=== PATIENT | male | born 1940 | race Caucasian/White ===

== ENCOUNTER → 2018-01-02 09:33 | Outpatient (CLI) | payer MEDICARE, SELFPAY ==
--- NOTE | 2018-01-02 09:55 | RAD_ITS ---
PROCEDURE: FLUOROSCOPIC GUIDED RIGHT SHOULDER ARTHROGRAM for pain management. DATE: 01/02/2018 CLINICAL INDICATION: Male, 77 years old. Right shoulder pain for years. Right shoulder osseous or arthritis. FLUOROSCOPY TIME: 0:36 min/sec. Total images: 4 CONSENT: Informed written and witnessed consent was obtained from the patient. The risks (including bleeding, infection, nerve damage, allergic reaction and capsular rupture), benefits, and alternatives to the examination were detailed and acknowledged by the patient. FINDINGS: The patient was draped and prepared in a sterile fashion. The entrance site was localized using fluoroscopic guidance. Local anesthesia was achieved with 1% lidocaine solution. A 22-gauge spinal needle and stylet were introduced with fluoroscopic guidance into the right shoulder joint capsule and approximately 3 cc 1% lidocaine and 3 cc of iodinated contrast (Omnipaque 300) was instilled into the joint space with extension to the vein under direct fluoroscopic observance. Subsequently, 4 cc 1% lidocaine and 2 cc betamethasone was injected into the joint space with the same 22-gauge spinal needle and tubing exchanging syringes. The needle was then removed after replacing the stylet. The entrance site was dressed with a Band-Aid. There were no immediate postprocedural complications identified. Appropriate imaging was obtained. Incidentally observed was a single rotator cuff anchor screw projecting over the superior-lateral humeral head. IMPRESSION: Normal right shoulder arthrogram and lidocaine/and betamethasone injection for pain management without immediate complication identified. Prior right rotator cuff surgical repair. Electronically Signed: Paulo Farias, at 12:59 EDT Tel , Service support , RAD/Inj/Asp [place] Jt Should/Hip/Knee
== END ==
PROVIDERS: Family Provider Nurse Practitioner Primary Care; PCP Nurse Practitioner Primary Care; Visit Provider Specialist
DX: M19.011 Primary osteoarthritis, right shoulder (principal)
CPT/HCPCS: 20610; 77002; Q9967; J0702

== ENCOUNTER 2019-04-18 11:21 | Outpatient (RCR) | payer MEDICARE, SELFPAY ==
--- NOTE | 2019-04-18 12:46 | HP.PTEVAL ---
Patient's Visit Information DEAN NOBLES is a 79 year old M referred to Physical Therapy by Alcides Grant MD with a diagnosis of NEUROPATHY. Date of Evaluation: 04/18/19 Physical Therapist: Alcides Cr PT, Cert MDT, OCS - Visit Plan Frequency: 1 VISIT Plan: RECOMMENDED PMD TO MAXIMIZE PATIENT LEVEL OF FUNCTION DUE TO POOR ENDURANCE,WEAKNESS LE ,POOR SENSATION LEGS ALONG WITH COMORBITIES . - Subjective Findings: This 79 y/o male presents to physical therapy with neuropathy. 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 Patient has limiations with walking about 20 feet ,but patient uses manual w/c mainly in home . Patient able to dress self,patient has walk in shower with chair and seat,grab rails. Patient does cooking.HOME SITUATION : 2story home with patient stays 1st floor walk out. Patient has parathesia/tingling lower legs unable feel light touch.Patient co ndition affects QOL and function. Patient has difficulty with ADLS' and housework tasks.Patient uses sleep apnea with sleeping.. Patient has 02 as needed. SOCIAL: . VOCATION: retired - Pain Right Shoulder Pain Intensity (Out of 10): 5 Pain Intensity Range: 10 - Objective POSTURE: posterior pelvic tilt ,stands with hips/knees flexed calcaneal valgus bilateral ankles. PALPATION : unremarkable. NEURO: parathesia below knees ,light touch absent below lower legs,reflexes L3-4,L4-5,L5-S1 1/2. TRANSFERS: sit stand mod Independant. BED MOBLITY: mod I with supin-sit. GAIT: Ambulates with fww foward posture calcaneal valgus bilateral ankle ,hip knees flexion slow 20 ft with SBA. BALANCE: fair- with fww. AROM: knee flexion 10-110 supine knee flexion,hip flexion 90 right left 95 degree,BUE ROM WFL shoulder flexion 130 degrees. MMT: quads/hams 4-/5,hip flexion 3+/5,ankle DF 3/4,PF 2/3,hip abd 2/5,BUE 4-/5 except shoulder 3+/ - Goals Goal 1:: Recommend PMD to maximize patient moblity . Goal Time Frame: 1 visit - Rehabilitation Potential Physical Therapy Diagnosis: This patient has multiple comorbities along with poor endurance ,decrease strength ,poor senstation lowe legs,decrease gait thus benifit from PMD for in home and community mobility to maximize patients level of function. Rehabilitation Potential: Fair - Anticipated Interventions Patient/Client Instruction: Educate patient on: Condition, Plan of Care For the Purpose of:: Other Other: PMD-POWER MOTOR DEVICE Thank you for the opportunity to evaluate your patient. For Medicare and Medicare HMO plans, please review the plan of care and approve it. It will need to be FAXED BACK to us at [phone] for Medicare purposes. For Medicare only, by signing this I certify the plan of care. Please let me know if there are questions or concerns regarding this plan of care. Physician Signature: Date:
== END 2019-04-18 19:00 | disposition home or self-care (01) ==
LOC: PT 11:21
PROVIDERS: Family Provider Nurse Practitioner Primary Care; PCP Nurse Practitioner Primary Care; Visit Provider Psychiatry & Neurology Neurology
DX: G62.9 Polyneuropathy, unspecified (principal)
CPT/HCPCS: 97163

== ENCOUNTER 2019-08-21 08:41 | Inpatient (IN) | payer MEDICARE, SELFPAY ==
--- NOTE | 2019-08-05 12:44 | HP.PCM_ITS ---
History and Physical History and Physical Patient Name: Maninder Camp : 1940 From: NINFA MARCIAL PA-C DATE OF SURGERY: 08/21/2019 SCHEDULED PROCEDURE: right reverse total shoulder arthroplasty HISTORY OF PRESENT ILLNESS: Preoperative history and physical exam was performed on August 05, 2019. This is a 79-year-old male who has been having ongoing pain in his right dominant shoulder for the past 1-2 years. His pain as being constant. Patient does have a history of a previous rotator cuff repair approximately [address] Singh. Patient denied any postoperative complications. Pain can reach a size a 10/10 with activities. He has difficulty with overhead activity and reaching out. Patient is wheelchair bound and is dependent upon his upper extremities for transfers. The shoulder pain has significantly affected his ability throughout the day as well as his independence. X-rays have shown severe glenohumeral osteoarthritis. Patient has attempted intra-articular corticosteroid injection with no relief in symptoms. He has been through formal physical therapy without relief. After failing conservative measures and discussing treatment options with Dr. Yifan Gottlieb, the patient does wish to proceed with a right reverse total shoulder arthroplasty. We are obtaining surgical clearance from patient's primary care physician Niecy Moe, nurse practitioner. Patient denies chest pain, short of breath, fevers chills, recent infections. Patient does have medical history pertinent for significant neuropa thy in which she has required use wheelchair and has limited mobility. He also has history of sleep apnea, and probable benign prostatic hyperplasia in which he uses Flomax. Patient states he sees a urologist but does not know his definitive diagnosis. She does have history of thyroid disease and hypertension. REVIEW OF SYSTEMS: ROS: Const: Denies change in appetite, fever,or weight change. CV: Denies chest pain, heart murmur and irregular heartbeat. Resp: Reports pneumonia, but denies cough, SOB, tuberculosis and wheezing. GI: Denies constipation, diarrhea, difficulty swallowing, heartburn, nausea, bloody stools and vomiting. : Urinary: denies incontinence. Musculo: Reports trouble walking and weakness, but denies leg swelling and limp. Skin: Denies Raynaud's, history of shingles and tattoo. Neuro: Reports numbness/tingling but denies ambulatory dysfunction, dizziness and tremor. Psych: Reports anxiety and stress, but denies insomnia. Eduard/Lymph: Denies anemia, bleeding/bruising tendency and past transfusion. Reviewed, no changes. PAST MEDICAL HISTORY: Advance Care Plan: Other Directive, POA Effective Date: 07/25/2019 PMH: Medical Problems: Arthritis, High Blood Pressure, Sleep Apnea, Thyroid Disease Accidents: None Surgical Hx: Hernia Repair, Tonsillectomy RT Shoulder - (02/2018) Hip Replacement LT - (2013) Hip Replacement RT - (2013) LT Foot Anesthesia Complications: None Assistive Devices: Glasses, Dentures, Walker, Electric Wheelchair Reviewed, no changes. SOCIAL HISTORY: SH: Marital: .Occupation: Retired.Work Status: Retired.Hand Dominance: Right-handed. Personal Habits: Cigarette Use: Never Smoked Cigarettes.Alcohol: Denies use.Drug Use: Denies Use.Enjoy Exercising: Exercises 1-3 X/Week. Reviewed, no changes. VITALS: Ht: 68 Wt: 247lb Wt k.039 BMI: 37.6 BP: 130/84 Pulse: 68 Resp: 16 T: 97.3 T: 36.3C ALLERGIES: Ahist Antihistamine MEDICATIONS: Meloxicam 7.5 mg 1 by mouth twice a day, Tamsulosin HCL 0.4 mg 1 by mouth every day, Duloxetine HCL 60 mg 1 by mouth every day, Olanzapine 10 mg 1po qday, Diltiazem CD 240 mg 1po qday, Furosemide 20 mg 1 by mouth every day, Simvastatin 20 mg 1 by mouth every day, Losartan Potassium 50 mg 1 by mouth every day, Xanax 1 mg 1 tab by mouth 3 times daily, Levothyroxine Sodium 125 mcg 1 tab by mouth daily, Ferrous Sulfate 325 mg 2 by mouth every day, Tolterodine Tartrate 2 mg 1 by mouth every day PRE-OP EXAM: General appearance:NORMAL Other: Eyes: Conjunctivae and lids: NORMAL Pupils: ERR Ears, Nose, Mouth, and Throat: NORMAL Other: Inspection of lips, teeth and gums: NORMAL Other: Neck: Examination of neck: no masses noted. Respiratory: Assessment of respiratory effort: NORMAL Other: Auscultation of lungs: clear to auscultation no wheezes, rhonchi or rales. Cardiovascular: Auscultation of heart: regular rate and rhythm, no murmurs, gallops or rubs. Gastrointestinal: Exam of abdomen: soft, nontender, nondistended bowel sounds present. PHYSICAL EXAMINATION: Right shoulder scope to touch without erythema or signs of infection. Previous incisions/scars are well-healed without erythema. There is no significant atrophy. Range of motion: Forward flexion 110 actively on the right and 130 on the left, external rotation 25 bilaterally, internal rotation L5 on the right and L3 on the left. Supraspinatus strength is 4+/5 bilaterally. Sensation intact to light touch. IMAGING STUDIES: Previous x-rays of the right shoulder reveal severe humeral osteoarthritis with joint space narrowing, posterior erosions of the glenoid and osteophyte forma tion. There is previous anchor in the humeral head consistent with rotator cuff repair. There is sclerosis on the undersurface of the acromion and lateral greater tuberosity consistent with chronic rotator cuff dysfunction. IMPRESSION: 1. 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 Hypertension 3. Sleep apnea 4. Thyroid disease 5. Probable benign prostatic hyperplasia: Currently sees urologist but patient unable to give diagnosis, currently uses Flomax PLAN: Dr. Yifan Gottlieb did discuss and review with the patient all treatment options including surgical versus nonsurgical options. Patient does wish to proceed with the above-stated procedure. Potential risks, benefits, and complications of the procedure were discussed in detail including but not limited to , infection, nerve and blood vessel damage, persistent pain, numbness, tingling, paresthesias, blood clot, pulmonary embolism, and requirement for possible further surgery. The patient expressed full understanding and has no further questions for the doctor. Patient does agree to proceed with the above-stated procedure and has signed the surgery consent form. This dictation was created using voice recognition software. Phonetic and/or grammatical errors may exist. ___ I have re-examined the patient. There are no clinical changes since date of exam. ___ See progress notes for changes. ___ Dictated on admission Date: Time: Signature:
--- NOTE | 2019-08-05 13:05 | EKG12_ITS ---
Test Reason : Blood Pressure : / mmHG Vent. Rate : 073 BPM Atrial Rate : 073 BPM P-R Int : 226 ms QRS Dur : 110 ms QT Int : 414 ms P-R-T Axes : 043 -22 -12 degrees QTc Int : 456 ms Somatic/Motion Artifact Sinus rhythm with 1st degree A-V block with Fusion complexes Low voltage QRS Incomplete right bundle branch block Abnormal ECG Confirmed by KAITLIN CRUZ, LORENA ([id number]), photograph editor BASIL MG ([id number]) on 08/12/2019 1:38:19 PM Referred By: REGINA Moe Confirmed By:LORENA MADRIGAL MD
[2019-08-05 13:49] VITALS: BP 159/76; PULSE 74; RESP 18; TEMP 36.5; O2SAT 96; BMI 34.7
--- NOTE | 2019-08-05 14:15 | SDCEKG_ITS ---
Test Reason : Blood Pressure : / mmHG Vent. Rate : 071 BPM Atrial Rate : 071 BPM P-R Int : 240 ms QRS Dur : 118 ms QT Int : 376 ms P-R-T Axes : 034 -19 -12 degrees QTc Int : 408 ms Somatic/Motion Artifact Sinus rhythm with 1st degree A-V block with Fusion complexes Incomplete right bundle branch block Abnormal ECG Confirmed by KAITLIN CRUZ, LORENA ([id number]), makeup editor KAMI CAMPOS ([id number]) on 08/12/2019 9:38:09 AM Referred By: Niecy Moe Confirmed By:LORENA MADRIGAL MD
[2019-08-08 09:13] VITALS: BMI 34.7
[2019-08-21] VITALS (11 sets, daily range): BP systolic 123–160; BP diastolic 56–71; PULSE 52–105; RESP 16–20; TEMP 36.5–37.2; O2SAT 92–100; BMI 34.7
[2019-08-21] MEDS: Lactated Ringers 1,000 ML 100 ML IV (09:33)
[2019-08-21] MEDS: Gabapentin 600 MG Tablet PO (09:34)
[2019-08-21] MEDS: Acetaminophen 500 MG Tablet 1000 MG PO ×2 (09:34→19:39)
[2019-08-21] MEDS: Celecoxib 200 MG Capsule 400 MG PO (09:34)
[2019-08-21] MEDS: Magnesium Sulfate 4gm/100mL 4 GM/100 ML IV.SOLN. IV (09:35)
[2019-08-21 10:11] LABS: Bedside Glucose 74 mg/dL (70-110)
[2019-08-21] MEDS: Cefazolin 2 GM in 0.9% Normal Saline 100 ML IV (11:12)
[2019-08-21] MEDS: dexAMETHasone 10 MG/ML Vial IV (11:30)
[2019-08-21] MEDS: Ketorolac 30 MG/ML Syringe (12:45)
[2019-08-21] MEDS: Epinephrine (1 mg/ml) 1 MG/ML VIAL (12:45)
--- NOTE | 2019-08-21 12:45 | OP.PCM_ITS ---
Report of Operation Date of Procedure: 08/21/19 Pre-Operative Diagnosis: Right shoulder cuff tear arthropathy Post-Operative Diagnosis: Right shoulder cuff tear arthropathy Surgery/Procedure Performed:: Right reverse total shoulder replacement Description of Surgical Findings:: Stable shoulder, repaired subscapularis air conditioning engineer: Daniel Peraza Type of Anesthesia:: General Anesthesiologist: Derrell Arriaga Special Medications: 2 g Ancef, 1 g TXA at incision, 1 g TXA closure, 10 mg Decadron, joint cocktail (5 mg Duramorph, 30 mL of 0.5% Ropivicaine, 1000 units of epinephrine, 30 mg of Toradol), IV vancomycin Specimen's removed: Bony cuts Estimated Blood Loss (mL): 200 mL Fluids Replaced: 1500 mL crystalloid Description of Procedure: Components used, [place] reunion reverse total shoulder system 1. Standard glenoid baseplate 2. 36 mm +6 mm Glenosphere 3. 36 mm, 4mm humeral liner 4. reverse TSA humeral adapter tray 4mm 5. Short humeral stem primary press-fit 17 mm size Brief history/Operative indications: 79 yo m with history of R shoulder pain and cuff tear arthropathy. Patient failed conservative measures as mentioned in the H&P. After discussion of risk and benefits of reverse total shoulder replacement including but not limited to blood loss, DVTs, PEs, nerve vessel damage, infection, general risk of anesthesia including loss of life, instability and stiffness patient demonstrating understanding wish to proceed was able to sign informed consent. Medical clearance was obtained. Patient is walker dependent due to other disabilities. Due to this we discussed the risk of early failure and protected weightbearing for the first 3 months after surgery. This will also likely require additional care and potential group home postoperatively. Procedure: On the date of the procedure, patient's r upper extremity was marked in the preoperative area. Patient was taken back to the operating room where they were placed on the table in the supine position. Anesthesia assumed control of the C-spine and airway, then administered anesthetic. All bony prominences were identified well-padded, the head was secured and the patient was placed in the beachchair position at about 35? inclination. Anesthesia remained in control of the C-spine airway throughout the remainder of the procedure. Patient was then appropriately fastened to the table and the r upper extremity was prepped in a sterile fashion. The surgeons then scrubbed. Upon reentering the room, the r upper extremity was draped in a sterile fashion and the incision was marked out. Timeout was called, everyone agreed upon the side, the site, the procedure to be performed, patient identity and antibiotics given. Incision was taken down through skin and subcutaneous tissue, fat down to fascia. The stripe of the deltopectoral interval and cephalic vein were identified and blunt dissection was used to retract the deltoid. The cephalic vein was retracted laterally. Clavipectoral fascia was then incised and a cobra retractor was placed in the wound. The proximal one third of the pectoralis major insertion was released. Pectoralis tendon insertion was used to tenodesed the biceps tendon which was identified in the bicipital groove. Tenodesis was done with #1 Vicryl. Proximally we followed the biceps tendon after transecting it into the rotator interval. The rotator interval was split and the arm was externally rotated. The split was 1 cm medial to the bicipital groove. Subscapularis tendon was released. We released down the anterior portion of the humeral head and a alexandra elevator was used to release the inferior portion of the humeral head. The arm was externally rotated and the shoulder was dislocated. Anatomic version was used to make humeral cut. Once his humeral head cut was made humerus was retracted out of the way and the glenoid was exposed. After exposing the glenoid, the labrum and the remaining proximal biceps were debrided. At this time we are able to view the entire outer edge of the glenoi d. A central pin was placed we sequentially reamed over this central pin to 36mm. Once this was completed the central pedicle was drilled. The glenoid baseplate was impacted into place. Wound was closely irrigated out with normal saline we then drilled sequentially for 3 screws. Screws were placed superiorly and inferiorly and tightened down the screws. Then anteriorly. Once the screws were appropriately tightened into place the glenoid baseplate was compressed against the exposed subchondral bone. 36 mm glenosphere was impacted into place engaging the Jimenez taper. The central screw was then tightened into place. Attention was then turned towards the humerus. The humerus was again externally rotated exposing the proximal portion of the humerus. Central canal finder was then used to open up the canal. We reamed to a 17mm reamer. We then broached to a 17mm stem. We trialed the 4mm liner, with the 4mm humeral baseplate. We obtained an adequate reduction at this time with a nice stable shoulder. Good internal rotation to the gluteus, forward elevation to 140?, external rotation to 20?. Final components were then assembled on the back table, trials were removed and the wound was copiously irrigated with normal saline after dislocating the shoulder. Once the final components were assembled they were impacted into place. Shoulder was then reduced and found to be stable with good range of motion. Subscapularis tendon was repaired using #2 FiberWire. The wound was then copiously irrigated out with a 1 L normal saline lavage. The deltopectoral fascia was then closed using #1 Vicryl skin was closed using 2-0 Vicryl interrupted sutures and final skin closure was done with 3-0 Monocryl. Steri-Strips are placed for final skin closure. Sterile dressing was placed patient was then placed in a sling and awakened by anesthesia. Patient was then transferred to the PACU for recovery. Postoperative plan: Patient will be admitted to the hospital overnight. They will get physical therapy starting in 2 weeks with normal postoperative regimen. Patient will be placed on aspirin daily for DVT prophylaxis. The first postoperative appointment will be in 2 weeks for wound check and initiation of phase 1 physical therapy. Grafts/Implants Used: Kylie reunion - Complications No intraoperative complications - Admit VTE Documentation VTE Present on Admission: No VTE Mechan Device Prophylaxis: SCD's, Knee High MONE Hose VTE Pharm Prophylaxis ordered?: Yes
--- NOTE | 2019-08-21 12:51 | RAD_ITS ---
STUDY: X-RAY - RIGHT SHOULDER REASON FOR EXAM: Postop right shoulder arthroplasty. TECHNIQUE: 2 view(s) of the shoulder. COMPARISON: Shoulder radiograph obtained earlier today. FINDINGS: There is a reverse shoulder arthroplasty without evidence of complication. Status post subacromial decompression/excision of the distal clavicle. There is postoperative gas in the soft tissues. There are overlying leads. Normal visualized pulmonary apex. RAD/Shoulder min 2 Views IMPRESSION: Uncomplicated reverse shoulder arthroplasty. Electronically Signed: Bryce Zapien MD at 14:28 EST Tel , Service support ,
--- NOTE | 2019-08-21 12:54 | RAD_ITS ---
STUDY: X-RAY - RIGHT SHOULDER REASON FOR EXAM: Male, 79 years old. Possible foreign body during surgery. TECHNIQUE: Single frontal view(s) of the shoulder. COMPARISON: None. FINDINGS: The patient is status post right shoulder replacement. No radiopaque foreign body seen. RAD/Shoulder One View IMPRESSION: No radiopaque foreign body is seen. Electronically Signed: Baldemar Tracy, at 13:23 EST , Service support ,
--- NOTE | 2019-08-21 16:27 | PCM.PROGNOTE ---
Subjective: Patient seen and examined. Underwent right reverse total shoulder replacement today with Dr. Gottlieb. Currently resting comfortably in bed. Hospitalist services consulted for medical management. He has a past medical history of hypertension, hyperlipidemia, obstructive sleep apnea, hypothyroidism, BPH, depression, iron deficiency anemia. - Physical Exam Vitals/I&O's: Vital Signs Temp Pulse Resp BP Pulse Ox 98.2 F 84 16 157/63 H 96 08/21/19 14:59 08/21/19 14:59 08/21/19 15:00 08/21/19 14:59 08/21/19 15:00 Oxygen Flow Rate (L/min) 6 Oxygen Delivery Method Simple Mask Weight: 249 lb 1.957 oz Body Mass Index (BMI) 34.7 Intake and Output for Last 24 Hours 08/19/19 08/20/19 08/21/19 23:59 23:59 23:59 Intake Total 965 / 965 Balance 965 / 965 General: Alert, Oriented x3, Cooperative HEENT: Atraumatic, PERRLA, EOMI, Normocephalic Neck: Supple, No JVD, Negative Carotid Bruits Lungs: Clear to auscultation, Normal air movement Cardiovascular: Regular rate, Regular Rhythm, Normal S1, Normal S2, No murmurs Abdomen: Bowel Sounds Present, Soft, Non Tender, Non-Distended Extremities: No clubbing, No cyanosis, No edema, Capillary Refill Less than 3 Seconds Skin: No rashes, No breakdown Musculoskeletal: Tenderness - Right shoulder Neurological: Cranial nerves II-XII grossly intact, Neuro grossly intact Psych/Mental Status: Normal Affect, Appropriate Laboratory Results 08/21/19 09:39: POC Glucose 74 Current Medications Acetaminophen (Tylenol) 1,000 mg PO Q8 [facility] Alprazolam (Xanax) 1 mg PO TID [facility] Aspirin (Ecotrin) 81 mg PO DAILY@0800 [facility] Atorvastatin Calcium (Lipitor) 10 mg PO QHS [facility] Diltiazem HCl (Cardizem Cd) 240 mg PO QHS [facility] Duloxetine HCl (Cymbalta) 60 mg PO DAILY [facility] Enteral Nutritional Formula (Ensure Surgery) 237 ml PO TIDCM [facility] Famotidine (Pepcid) 20 mg PO DAILY [facility] Ferrous Sulfate (Ferrous Sulfate) 325 mg PO QHS [facility] Furosemide (Lasix) 10 mg PO DAILY [facility] Lactated Ringer's () 1,000 mls @ 100 mls/hr IV .Q10H [facility] Last Admin: 08/21/19 09:33 Dose: 100 mls/hr Documented by: Lactated Ringer's () 1,000 mls @ 125 mls/hr IV .Q8H [facility] Cefazolin Sodium () 1 gm in 50 mls @ 150 mls/hr IV Q8H [facility] Stop: 08/22/19 03:19 Sodium Chloride () 250 mls @ 15 mls/hr IV .[id number] PRN PRN Reason: Saline Flush Insulin Human Lispro (Humalog Kwikpen (Bkc)) 1 - 6 unit SC Q4H PRN PRN; Protocol PRN Reason: BG>/= 180, SEE PROTOCOL Stop: 08/21/19 17:30 Ketorolac Tromethamine (Toradol) 15 mg IV Q6H PRN PRN PRN Reason: Pain Score 1-5/10 Levothyroxine Sodium (Synthroid) 125 mcg PO DAILY@0600 [facility] Losartan Potassium (Cozaar) 50 mg PO DAILY [facility] Meloxicam (Mobic) 7.5 mg PO BID [facility] Morphine Sulfate () 2 - 4 mg IV Q2H PRN PRN PRN Reason: Pain Score 6-10/10 Morphine Sulfate () 2 - 4 mg IV Q2H PRN PRN PRN Reason: Pain Score 6-10/10 Olanzapine (Zyprexa) 10 mg PO DAILY [facility] Ondansetron HCl (Zofran) 4 mg IV Q8H PRN PRN PRN Reason: NAUSEA Oxycodone HCl (Oxyir) 2.5 mg PO Q4H PRN PRN PRN Reason: Pain Score 4-10/10 Promethazine HCl (Phenergan) 12.5 mg IM Q6H PRN PRN; Protocol PRN Reason: NAUSEA/VOMITING Senna/Docusate Sodium (Senokot-S, Loretta-Colace) 2 tablet PO BID [facility] Sodium Chloride () 10 - 40 ml IV UD PRN PRN Reason: SALINE FLUSH Tamsulosin HCl (Flomax) 0.4 mg PO QHS [facility] Tolterodine Tartrate (Detrol La) 2 mg PO DAILY [facility] Medical Necessity - Tobacco Use Smoking Status: Never smoker Tobacco Use: Non-smoker Assessment/Plan All Active Problems (This Medical Record has been edited. Action required.) Preop cardiovascular exam (Acute) Abnormal EKG (Acute) 1. Postop day 1 reverse right total shoulder replacement by Dr. Gottlieb- PT/PT/ PRN pain regimen. Management per Ortho. 2. Hypertension-stable, continue Cardizem, Lasix, losartan regimen. 3. Hyperlipidemia-continue statin. 4. Obstructive sleep apnea-continue home CPAP regimen. 5. Hypothyroidism-continue Synthroid. 6. BPH-continue Flomax, Detrol LA regimen. 7. Depression-continue duloxetine regimen. 8. Iron deficiency anemia-continue iron supplementation. Trend CBC. DVT prophylaxis-SCDs This patient was seen by REGINA Garcia under the supervision of Dr. Saleh.
[2019-08-21] MEDS: Ensure Surgery 237 ML LIQUID PO (17:33)
[2019-08-21] MEDS: Lactated Ringers 1,000 ML 125 ML IV (17:34)
[2019-08-21] MEDS: Cefazolin 1 GM/50 ML BAG IV (19:00)
[2019-08-21] MEDS: ALPRAZolam 0.5 MG Tablet 1 MG PO (21:30)
[2019-08-21] MEDS: Senna/Docusate Sodium 1 Tablet 2 TABLET PO (21:31)
[2019-08-21] MEDS: Atorvastatin Calcium 10 MG Tablet PO (21:31)
[2019-08-21] MEDS: Tamsulosin HCl 0.4 MG Capsule PO (21:31)
[2019-08-21] MEDS: dilTIAZem CD 240 MG Capsule PO (21:31)
[2019-08-21] MEDS: Ferrous Sulfate 325 MG Tablet PO (21:32)
[2019-08-22] MEDS: Cefazolin 1 GM/50 ML BAG IV (02:05)
[2019-08-22] MEDS: Lactated Ringers 1,000 ML 125 ML IV (02:05)
[2019-08-22] MEDS: Acetaminophen 500 MG Tablet 1000 MG PO ×3 (05:36→21:12)
[2019-08-22] MEDS: Levothyroxine 125 MCG Tablet PO (05:37)
[2019-08-22] MEDS: ALPRAZolam 0.5 MG Tablet 1 MG PO ×3 (05:37→21:11)
[2019-08-22 05:39] VITALS: BP 140/68; PULSE 86; RESP 18; TEMP 36.9; O2SAT 96
[2019-08-22 05:44] LABS: Hematocrit 34.1 % (40-54); Hemoglobin 11.2 g/dL (13.0-16.5); Mean Corp Hgb Conc 32.8 g/dL (32-36); Mean Corpuscular Hgb 30.1 pg (27.0-32.0); Mean Corpuscular Volume 91.7 fL (80-94); Mean Platelet Vol. 9.3 fl (6.2-12.0); Platelet Count 223 K/mm3 (150-450); RBC Distribution Width CV 13.8 % (11.6-14.6); RBC Distribution Width SD 47.1 fl (35.1-43.9); Red Blood Count 3.72 M/mm3 (4.6-6.2); White Blood Count 18.9 K/mm3 (4.4-11.0)
[2019-08-22 05:57] LABS: Anion Gap 4 (5-15); BUN 28 mg/dL (7-18); BUN/Creat Ratio 18.7 RATIO (10-20); Calcium,Total 8.4 mg/dL (8.5-10.1); Chloride 103 mmol/L (98-107); EST Glomerular Filtration Rate 48 mL/min (>60); Est Glom Filt Rate - Afr Amer 58 mL/min (>60); Estimated Creatinine Clearance 42.53 ml/min; Glucose 149 mg/dL (74-106); Potassium 5.1 mmol/L (3.5-5.1); Sodium Level 134 mmol/L (136-145)
[2019-08-22 07:48] VITALS: O2SAT 91
--- NOTE | 2019-08-22 08:06 | PN.ORTHO_ITS ---
Subjective: The patient was sitting in bed upon examination. Patient denies any chest pain, shortness of breath, dizziness, lightheadedness, nausea or vomiting, or calf pain. Pain is controlled on medications. No adverse overnight events. Patient presents in no acute distress and states he has very little right shoulder pain. Patient does have significant medical history with neuropathy and he does require his upper extremities for transfer as well as wheelchair use. He has limited mobility. Patient currently requires 2-3 nurse assist. Due to pat kathie's limitations he will most likely need [facility] facility postoperatively. Objective: Vital signs stable, afebrile Dressing is clean, dry, intact Ultra-sling fitting appropriately Sensation intact to axillary, radial, median, and ulnar distribution Motor intact to AIN, PIN, and ulnar nerve - Physical Exam Vitals/I&O's: Vital Signs Temp Pulse Resp BP Pulse Ox 98.5 F 86 18 140/68 H 91 08/22/19 05:39 08/22/19 05:39 08/22/19 05:39 08/22/19 05:39 08/22/19 07:48 Oxygen Flow Rate (L/min) 2 Oxygen Delivery Method Nasal Cannula Weight: 113 kg Body Mass Index (BMI) 34.7 Intake and Output for Last 24 Hours 08/20/19 08/21/19 08/22/19 23:59 23:59 23:59 Intake Total 2143.33 / 2143.33 866.67 / 866.67 Output Total 1200 / 1200 Balance 2143.33 / 2143.33 -333.33 / -333.33 General: Alert, Oriented x3, Cooperative, No apparent distress Laboratory Results 08/21/19 09:39: POC Glucose 74 08/22/19 05:10: WBC 18.9 H, RBC 3.72 L, Hgb 11.2 L, Hct 34.1 L, MCV 91.7, MCH 30.1, MCHC 32.8, RDW Std Deviation 47.1 H, RDW Coeff of Cherry 13.8, Plt Count 223, MPV 9.3 08/22/19 05:10: Sodium 134 L, Potassium 5.1, Chloride 103, Carbon Dioxide 27.0, Anion Gap 4 L, BUN 28 H, Creatinine 1.50 H, Estim Creat Clear Calc 42.53, Est GFR (MDRD) Af Amer 58 L, Est GFR (MDRD) Non-Af 48 L, BUN/Creatinine Ratio 18.7, Glucose 149 H, Calcium 8.4 L Current Medications Acetaminophen (Tylenol) 1,000 mg PO Q8 [facility] Last Admin: 08/22/19 05:36 Dose: 1,000 mg Documented by: Alprazolam (Xanax) 1 mg PO TID [facility] Last Admin: 08/22/19 05:37 Dose: 1 mg Documented by: Aspirin (Ecotrin) 81 mg PO DAILY@0800 [facility] Atorvastatin Calcium (Lipitor) 10 mg PO QHS [facility] Last Admin: 08/21/19 21:31 Dose: 10 mg Documented by: Diltiazem HCl (Cardizem Cd) 240 mg PO QHS [facility] Last Admin: 08/21/19 21:31 Dose: 240 mg Documented by: Duloxetine HCl (Cymbalta) 60 mg PO DAILY [facility] Enteral Nutritional Formula (Ensure Surgery) 237 ml PO TIDCM [facility] Last Admin: 08/21/19 17:33 Dose: 237 ml Documented by: Famotidine (Pepcid) 20 mg PO DAILY [facility] Ferrous Sulfate (Ferrous Sulfate) 325 mg PO QHS [facility] Last Admin: 08/21/19 21:32 Dose: 325 mg Documented by: Furosemide (Lasix) 10 mg PO DAILY [facility] Lactated Ringer's () 1,000 mls @ 125 mls/hr IV .Q8H [facility] Last Infusion: 08/22/19 02:25 Dose: 125 mls/hr Documented by: Sodium Chloride () 250 mls @ 15 mls/hr IV .[id number] PRN PRN Reason: Saline Flush Ketorolac Tromethamine (Toradol) 15 mg IV Q6H PRN PRN PRN Reason: Pain Score 1-5/10 Levothyroxine Sodium (Synthroid) 125 mcg PO DAILY@0600 [facility] Last Admin: 08/22/19 05:37 Dose: 125 mcg Documented by: Losartan Potassium (Cozaar) 50 mg PO DAILY [facility] Morphine Sulfate () 2 - 4 mg IV Q2H PRN PRN PRN Reason: Pain Score 6-10/10 Morphine Sulfate () 2 - 4 mg IV Q2H PRN PRN PRN Reason: Pain Score 6-10/10 Olanzapine (Zyprexa) 5 mg PO DAILY [facility] Ondansetron HCl (Zofran) 4 mg IV Q8H PRN PRN PRN Reason: NAUSEA Oxycodone HCl (Oxyir) 2.5 mg PO Q4H PRN PRN PRN Reason: Pain Score 4-10/10 Promethazine HCl (Phenergan) 12.5 mg IM Q6H PRN PRN; Protocol PRN Reason: NAUSEA/VOMITING Senna/Docusate Sodium (Senokot-S, Loretta-Colace) 2 tablet PO BID [facility] Last Admin: 08/21/19 21:31 Dose: 2 tablet Documented by: Sodium Chloride () 10 - 40 ml IV UD PRN PRN Reason: SALINE FLUSH Tamsulosin HCl (Flomax) 0.4 mg PO QHS [facility] Last Admin: 08/21/19 21:31 Dose: 0.4 mg Documented by: Tolterodine Tartrate (Detrol La) 2 mg PO DAILY [facility] Medical Necessity - Tobacco Use Smoking Status: Never smoker Tobacco Use: Non-smoker Assessment/Plan All Active Problems (This Medical Record has been edited. Action required.) Preop cardiovascular exam (Acute) Abnormal EKG (Acute) 1. S/P right reverse total shoulder arthroplasty POD #1 2. Continue Pain Medications: Tylenol primarily for pain control with oxycodone for severe breakthrough pain 3. DVT Prophylaxis: Aspirin 4. PT/OT: Nonweightbearing right upper extremity and no range of motion of right shoulder at this time. Continue with UltraSling at all times except 3-4 times daily working on range of motion of the elbow, wrist, hand only. He can use pendulum exercises as well. He will begin outpatient formal physical therapy 2 weeks postoperatively 5. H & H: 11.2/34.1, asymptomatic 6. Reactive leukocytosis: Currently 18.9, afebrile. Patient did receive Decadron intraoperatively 7. Continue postoperative medical management per medicine: Patient did have elevated creatinine level today at 1.5 but on preop lab work on August 13, 2019 creatinine was 1.17. Appreciate medical input for management of comorbidities. 8. Encouraged Incentive Spirometry 9. Disposition: Due to patient's comorbidities and significant neuropathy patient will most likely require additional care upon discharge. Patient currently requires significant use of his upper extremities for transfers and mobility. However since he has had the reverse total shoulder arthroplasty we do not want him putting any weight on the right upper extremity with transfers. Case management is involved and I would like physical therapy/Occupational Therapy to evaluate patient. Patient will most likely need additional care.
[2019-08-22 09:22] VITALS: BP 129/64; PULSE 93; RESP 18; TEMP 36.9; O2SAT 97
[2019-08-22] MEDS: Famotidine 20 MG Tablet PO (09:31)
[2019-08-22] MEDS: Senna/Docusate Sodium 1 Tablet 2 TABLET PO ×2 (09:33→21:13)
[2019-08-22] MEDS: DULoxetine Hcl 60 MG Capsule PO (09:33)
[2019-08-22] MEDS: Tolterodine Tartrate 2 MG CAP.SA PO (09:33)
[2019-08-22] MEDS: Furosemide 20 MG Tablet 10 MG PO (09:34)
[2019-08-22] MEDS: Losartan Potassium 50 MG Tablet PO (09:35)
[2019-08-22] MEDS: Aspirin E.C. 81 MG Tablet PO (09:35)
[2019-08-22] MEDS: 0.9% Saline Lock 10 ML Syringe IV (09:37)
[2019-08-22] MEDS: Ensure Surgery 237 ML LIQUID PO ×2 (09:37→15:42)
[2019-08-22] MEDS: OLANZapine 2.5 MG Tablet 5 MG PO (09:43)
--- NOTE | 2019-08-22 10:27 | PN_ITS ---
Subjective: Chief complaint: Follow-up after consultation for postoperative medical management. Patient seen and examined. No acute events overnight. This morning, he denied any right shoulder pain. He took only 2 Tylenol last night. No chest pain or shortness of breath. He mentioned that he does have some degree of chronic kidney disease but is not sure what his baseline kidney function. His vital signs are stable. - Physical Exam Vitals/I&O's: Vital Signs Temp Pulse Resp BP Pulse Ox 98.5 F 93 18 129/64 H 97 08/22/19 09:22 08/22/19 09:22 08/22/19 09:22 08/22/19 09:22 08/22/19 09:22 Oxygen Flow Rate (L/min) 2 Oxygen Delivery Method Nasal Cannula Weight: 249 lb 1.957 oz Body Mass Index (BMI) 34.7 Intake and Output for Last 24 Hours 08/20/19 08/21/19 08/22/19 23:59 23:59 23:59 Intake Total 2143.33 / 2143.33 1766.67 / 1766.67 Output Total 1200 / 1200 Balance 2143.33 / 2143.33 566.67 / 566.67 General: Alert, Oriented x3, Cooperative, No apparent distress HEENT: Atraumatic, PERRLA, EOMI, Normocephalic Oral: Moist Mucosa, No Gingival or Mucosal Lesions/ Ulcerations Neck: Supple, No JVD, Negative Carotid Bruits, Trachea Midline, Thyroid Normal Size and Texture Lungs: Clear to auscultation, Normal air movement, No rhonchi, No wheeze, No rales, Diminished Cardiovascular: Regular rate, Regular Rhythm, Normal S1, Normal S2, PMI Normal Abdomen: Bowel Sounds Present, Soft, Non Tender, Non-Distended, No Hepato- splenomegaly, Obese Extremities: No clubbing, No cyanosis, No edema Skin: No rashes, No breakdown Lymphatic: No Cervical, Supraclavicular, or Inguinal Adenopathy Neurological: Cranial nerves II-XII grossly intact, Motor Exam 5/5 strength throughout Psych/Mental Status: Normal Affect, Appropriate, Alert and oriented to time, place, person, mood and affect Laboratory Results 08/22/19 05:10: WBC 18.9 H, RBC 3.72 L, Hgb 11.2 L, Hct 34.1 L, MCV 91.7, MCH 30.1, MCHC 32.8, RDW Std Deviation 47.1 H, RDW Coeff of Cherry 13.8, Plt Count 223, MPV 9.3 08/22/19 05:10: Sodium 134 L, Potassium 5.1, Chloride 103, Carbon Dioxide 27.0, Anion Gap 4 L, BUN 28 H, Creatinine 1.50 H, Estim Creat Clear Calc 42.53, Est GFR (MDRD) Af Amer 58 L, Est GFR (MDRD) Non-Af 48 L, BUN/Creatinine Ratio 18.7, Glucose 149 H, Calcium 8.4 L Current Medications Acetaminophen (Tylenol) 1,000 mg PO Q8 [facility] Last Admin: 08/22/19 05:36 Dose: 1,000 mg Documented by: Alprazolam (Xanax) 1 mg PO TID [facility] Last Admin: 08/22/19 05:37 Dose: 1 mg Documented by: Aspirin (Ecotrin) 81 mg PO DAILY@0800 [facility] Last Admin: 08/22/19 09:35 Dose: 81 mg Documented by: Atorvastatin Calcium (Lipitor) 10 mg PO QHS [facility] Last Admin: 08/21/19 21:31 Dose: 10 mg Documented by: Diltiazem HCl (Cardizem Cd) 240 mg PO QHS [facility] Last Admin: 08/21/19 21:31 Dose: 240 mg Documented by: Duloxetine HCl (Cymbalta) 60 mg PO DAILY [facility] Last Admin: 08/22/19 09:33 Dose: 60 mg Documented by: Enteral Nutritional Formula (Ensure Surgery) 237 ml PO TIDCM [facility] Last Admin: 08/22/19 09:37 Dose: 237 ml Documented by: Famotidine (Pepcid) 20 mg PO DAILY [facility] Last Admin: 08/22/19 09:31 Dose: 20 mg Documented by: Ferrous Sulfate (Ferrous Sulfate) 325 mg PO QHS [facility] Last Admin: 08/21/19 21:32 Dose: 325 mg Documented by: Furosemide (Lasix) 10 mg PO DAILY [facility] Last Admin: 08/22/19 09:34 Dose: 10 mg Documented by: Lactated Ringer's () 1,000 mls @ 75 mls/hr IV .[id number] [facility] Stop: 08/22/19 02:14 Last Admin: 08/22/19 09:43 Dose: Not Given Documented by: Sodium Chloride () 250 mls @ 15 mls/hr IV .[id number] PRN PRN Reason: Saline Flush Ketorolac Tromethamine (Toradol) 15 mg IV Q6H PRN PRN PRN Reason: Pain Score 1-5/10 Levothyroxine Sodium (Synthroid) 125 mcg PO DAILY@0600 [facility] Last Admin: 08/22/19 05:37 Dose: 125 mcg Documented by: Losartan Potassium (Cozaar) 50 mg PO DAILY [facility] Last Admin: 08/22/19 09:35 Dose: 50 mg Documented by: Morphine Sulfate () 2 - 4 mg IV Q2H PRN PRN PRN Reason: Pain Score 6-10/10 Morphine Sulfate () 2 - 4 mg IV Q2H PRN PRN PRN Reason: Pain Score 6-10/10 Olanzapine (Zyprexa) 5 mg PO DAILY [facility] Last Admin: 08/22/19 09:43 Dose: 5 mg Documented by: Ondansetron HCl (Zofran) 4 mg IV Q8H PRN PRN PRN Reason: NAUSEA Oxycodone HCl (Oxyir) 2.5 mg PO Q4H PRN PRN PRN Reason: Pain Score 4-10/10 Promethazine HCl (Phenergan) 12.5 mg IM Q6H PRN PRN; Protocol PRN Reason: NAUSEA/VOMITING Senna/Docusate Sodium (Senokot-S, Loretta-Colace) 2 tablet PO BID [facility] Last Admin: 08/22/19 09:33 Dose: 2 tablet Documented by: Sodium Chloride () 10 - 40 ml IV UD PRN PRN Reason: SALINE FLUSH Last Admin: 08/22/19 09:37 Dose: 10 ml Documented by: Tamsulosin HCl (Flomax) 0.4 mg PO QHS [facility] Last Admin: 08/21/19 21:31 Dose: 0.4 mg Documented by: Tolterodine Tartrate (Detrol La) 2 mg PO DAILY [facility] Last Admin: 08/22/19 09:33 Dose: 2 mg Documented by: Medical Necessity - Tobacco Use Smoking Status: Never smoker Tobacco Use: Non-smoker Assessment/Plan This is a 79 years old male patient admitted for elective right reverse total shoulder replacement for right shoulder cuff tear/arthropathy and I am seeing this patient for follow-up after consultation for postoperative medical management. #1 status post reverse right total shoulder replacement: Postoperative day 1. This was done for right shoulder cuff tear/arthropathy. Pain is well controlled. He is on Tylenol PRN, IV morphine PRN as well as OxyIR PRN for pain. His vital signs are stable. Routine blood work from today revealed leukocytosis which is probably reactive, chronic anemia, creatinine of 1.50, BUN of 28 and patient does have a history of stage III chronic kidney disease. Orthopedic surgery on the case. Plan to continue same treatment, repeat CBC and BMP tomorrow morning. #2 stage III chronic kidney disease: Unknown baseline creatinine. Patient is aware that he has chronic kidney disease. Today's BUN is 28, creatinine 1.50. Plan to continue IV fluids, repeat BMP tomorrow morning. #3 hypertension: Blood pressure stable, continue Cardizem, losartan. #4 benign prostatic hypertrophy: Stable, continue Flomax. #5 hypothyroidism: Continue levothyroxine. #6 obstructive sleep apnea: Continue CPAP at night with the same home settings. #7 anxiety/depression: Stable, continue Xanax, Cymbalta and Zyprexa. #8 hyperlipidemia: Continue statins. #9 chronic anemia: Stable hemoglobin and hematocrit, continue iron supplement. #10 DVT prophylaxis: SCDs. This note was generated with [employer] dictation software. It may contain incorrect words, spelling, and punctuation that were not noted in checking the note before signing. Code Visit Inpatient E&M: 25061 Subs Hosp L2
--- NOTE | 2019-08-22 12:05 | CASEMGMT ---
EUGENE BATRES Face to Face with patient for initial transition planning/care coordination assessment. EUGENE BATRES introduced self and role at [facility]. Patient sitting in chair, alert and oriented, at bedside. Patient willing to participate in assessment and is able to answer all questions appropriately. Care providers, pharmacy, and demographics verified. Patient wishes to discharge to TCU if bed available, if not would like [facility]. Patient states he has no further needs or concerns at this time. SW updated regarding request for TCU. CM to follow for discharge planning needs that may arise. PCP: RADHA Moe Specialists: amber Gottlieb; Michael, nephrology; Rudy Preferred Pharmacy: [facility] Insurance: [employer] Prescription Benefit: yes Living Will/HPOA: yes, [place] LNOK: Living Arrangements: Patient lives with in lower level of home, which is handicap accessible. Patient independent for self care Transportation: DME/HHC: Patient has shower chair, raised toilet, grab bars, walker, wheelchair, oxygen 3lpm through [facility], cpap. Patient requesting to go to TCU at discharge. LIZZ checking on bed availability. EUGENE BATRES provided list of C in-network with insurance incase no beds available on TCU. Disposition Plan: TCU vs Home with HHC. Olga CORDERO, RN, CM
[2019-08-22 15:15] VITALS: BP 124/52; PULSE 79; RESP 16; TEMP 36.6; O2SAT 98
--- NOTE | 2019-08-22 15:29 | CASEMGMT ---
Social Work Note EUGENE Shelby updated this worker that pt is requesting TCU at discharge. LIZZ placed a call to referral line and provided referral. LIZZ spoke with Francie in TCU stating she will have a bed for pt on Monday. EUGENE Shelby placed a call to PA and updated PA on bed for pt on Monday and pt is able to stay at [facility] until Monday. LIZZ updated Francie in TCU of this. Plan: TCU Monday pending pre-cert Olga Adair FOOD TECHNICIAN, ROOF [employer]USS MACHINE TENDER
[2019-08-22 21:01] VITALS: BP 149/82; PULSE 75; RESP 16; TEMP 36.8; O2SAT 97
[2019-08-22] MEDS: dilTIAZem CD 240 MG Capsule PO (21:11)
[2019-08-22] MEDS: Ferrous Sulfate 325 MG Tablet PO (21:11)
[2019-08-22] MEDS: Tamsulosin HCl 0.4 MG Capsule PO (21:13)
[2019-08-22] MEDS: Atorvastatin Calcium 10 MG Tablet PO (21:14)
[2019-08-23 02:55] VITALS: BP 126/52; PULSE 67; RESP 16; TEMP 37; O2SAT 96
[2019-08-23] MEDS: Levothyroxine 125 MCG Tablet PO (05:32)
[2019-08-23] MEDS: ALPRAZolam 0.5 MG Tablet 1 MG PO ×3 (05:33→21:35)
[2019-08-23] MEDS: Acetaminophen 500 MG Tablet 1000 MG PO ×3 (05:33→21:33)
[2019-08-23 06:04] LABS: Absolute Lymphocyte Count 1.81 X10^3/uL (0.83-4.51); Absolute Neutrophil Count 9.8 X10^3/uL (2.0-7.7); Basophil# 0.02 X10^3/uL; Basophil% 0.2 % (0-1); Eosinophil# 0.14 X10^3/uL; Eosinophils% 1.1 % (0-5); Hematocrit 30.6 % (40-54); Hemoglobin 10.1 g/dL (13.0-16.5); Lymphocyte # 1.81 X10^3/ul (4.0); Lymphocyte % 13.7 % (19-41); Mean Corpuscular Hgb 30.3 pg (27.0-32.0); Mean Corpuscular Volume 91.9 fL (80-94); Mean Platelet Vol. 9.7 fl (6.2-12.0); Monocyte# 1.32 X10^3/uL; NRBC Flagged by Analyzer 0 % (0-5); Neutrophil # 9.83 X10^3/uL (2.7-7.7); Neutrophil % 74.6 % (47-70); Platelet Count 181 K/mm3 (150-450); RBC Distribution Width CV 14.2 % (11.6-14.6); Red Blood Count 3.33 M/mm3 (4.6-6.2); White Blood Count 13.2 K/mm3 (4.4-11.0)
[2019-08-23 06:24] LABS: Anion Gap 6 (5-15); BUN 35 mg/dL (7-18); BUN/Creat Ratio 25.7 RATIO (10-20); Calcium,Total 7.8 mg/dL (8.5-10.1); Chloride 102 mmol/L (98-107); Creatinine, Serum 1.36 mg/dL (0.70-1.30); EST Glomerular Filtration Rate 54 mL/min (>60); Est Glom Filt Rate - Afr Amer 65 mL/min (>60); Estimated Creatinine Clearance 46.91 ml/min; Glucose 99 mg/dL (74-106); Potassium 4.6 mmol/L (3.5-5.1); Sodium Level 135 mmol/L (136-145)
[2019-08-23 06:45] VITALS: O2SAT 94
--- NOTE | 2019-08-23 06:59 | PCM.PN.ORT ---
Subjective: The patient was sitting in bed upon examination. Patient denies any chest pain, shortness of breath, dizziness, lightheadedness, nausea or vomiting, or calf pain. Pain is controlled on medications. No adverse overnight events. Overall patient is doing well. He states he is only having Tylenol for pain control. Denies numbness and tingling. Patient will be discharged tomorrow to the transitional care unit at [facility]. Objective: Vital signs stable, afebrile Dressing is clean, dry, intact Ultra-sling fitting appropriately Sensation intact to axillary, radial, median, and ulnar distribution Motor intact to AIN, PIN, and ulnar nerve - Physical Exam Vitals/I&O's: Vital Signs Temp Pulse Resp BP Pulse Ox 98.6 F 67 16 126/52 H 96 08/23/19 02:55 08/23/19 02:55 08/23/19 02:55 08/23/19 02:55 08/23/19 02:55 Oxygen Flow Rate (L/min) 2 Oxygen Delivery Method CPAP Weight: 113 kg Body Mass Index (BMI) 34.7 Intake and Output for Last 24 Hours 08/21/19 08/22/19 08/23/19 23:59 23:59 23:59 Intake Total 2143.33 / 2143.33 2576.67 / 2576.67 200 / 200 Output Total 1750 / 1750 1400 / 1400 Balance 2143.33 / 2143.33 826.67 / 826.67 -1200 / -1200 General: Alert, Oriented x3, Cooperative, No apparent distress Laboratory Results 08/23/19 05:25: WBC 13.2 H, RBC 3.33 L, Hgb 10.1 L, Hct 30.6 L, MCV 91.9, MCH 30.3, MCHC 33.0, RDW Std Deviation 48.0 H, RDW Coeff of Cherry 14.2, Plt Count 181, MPV 9.7, Immature Gran % (Auto) 0.400, Neut % (Auto) 74.6 H, Lymph % (Auto) 13.7 L, [place] % (Auto) 10.0, Eos % (Auto) 1.1, Baso % (Auto) 0.2, Absolute Neuts (auto) 9.8 H, Absolute Lymphs (auto) 1.81, Nucleated RBC % 0 08/23/19 05:25: Sodium 135 L, Potassium 4.6, Chloride 102, Carbon Dioxide 27.0, Anion Gap 6, BUN 35 H, Creatinine 1.36 H, Estim Creat Clear Calc 46.91, Est GFR (MDRD) Af Amer 65, Est GFR (MDRD) Non-Af 54 L, BUN/Creatinine Ratio 25.7 H, Glucose 99, Calcium 7.8 L Current Medications Acetaminophen (Tylenol) 1,000 mg PO Q8 [facility] Last Admin: 08/23/19 05:33 Dose: 1,000 mg Documented by: Alprazolam (Xanax) 1 mg PO TID [facility] Last Admin: 08/23/19 05:33 Dose: 1 mg Documented by: Aspirin (Ecotrin) 81 mg PO DAILY@0800 [facility] Last Admin: 08/22/19 09:35 Dose: 81 mg Documented by: Atorvastatin Calcium (Lipitor) 10 mg PO QHS [facility] Last Admin: 08/22/19 21:14 Dose: 10 mg Documented by: Diltiazem HCl (Cardizem Cd) 240 mg PO QHS [facility] Last Admin: 08/22/19 21:11 Dose: 240 mg Documented by: Duloxetine HCl (Cymbalta) 60 mg PO DAILY [facility] Last Admin: 08/22/19 09:33 Dose: 60 mg Documented by: Enteral Nutritional Formula (Ensure Surgery) 237 ml PO TIDCM [facility] Last Admin: 08/22/19 15:42 Dose: 237 ml Documented by: Famotidine (Pepcid) 20 mg PO DAILY [facility] Last Admin: 08/22/19 09:31 Dose: 20 mg Documented by: Ferrous Sulfate (Ferrous Sulfate) 325 mg PO QHS [facility] Last Admin: 08/22/19 21:11 Dose: 325 mg Documented by: Furosemide (Lasix) 10 mg PO DAILY [facility] Last Admin: 08/22/19 09:34 Dose: 10 mg Documented by: Sodium Chloride () 250 mls @ 15 mls/hr IV .[id number] PRN PRN Reason: Saline Flush Ketorolac Tromethamine (Toradol) 15 mg IV Q6H PRN PRN PRN Reason: Pain Score 1-5/10 Levothyroxine Sodium (Synthroid) 125 mcg PO DAILY@0600 [facility] Last Admin: 08/23/19 05:32 Dose: 125 mcg Documented by: Losartan Potassium (Cozaar) 50 mg PO DAILY [facility] Last Admin: 08/22/19 09:35 Dose: 50 mg Documented by: Morphine Sulfate () 2 - 4 mg IV Q2H PRN PRN PRN Reason: Pain Score 6-10/10 Morphine Sulfate () 2 - 4 mg IV Q2H PRN PRN PRN Reason: Pain Score 6-10/10 Olanzapine (Zyprexa) 5 mg PO DAILY [facility] Last Admin: 08/22/19 09:43 Dose: 5 mg Documented by: Ondansetron HCl (Zofran) 4 mg IV Q8H PRN PRN PRN Reason: NAUSEA Oxycodone HCl (Oxyir) 2.5 mg PO Q4H PRN PRN PRN Reason: Pain Score 4-10/10 Promethazine HCl (Phenergan) 12.5 mg IM Q6H PRN PRN; Protocol PRN Reason: NAUSEA/VOMITING Senna/Docusate Sodium (Senokot-S, Loretta-Colace) 2 tablet PO BID [facility] Last Admin: 08/22/19 21:13 Dose: 2 tablet Documented by: Sodium Chloride () 10 - 40 ml IV UD PRN PRN Reason: SALINE FLUSH Last Admin: 08/22/19 09:37 Dose: 10 ml Documented by: Tamsulosin HCl (Flomax) 0.4 mg PO QHS [facility] Last Admin: 08/22/19 21:13 Dose: 0.4 mg Documented by: Tolterodine Tartrate (Detrol La) 2 mg PO DAILY [facility] Last Admin: 08/22/19 09:33 Dose: 2 mg Documented by: Medical Necessity - Tobacco Use Smoking Status: Never smoker Tobacco Use: Non-smoker Assessment/Plan 1. S/P right reverse total shoulder arthroplasty POD #2 2. Continue Pain Medications: Tylenol primarily for pain control with oxycodone for severe breakthrough pain. Patient is only required Tylenol for pain control at this time. 3. DVT Prophylaxis: Aspirin 4. PT/OT: Nonweightbearing right upper extremity and no range of motion of right shoulder at this time. Continue with UltraSling at all times except 3-4 times daily working on range of motion of the elbow, wrist, hand only. He can use pendulum exercises as well. He will begin outpatient formal physical therapy 2 weeks postoperatively 5. H & H: 10.1/30.6, asymptomatic 6. Reactive leukocytosis: Trending down currently 13.2, afebrile. Patient did receive Decadron intraoperatively. 7. Continue postoperative medical management per medicine: Patient does have underlying chronic kidney disease. Patient's creatinine has trended down and currently is 1.36 today. 8. Encouraged Incentive Spirometry 9. Disposition: Due to patient's comorbidities and significant neuropathy patient will most likely require additional care upon discharge. Patient currently requires significant use of his upper extremities for transfers and mobility. However since he has had the reverse total shoulder arthroplasty we do not want him putting any weight on the right upper extremity with transfers. Case management is involved and I would like physical therapy/Occupational Therapy to evaluate patient. Plan will be for discharge tomorrow to the transitional care unit at [facility].
[2019-08-23 07:45] VITALS: O2SAT 92
[2019-08-23 08:09] VITALS: BP 138/68; PULSE 72; RESP 22; TEMP 36.2; O2SAT 96
--- NOTE | 2019-08-23 08:39 | PCM.PROGNOTE ---
Subjective: Chief complaint: Follow-up after consultation for postoperative medical management. Patient seen and examined. No acute events overnight. Today, he denied any right shoulder pain. He denied any chest pain or shortness of breath. He denies fever or chills. Denied cough or sputum production. He denies any urinary symptoms. His vital signs are stable. - Physical Exam Vitals/I&O's: Vital Signs Temp Pulse Resp BP Pulse Ox 97.1 F L 72 22 H 138/68 H 96 08/23/19 08:09 08/23/19 08:09 08/23/19 08:09 08/23/19 08:09 08/23/19 08:09 Oxygen Flow Rate (L/min) 2 Oxygen Delivery Method Nasal Cannula Weight: 249 lb 1.957 oz Body Mass Index (BMI) 34.7 Intake and Output for Last 24 Hours 08/21/19 08/22/19 08/23/19 23:59 23:59 23:59 Intake Total 2143.33 / 2143.33 2576.67 / 2576.67 200 / 200 Output Total 1750 / 1750 1400 / 1400 Balance 2143.33 / 2143.33 826.67 / 826.67 -1200 / -1200 General: Alert, Oriented x3, Cooperative, No apparent distress HEENT: Atraumatic, PERRLA, EOMI, Normocephalic Oral: Moist Mucosa, No Gingival or Mucosal Lesions/ Ulcerations Neck: Supple, No JVD, Negative Carotid Bruits, Trachea Midline, Thyroid Normal Size and Texture Lungs: Clear to auscultation, No rhonchi, No wheeze, No rales, Diminished Cardiovascular: Regular rate, Regular Rhythm, Normal S1, Normal S2, PMI Normal Abdomen: Bowel Sounds Present, Soft, Non Tender, Non-Distended, No Hepato-splenomegaly, Obese Extremities: No clubbing, No cyanosis, No edema Skin: No rashes, No breakdown Lymphatic: No Cervical, Supraclavicular, or Inguinal Adenopathy Neurological: Cranial nerves II-XII grossly intact, Neuro grossly intact Psych/Mental Status: Normal Affect, Appropriate, Alert and oriented to time, place, person, mood and affect Laboratory Results 08/23/19 05:25: WBC 13.2 H, RBC 3.33 L, Hgb 10.1 L, Hct 30.6 L, MCV 91.9, MCH 30.3, MCHC 33.0, RDW Std Deviation 48.0 H, RDW Coeff of Cherry 14.2, Plt Count 181, MPV 9.7, Immature Gran % (Auto) 0.400, Neut % (Auto) 74.6 H, Lymph % (Auto) 13.7 L, [place] % (Auto) 10.0, Eos % (Auto) 1.1, Baso % (Auto) 0.2, Absolute Neuts (auto) 9.8 H, Absolute Lymphs (auto) 1.81, Nucleated RBC % 0 08/23/19 05:25: Sodium 135 L, Potassium 4.6, Chloride 102, Carbon Dioxide 27.0, Anion Gap 6, BUN 35 H, Creatinine 1.36 H, Estim Creat Clear Calc 46.91, Est GFR (MDRD) Af Amer 65, Est GFR (MDRD) Non-Af 54 L, BUN/Creatinine Ratio 25.7 H, Glucose 99, Calcium 7.8 L Current Medications Acetaminophen (Tylenol) 1,000 mg PO Q8 [facility] Last Admin: 08/23/19 05:33 Dose: 1,000 mg Documented by: Alprazolam (Xanax) 1 mg PO TID [facility] Last Admin: 08/23/19 05:33 Dose: 1 mg Documented by: Aspirin (Ecotrin) 81 mg PO DAILY@0800 [facility] Last Admin: 08/22/19 09:35 Dose: 81 mg Documented by: Atorvastatin Calcium (Lipitor) 10 mg PO QHS [facility] Last Admin: 08/22/19 21:14 Dose: 10 mg Documented by: Diltiazem HCl (Cardizem Cd) 240 mg PO QHS [facility] Last Admin: 08/22/19 21:11 Dose: 240 mg Documented by: Duloxetine HCl (Cymbalta) 60 mg PO DAILY [facility] Last Admin: 08/22/19 09:33 Dose: 60 mg Documented by: Enteral Nutritional Formula (Ensure Surgery) 237 ml PO TIDCM [facility] Last Admin: 08/22/19 15:42 Dose: 237 ml Documented by: Famotidine (Pepcid) 20 mg PO DAILY [facility] Last Admin: 08/22/19 09:31 Dose: 20 mg Documented by: Ferrous Sulfate (Ferrous Sulfate) 325 mg PO QHS [facility] Last Admin: 08/22/19 21:11 Dose: 325 mg Documented by: Furosemide (Lasix) 10 mg PO DAILY [facility] Last Admin: 08/22/19 09:34 Dose: 10 mg Documented by: Sodium Chloride () 250 mls @ 15 mls/hr IV .[id number] PRN PRN Reason: Saline Flush Ketorolac Tromethamine (Toradol) 15 mg IV Q6H PRN PRN PRN Reason: Pain Score 1-5/10 Levothyroxine Sodium (Synthroid) 125 mcg PO DAILY@0600 [facility] Last Admin: 08/23/19 05:32 Dose: 125 mcg Documented by: Losartan Potassium (Cozaar) 50 mg PO DAILY [facility] Last Admin: 08/22/19 09:35 Dose: 50 mg Documented by: Morphine Sulfate () 2 - 4 mg IV Q2H PRN PRN PRN Reason: Pain Score 6-10/10 Morphine Sulfate () 2 - 4 mg IV Q2H PRN PRN PRN Reason: Pain Score 6-10/10 Olanzapine (Zyprexa) 5 mg PO DAILY [facility] Last Admin: 08/22/19 09:43 Dose: 5 mg Documented by: Ondansetron HCl (Zofran) 4 mg IV Q8H PRN PRN PRN Reason: NAUSEA Oxycodone HCl (Oxyir) 2.5 mg PO Q4H PRN PRN PRN Reason: Pain Score 4-10/10 Promethazine HCl (Phenergan) 12.5 mg IM Q6H PRN PRN; Protocol PRN Reason: NAUSEA/VOMITING Senna/Docusate Sodium (Senokot-S, Loretta-Colace) 2 tablet PO BID [facility] Last Admin: 08/22/19 21:13 Dose: 2 tablet Documented by: Sodium Chloride () 10 - 40 ml IV UD PRN PRN Reason: SALINE FLUSH Last Admin: 08/22/19 09:37 Dose: 10 ml Documented by: Tamsulosin HCl (Flomax) 0.4 mg PO QHS [facility] Last Admin: 08/22/19 21:13 Dose: 0.4 mg Documented by: Tolterodine Tartrate (Detrol La) 2 mg PO DAILY [facility] Last Admin: 08/22/19 09:33 Dose: 2 mg Documented by: Medical Necessity - Tobacco Use Smoking Status: Never smoker Tobacco Use: Non-smoker Assessment/Plan This is a 79 years old male patient admitted for elective right reverse total shoulder replacement for right shoulder cuff tear/arthropathy and I am seeing this patient for follow-up after consultation for postoperative medical management. #1 status post reverse right total shoulder replacement: Postoperative day 2. This was done for right shoulder cuff tear/arthropathy. Pain is well controlled. He is on Tylenol PRN, IV morphine PRN as well as OxyIR PRN for pain. He has been afebrile, other vital signs are stable. WBC is trending down. Orthopedic surgery on the case. Plan to DC to TCU tomorrow morning. #2 stage III chronic kidney disease: Unknown baseline creatinine. Patient is aware that he has chronic kidney disease. Today's BUN is 35, creatinine 1.26, stable at baseline. #3 hypertension: Blood pressure stable, continue Cardizem and losartan. #4 benign prostatic hypertrophy: Stable, continue Flomax. #5 hypothyroidism: Continue levothyroxine. #6 obstructive sleep apnea: Continue CPAP at night with the same home settings. #7 anxiety/depression: Stable, continue Xanax, Cymbalta and Zyprexa. #8 hyperlipidemia: Continue statins. #9 chronic anemia: Stable hemoglobin and hematocrit, continue iron supplement. #10 DVT prophylaxis: SCDs, aspirin. This note was generated with Redicam dictation software. It may contain incorrect words, spelling, and punctuation that were not noted in checking the note before signing. Code Visit Inpatient E&M: 18263 Subs Hosp L2
[2019-08-23] MEDS: Famotidine 20 MG Tablet PO (09:25)
[2019-08-23] MEDS: Furosemide 20 MG Tablet 10 MG PO (09:25)
[2019-08-23] MEDS: Tolterodine Tartrate 2 MG CAP.SA PO (09:25)
[2019-08-23] MEDS: OLANZapine 2.5 MG Tablet 5 MG PO (09:25)
[2019-08-23] MEDS: DULoxetine Hcl 60 MG Capsule PO (09:25)
[2019-08-23] MEDS: Losartan Potassium 50 MG Tablet PO (09:25)
[2019-08-23] MEDS: Aspirin E.C. 81 MG Tablet PO (09:26)
[2019-08-23] MEDS: Senna/Docusate Sodium 1 Tablet 2 TABLET PO ×2 (09:26→21:34)
--- NOTE | 2019-08-23 11:32 | CASEMGMT ---
Social Work Note LIZZ received call from Francie in TCU stating pre-cert has been obtained for pt and pt can discharge to TCU tomorrow. LIZZ updated pt and pt's Diana on acceptance to TCU and approval and plan for TCU tomorrow. Pt states understanding. Green sheet on chart. 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
[2019-08-23] MEDS: Ensure Surgery 237 ML LIQUID PO (11:54)
[2019-08-23 13:58] VITALS: BP 124/54; PULSE 80; RESP 22; TEMP 36.6; O2SAT 96
[2019-08-23 19:57] VITALS: BP 133/58; PULSE 92; RESP 20; TEMP 36.8; O2SAT 95
[2019-08-23] MEDS: Ferrous Sulfate 325 MG Tablet PO (21:34)
[2019-08-23] MEDS: dilTIAZem CD 240 MG Capsule PO (21:35)
[2019-08-23] MEDS: Tamsulosin HCl 0.4 MG Capsule PO (21:35)
[2019-08-23] MEDS: Atorvastatin Calcium 10 MG Tablet PO (21:35)
[2019-08-24 01:58] VITALS: BP 151/72; PULSE 93; RESP 20; TEMP 37.1; O2SAT 95
[2019-08-24] MEDS: ALPRAZolam 0.5 MG Tablet 1 MG PO ×2 (06:01→14:19)
[2019-08-24] MEDS: Levothyroxine 125 MCG Tablet PO (06:02)
[2019-08-24] MEDS: Acetaminophen 500 MG Tablet 1000 MG PO ×2 (06:02→14:19)
--- NOTE | 2019-08-24 07:18 | PCM.PN.ORT ---
Subjective: Patient is doing well. No acute events overnight. Patient has been stable using some nasal cannula oxygen on an as-needed basis. Pain is controlled with Tylenol at this time. Still requiring significant assistance with therapy. Will benefit from intermediate. - Physical Exam Vitals/I&O's: Vital Signs Temp Pulse Resp BP Pulse Ox 98.8 F 93 20 H 151/72 H 95 08/24/19 01:58 08/24/19 01:58 08/24/19 01:58 08/24/19 01:58 08/24/19 01:58 Oxygen Flow Rate (L/min) 2 Oxygen Delivery Method CPAP Weight: 249 lb 1.957 oz Body Mass Index (BMI) 34.7 Intake and Output for Last 24 Hours 08/22/19 08/23/19 08/24/19 23:59 23:59 23:59 Intake Total 2576.67 / 2576.67 200 / 600 700 / 700 Output Total 1750 / 1750 1400 / 2340 1440 / 1440 Balance 826.67 / 826.67 -1200 / -1740 -740 / -740 General: Alert, Oriented x3, Cooperative Extremities: - - Right upper extremity: Dressings clean dry and intact. Sensations intact light touch axillary/R/M/U. Motor is intact distally R/M/U. Current Medications Acetaminophen (Tylenol) 1,000 mg PO Q8 [facility] Last Admin: 08/24/19 06:02 Dose: 1,000 mg Documented by: Alprazolam (Xanax) 1 mg PO TID [facility] Last Admin: 08/24/19 06:01 Dose: 1 mg Documented by: Aspirin (Ecotrin) 81 mg PO DAILY@0800 [facility] Last Admin: 08/23/19 09:26 Dose: 81 mg Documented by: Atorvastatin Calcium (Lipitor) 10 mg PO QHS [facility] Last Admin: 08/23/19 21:35 Dose: 10 mg Documented by: Diltiazem HCl (Cardizem Cd) 240 mg PO QHS [facility] Last Admin: 08/23/19 21:35 Dose: 240 mg Documented by: Duloxetine HCl (Cymbalta) 60 mg PO DAILY [facility] Last Admin: 08/23/19 09:25 Dose: 60 mg Documented by: Enteral Nutritional Formula (Ensure Surgery) 237 ml PO TIDCM [facility] Last Admin: 08/23/19 17:36 Dose: Not Given Documented by: Famotidine (Pepcid) 20 mg PO DAILY [facility] Last Admin: 08/23/19 09:25 Dose: 20 mg Documented by: Ferrous Sulfate (Ferrous Sulfate) 325 mg PO QHS [facility] Last Admin: 08/23/19 21:34 Dose: 325 mg Documented by: Furosemide (Lasix) 10 mg PO DAILY [facility] Last Admin: 08/23/19 09:25 Dose: 10 mg Documented by: Sodium Chloride () 250 mls @ 15 mls/hr IV .[id number] PRN PRN Reason: Saline Flush Ketorolac Tromethamine (Toradol) 15 mg IV Q6H PRN PRN PRN Reason: Pain Score 1-5/10 Levothyroxine Sodium (Synthroid) 125 mcg PO DAILY@0600 [facility] Last Admin: 08/24/19 06:02 Dose: 125 mcg Documented by: Losartan Potassium (Cozaar) 50 mg PO DAILY [facility] Last Admin: 08/23/19 09:25 Dose: 50 mg Documented by: Morphine Sulfate () 2 - 4 mg IV Q2H PRN PRN PRN Reason: Pain Score 6-10/10 Morphine Sulfate () 2 - 4 mg IV Q2H PRN PRN PRN Reason: Pain Score 6-10/10 Olanzapine (Zyprexa) 5 mg PO DAILY [facility] Last Admin: 08/23/19 09:25 Dose: 5 mg Documented by: Ondansetron HCl (Zofran) 4 mg IV Q8H PRN PRN PRN Reason: NAUSEA Oxycodone HCl (Oxyir) 2.5 mg PO Q4H PRN PRN PRN Reason: Pain Score 4-10/10 Promethazine HCl (Phenergan) 12.5 mg IM Q6H PRN PRN; Protocol PRN Reason: NAUSEA/VOMITING Senna/Docusate Sodium (Senokot-S, Loretta-Colace) 2 tablet PO BID [facility] Last Admin: 08/23/19 21:34 Dose: 2 tablet Documented by: Sodium Chloride () 10 - 40 ml IV UD PRN PRN Reason: SALINE FLUSH Last Admin: 08/22/19 09:37 Dose: 10 ml Documented by: Tamsulosin HCl (Flomax) 0.4 mg PO QHS [facility] Last Admin: 08/23/19 21:35 Dose: 0.4 mg Documented by: Tolterodine Tartrate (Detrol La) 2 mg PO DAILY [facility] Last Admin: 08/23/19 09:25 Dose: 2 mg Documented by: Medical Necessity - Tobacco Use Smoking Status: Never smoker Tobacco Use: Non-smoker Assessment/Plan 1. S/P right reverse total shoulder arthroplasty POD #3 2. Continue Pain Medications: Tylenol primarily for pain control with oxycodone for severe breakthrough pain. Patient is only required Tylenol for pain control at this time. 3. DVT Prophylaxis: Aspirin 4. PT/OT: Nonweightbearing right upper extremity and no range of motion of right shoulder at this time. Continue with UltraSling at all times except 3-4 times daily working on range of motion of the elbow, wrist, hand only. He can use pendulum exercises as well. He will begin outpatient formal physical therapy 2 weeks postoperatively 5. H & H: stable, asymptomatic 6. Reactive leukocytosis: Clinically insignificant at this time 7. Continue postoperative medical management per medicine: Patient has been stable and is ready for discharge 8. Encouraged Incentive Spirometry 9. Disposition: Due to patient's comorbidities and significant neuropathy patient will most likely require additional care upon discharge. Patient currently requires significant use of his upper extremities for transfers and mobility. However since he has had the reverse total shoulder arthroplasty and is nonweightbearing patient requires significant assistance with transfers. She will require intense physical therapy and Occupational Therapy for mobilization upon discharge from the hospital. Plan will be for discharged today to the transitional care unit at [facility]. [facility] Office:
--- NOTE | 2019-08-24 07:29 | DCINST_ITS ---
Discharge Diet: No Restrictions Discharge Activity: May Not Drive May shower in (days): 1 - Dressing must be intact the skin. Turn dressing away from water Ice area for (Minutes): 20 - Every 1-2 hours while awake Weight Bearing Status: No weight bearing - Right upper extremity Call your doctor if your incision/area has: Continuous Slow Oozing, Sudden Increased Bleeding, Increased Pain/ Swelling, Increased Redness, Foul Smelling Discharge Call your doctor if you observe: Fever of 101 or Higher, Coldness, Increased Pain, Numbness or Tingling, Change in Color Remove Dressing in (days):: 2 - Okay to remove on August 26, 2019. Do not use any tape on skin. Additional Instructions: Follow orthopedic postop instructions Physical therapy/Occupational Therapy: Continue with UltraSling at all times. Okay to come out 3-4 times daily working on elbow, wrist, hand range of motion only. No shoulder range of motion. Okay to work on pendulum exercises. P atient will begin outpatient formal physical therapy 2 weeks postoperatively. Allergies/Adverse Reactions: Allergies tramadol Allergy (Intermediate, Verified 08/21/19 09:21) Unknown Antihistamines - Alkylamine Allergy (Verified 08/21/19 09:21) kidney failure Penicillins Allergy (Verified 08/21/19 09:21) Unknown Sulfa (Sulfonamide Antibiotics) Allergy (Verified 08/21/19 09:21) Unknown Medications to take at Discharge ALPRAZolam [Xanax] 1 mg PO TID 08/05/19 Diltiazem CD [Cardizem CD] 240 mg PO QHS 08/05/19 Duloxetine HCl 60 mg PO DAILY 08/05/19 Ferrous Sulfate 325 mg PO QHS 08/05/19 Levothyroxine Sodium [Synthroid] 125 mcg PO DAILY 08/05/19 Losartan Potassium [Cozaar] 50 mg PO DAILY 08/05/19 Multivit-Min/FA/Lycopen/Lutein [Centrum Silver Men Tablet] 1 ea PO DAILY 08/05/19 Olanzapine [Zyprexa] 5 mg PO DAILY 08/05/19 Simvastatin [Zocor] 20 mg PO DAILY 08/05/19 Tamsulosin HCl [Flomax] 0.4 mg PO QHS 08/05/19 Tolterodine Tartrate [Detrol LA] 2 mg PO DAILY 08/05/19 Vit C/E/Zn/Coppr/Lutein/Zeaxan [Preservision Areds 2 Softgel] 1 ea PO BID 08/05/19 furosemide 20 mg tablet 10 mg PO DAILY tab 08/06/19 vitamin B complex tablet 1 tab PO DAILY 08/06/19 Acetaminophen [Tylenol] 1,000 mg PO Q8 14 Days tablet 08/24/19 Aspirin E.C. [Ecotrin] 81 mg PO DAILY@0800 14 Days tablet 08/24/19 Oxycodone [Oxyir] 2.5 mg PO Q4H PRN PRN 7 Days #10 tab 08/24/19 Senna/Docusate Sodium [Senokot-S] 2 tablet PO BID 2 Days tablet 08/24/19 The following prescriptions were given: Oxycodone [Oxyir] 2.5 mg PO Q4H PRN PRN 7 Days #10 tab PRN Reason: Pain Score 4-10/10 Prescription Printed Primary Care Physician: Niecy Moe NP-C [Primary Care Provider] - Test Results: Test results from this visit will be discussed in further detail at your follow- up appointment, if applicable. Please Follow Up With: Segundo Garduno PA-C When: 09/04/19 @ 10:00 am Please Follow Up With: [facility] When: 09/04/19 @ 9:00 am
--- NOTE | 2019-08-24 07:32 | PCM.DC.SUM ---
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 Action required.) Stage III chronic kidney disease (Chronic) Anxiety and depression (Chronic) Hyperlipidemia (Chronic) Benign prostatic hyperplasia (Chronic) Hypothyroidism (Chronic) JONAS (obstructive sleep apnea) (Chronic) Essential hypertension (Chronic) Hospital Course and Treatment Summary of Care Provided: Patient is a 79-year-old male who is been having ongoing pain in the right dominant shoulder for the past 2 years. Patient has history of previous rotator cuff repair 10 years ago. Patient continued to have difficulty with activities of daily living. Patient is wheelchair-bound and is dependent upon his upper extremity for transfers. He has had significant limitations due to the right shoulder pain. X-rays revealed severe glenohumeral osteoarthritis. After failing conservative measures, the patient opted to proceed with a right reverse total shoulder arthroplasty. The patient underwent the above-stated procedure on August 21, 2019. Patient did receive perioperative antibiotics. Intraoperatively was uneventful. For details please see dictated operative note. The patient was placed in thigh-high teds, bilateral SCDs, remained stable in recovery. Patient was admitted to the 3rd floor at [facility]. The patient's pain was managed with the use of IV and p.o. pain medications. Patient is only required Tylenol for pain control. He is on aspirin for DVT prophylaxis. Patient participated in physical therapy. Patient was discharged on postoperative day #[address] [facility] with the transitional care unit. Patient was given medications stated below. Patient will follow up with [facility] per postop instructions for reassessment. - Physical Exam Vitals/I&O's: Vital Signs Temp Pulse Resp BP Pulse Ox 98.8 F 93 20 H 151/72 H 95 08/24/19 01:58 08/24/19 01:58 08/24/19 01:58 08/24/19 01:58 08/24/19 01:58 Oxygen Flow Rate (L/min) 2 Oxygen Delivery Method CPAP Weight: 113 kg Body Mass Index (BMI) 34.7 Intake and Output for Last 24 Hours 08/22/19 08/23/19 08/24/19 23:59 23:59 23:59 Intake Total 2576.67 / 2576.67 200 / 600 700 / 700 Output Total 1750 / 1750 1400 / 2340 1440 / 1440 Balance 826.67 / 826.67 -1200 / -1740 -740 / -740 Current Medications Acetaminophen (Tylenol) 1,000 mg PO Q8 [facility] Last Admin: 08/24/19 06:02 Dose: 1,000 mg Documented by: Alprazolam (Xanax) 1 mg PO TID [facility] Last Admin: 08/24/19 06:01 Dose: 1 mg Documented by: Aspirin (Ecotrin) 81 mg PO DAILY@0800 [facility] Last Admin: 08/23/19 09:26 Dose: 81 mg Documented by: Atorvastatin Calcium (Lipitor) 10 mg PO QHS [facility] Last Admin: 08/23/19 21:35 Dose: 10 mg Documented by: Diltiazem HCl (Cardizem Cd) 240 mg PO QHS [facility] Last Admin: 08/23/19 21:35 Dose: 240 mg Documented by: Duloxetine HCl (Cymbalta) 60 mg PO DAILY [facility] Last Admin: 08/23/19 09:25 Dose: 60 mg Documented by: Enteral Nutritional Formula (Ensure Surgery) 237 ml PO TIDCM [facility] Last Admin: 08/23/19 17:36 Dose: Not Given Documented by: Famotidine (Pepcid) 20 mg PO DAILY [facility] Last Admin: 08/23/19 09:25 Dose: 20 mg Documented by: Ferrous Sulfate (Ferrous Sulfate) 325 mg PO QHS [facility] Last Admin: 08/23/19 21:34 Dose: 325 mg Documented by: Furosemide (Lasix) 10 mg PO DAILY [facility] Last Admin: 08/23/19 09:25 Dose: 10 mg Documented by: Sodium Chloride () 250 mls @ 15 mls/hr IV .[id number] PRN PRN Reason: Saline Flush Ketorolac Tromethamine (Toradol) 15 mg IV Q6H PRN PRN PRN Reason: Pain Score 1-5/10 Levothyroxine Sodium (Synthroid) 125 mcg PO DAILY@0600 [facility] Last Admin: 08/24/19 06:02 Dose: 125 mcg Documented by: Losartan Potassium (Cozaar) 50 mg PO DAILY [facility] Last Admin: 08/23/19 09:25 Dose: 50 mg Documented by: Morphine Sulfate () 2 - 4 mg IV Q2H PRN PRN PRN Reason: Pain Score 6-10/10 Morphine Sulfate () 2 - 4 mg IV Q2H PRN PRN PRN Reason: Pain Score 6-10/10 Olanzapine (Zyprexa) 5 mg PO DAILY [facility] Last Admin: 08/23/19 09:25 Dose: 5 mg Documented by: Ondansetron HCl (Zofran) 4 mg IV Q8H PRN PRN PRN Reason: NAUSEA Oxycodone HCl (Oxyir) 2.5 mg PO Q4H PRN PRN PRN Reason: Pain Score 4-10/10 Promethazine HCl (Phenergan) 12.5 mg IM Q6H PRN PRN; Protocol PRN Reason: NAUSEA/VOMITING Senna/Docusate Sodium (Senokot-S, Loretta-Colace) 2 tablet PO BID [facility] Last Admin: 08/23/19 21:34 Dose: 2 tablet Documented by: Sodium Chloride () 10 - 40 ml IV UD PRN PRN Reason: SALINE FLUSH Last Admin: 08/22/19 09:37 Dose: 10 ml Documented by: Tamsulosin HCl (Flomax) 0.4 mg PO QHS [facility] Last Admin: 08/23/19 21:35 Dose: 0.4 mg Documented by: Tolterodine Tartrate (Detrol La) 2 mg PO DAILY [facility] Last Admin: 08/23/19 09:25 Dose: 2 mg Documented by: Discharge Diet: No Restrictions Discharge Activity: May Not Drive May shower in (days): 1 - Dressing must be intact the skin. Turn dressing away from water Ice area for (Minutes): 20 - Every 1-2 hours while awake Weight Bearing Status: No weight bearing - Right upper extremity Call your doctor if your incision/area has: Continuous Slow Oozing, Sudden Increased Bleeding, Increased Pain/ Swelling, Increased Redness, Foul Smelling Discharge Call your doctor if you observe: Fever of 101 or Higher, Coldness, Increased Pain, Numbness or Tingling, Change in Color Remove Dressing in (days):: 2 - Okay to remove on August 26, 2019. Do not use any tape on skin. Home Medications: Medications to take at Discharge ALPRAZolam [Xanax] 1 mg PO TID 08/05/19 Diltiazem CD [Cardizem CD] 240 mg PO QHS 08/05/19 Duloxetine HCl 60 mg PO DAILY 08/05/19 Ferrous Sulfate 325 mg PO QHS 08/05/19 Levothyroxine Sodium [Synthroid] 125 mcg PO DAILY 08/05/19 Losartan Potassium [Cozaar] 50 mg PO DAILY 08/05/19 Multivit-Min/FA/Lycopen/Lutein [Centrum Silver Men Tablet] 1 ea PO DAILY 08/05/19 Olanzapine [Zyprexa] 5 mg PO DAILY 08/05/19 Simvastatin [Zocor] 20 mg PO DAILY 08/05/19 Tamsulosin HCl [Flomax] 0.4 mg PO QHS 08/05/19 Tolterodine Tartrate [Detrol LA] 2 mg PO DAILY 08/05/19 Vit C/E/Zn/Coppr/Lutein/Zeaxan [Preservision Areds 2 Softgel] 1 ea PO BID 08/05/19 furosemide 20 mg tablet 10 mg PO DAILY tab 08/06/19 vitamin B complex tablet 1 tab PO DAILY 08/06/19 Acetaminophen [Tylenol] 1,000 mg PO Q8 14 Days tablet 08/24/19 Aspirin E.C. [Ecotrin] 81 mg PO DAILY@0800 14 Days tablet 08/24/19 Oxycodone [Oxyir] 2.5 mg PO Q4H PRN PRN 7 Days #10 tab 08/24/19 Senna/Docusate Sodium [Senokot-S] 2 tablet PO BID 2 Days tablet 08/24/19 Following Prescrptions Were Given to Patient: Oxycodone [Oxyir] 2.5 mg PO Q4H PRN PRN 7 Days #10 tab PRN Reason: Pain Score 4-10/10 Prescription Printed Primary Care Physician: Niecy Moe NP-C [Primary Care Provider] - Please Follow Up With: Segundo Garduno PA-C When: 09/04/19 @ 10:00 am Please Follow Up With: [facility] When: 09/04/19 @ 9:00 am Additional Instructions: Follow orthopedic postop instructions Physical therapy/Occupational Therapy: Continue with UltraSling at all times. Okay to come out 3-4 times daily working on elbow, wrist, hand range of motion only. No shoulder range of motion. Okay to work on pendulum exercises. Patient will begin outpatient formal physical therapy 2 weeks postoperatively. Medical Necessity - Tobacco Use Smoking Status: Never smoker Tobacco Use: Non-smoker Meaningful Use Info Meaningful Use Diagnoses (Choose all that apply): None applicable
[2019-08-24 08:25] VITALS: BP 136/59; PULSE 82; RESP 16; TEMP 36.9; O2SAT 97
[2019-08-24 08:30] VITALS: O2SAT 97
[2019-08-24] MEDS: Furosemide 20 MG Tablet 10 MG PO (08:33)
[2019-08-24] MEDS: Senna/Docusate Sodium 1 Tablet 2 TABLET PO (08:33)
[2019-08-24] MEDS: Aspirin E.C. 81 MG Tablet PO (08:33)
[2019-08-24] MEDS: Losartan Potassium 50 MG Tablet PO (08:34)
[2019-08-24] MEDS: DULoxetine Hcl 60 MG Capsule PO (08:34)
[2019-08-24] MEDS: OLANZapine 2.5 MG Tablet 5 MG PO (08:34)
[2019-08-24] MEDS: Tolterodine Tartrate 2 MG CAP.SA PO (08:35)
[2019-08-24] MEDS: Famotidine 20 MG Tablet PO (08:35)
[2019-08-24] MEDS: Ensure Surgery 237 ML LIQUID PO (08:40)
--- NOTE | 2019-08-24 09:01 | PCM.PROGNOTE ---
Subjective: Chief complaint: Follow-up after consultation for postoperative medical management. Patient seen and examined. No acute events overnight. He is asymptomatic, no significant complaints. His vital signs are stable. - Physical Exam Vitals/I&O's: Vital Signs Temp Pulse Resp BP Pulse Ox 98.8 F 93 20 H 151/72 H 95 08/24/19 01:58 08/24/19 01:58 08/24/19 01:58 08/24/19 01:58 08/24/19 01:58 Oxygen Flow Rate (L/min) 2 Oxygen Delivery Method CPAP Weight: 249 lb 1.957 oz Body Mass Index (BMI) 34.7 Intake and Output for Last 24 Hours 08/22/19 08/23/19 08/24/19 23:59 23:59 23:59 Intake Total 2576.67 / 2576.67 200 / 600 700 / 700 Output Total 1750 / 1750 1400 / 2340 1440 / 1440 Balance 826.67 / 826.67 -1200 / -1740 -740 / -740 General: Alert, Oriented x3, Cooperative, No apparent distress HEENT: Atraumatic, PERRLA, EOMI, Normocephalic Oral: Moist Mucosa, No Gingival or Mucosal Lesions/ Ulcerations Neck: Supple, No JVD, Negative Carotid Bruits, Trachea Midline, Thyroid Normal Size and Texture Lungs: Clear to auscultation, No rhonchi, No wheeze, No rales, Diminished Cardiovascular: Regular rate, Regular Rhythm, Normal S1, Normal S2, PMI Normal Abdomen: Bowel Sounds Present, Soft, Non Tender, Non-Distended, No Hepato-splenomegaly, Obese Extremities: No clubbing, No cyanosis, No edema Skin: No rashes, No breakdown Lymphatic: No Cervical, Supraclavicular, or Inguinal Adenopathy Neurological: Cranial nerves II-XII grossly intact, Neuro grossly intact Psych/Mental Status: Normal Affect, Appropriate Current Medications Acetaminophen (Tylenol) 1,000 mg PO Q8 [facility] Last Admin: 08/24/19 06:02 Dose: 1,000 mg Documented by: Alprazolam (Xanax) 1 mg PO TID [facility] Last Admin: 08/24/19 06:01 Dose: 1 mg Documented by: Aspirin (Ecotrin) 81 mg PO DAILY@0800 [facility] Last Admin: 08/24/19 08:33 Dose: 81 mg Documented by: Atorvastatin Calcium (Lipitor) 10 mg PO QHS [facility] Last Admin: 08/23/19 21:35 Dose: 10 mg Documented by: Diltiazem HCl (Cardizem Cd) 240 mg PO QHS [facility] Last Admin: 08/23/19 21:35 Dose: 240 mg Documented by: Duloxetine HCl (Cymbalta) 60 mg PO DAILY [facility] Last Admin: 08/24/19 08:34 Dose: 60 mg Documented by: Enteral Nutritional Formula (Ensure Surgery) 237 ml PO TIDCM [facility] Last Admin: 08/24/19 08:40 Dose: 237 ml Documented by: Famotidine (Pepcid) 20 mg PO DAILY [facility] Last Admin: 08/24/19 08:35 Dose: 20 mg Documented by: Ferrous Sulfate (Ferrous Sulfate) 325 mg PO QHS [facility] Last Admin: 08/23/19 21:34 Dose: 325 mg Documented by: Furosemide (Lasix) 10 mg PO DAILY [facility] Last Admin: 08/24/19 08:33 Dose: 10 mg Documented by: Sodium Chloride () 250 mls @ 15 mls/hr IV .[id number] PRN PRN Reason: Saline Flush Ketorolac Tromethamine (Toradol) 15 mg IV Q6H PRN PRN PRN Reason: Pain Score 1-5/10 Levothyroxine Sodium (Synthroid) 125 mcg PO DAILY@0600 [facility] Last Admin: 08/24/19 06:02 Dose: 125 mcg Documented by: Losartan Potassium (Cozaar) 50 mg PO DAILY [facility] Last Admin: 08/24/19 08:34 Dose: 50 mg Documented by: Morphine Sulfate () 2 - 4 mg IV Q2H PRN PRN PRN Reason: Pain Score 6-10/10 Morphine Sulfate () 2 - 4 mg IV Q2H PRN PRN PRN Reason: Pain Score 6-10/10 Olanzapine (Zyprexa) 5 mg PO DAILY [facility] Last Admin: 08/24/19 08:34 Dose: 5 mg Documented by: Ondansetron HCl (Zofran) 4 mg IV Q8H PRN PRN PRN Reason: NAUSEA Oxycodone HCl (Oxyir) 2.5 mg PO Q4H PRN PRN PRN Reason: Pain Score 4-10/10 Promethazine HCl (Phenergan) 12.5 mg IM Q6H PRN PRN; Protocol PRN Reason: NAUSEA/VOMITING Senna/Docusate Sodium (Senokot-S, Loretta-Colace) 2 tablet PO BID [facility] Last Admin: 08/24/19 08:33 Dose: 2 tablet Documented by: Sodium Chloride () 10 - 40 ml IV UD PRN PRN Reason: SALINE FLUSH Last Admin: 08/22/19 09:37 Dose: 10 ml Documented by: Tamsulosin HCl (Flomax) 0.4 mg PO QHS [facility] Last Admin: 08/23/19 21:35 Dose: 0.4 mg Documented by: Tolterodine Tartrate (Detrol La) 2 mg PO DAILY [facility] Last Admin: 08/24/19 08:35 Dose: 2 mg Documented by: Medical Necessity - Tobacco Use Smoking Status: Never smoker Tobacco Use: Non-smoker Assessment/Plan This is a 79 years old male patient admitted for elective right reverse total shoulder replacement for right shoulder cuff tear/arthropathy and I am seeing this patient for follow-up after consultation for postoperative medical management. #1 status post reverse right total shoulder replacement: Postoperative day 3. Patient remained stable, no complaints. This was done for right shoulder cuff tear/arthropathy. He is not requiring significant amount of narcotics, Tylenol is sufficient for pain control. He remained afebrile, other vital signs are stable. From medical standpoint, patient is stable to be discharged to TCU, no change to his previous home medications. #2 stage III chronic kidney disease: Unknown baseline creatinine. Patient is aware that he has chronic kidney disease. Yesterday's BUN is 35, creatinine 1.26, stable at baseline. #3 hypertension: Blood pressure stable, continue Cardizem and losartan. #4 benign prostatic hypertrophy: Stable, continue Flomax. #5 hypothyroidism: Continue levothyroxine. #6 obstructive sleep apnea: Continue CPAP at night with the same home settings. #7 anxiety/depression: Stable, continue Xanax, Cymbalta and Zyprexa. #8 hyperlipidemia: Continue statins. #9 chronic anemia: Stable hemoglobin and hematocrit, continue iron supplement. #10 DVT prophylaxis: SCDs, aspirin. This note was generated with [employer] software. It may contain incorrect words, spelling, and punctuation that were not noted in checking the note before signing. Code Visit Inpatient E&M: 52536 Subs Hosp L2
== END 2019-08-24 14:55 | disposition skilled nursing facility (03) | DRG 483 ==
LOC: ACINP 08:42 → MS3 13:03
PROVIDERS: Hospitalist; Admitting Provider Specialist; Family Provider Nurse Practitioner Primary Care; PCP Nurse Practitioner Primary Care; Referring Provider Nurse Practitioner Primary Care; Visit Provider Internal Medicine
PROC: 0RRJ00Z Replacement of Right Shoulder Joint with Reverse Ball and Socket Synthetic Substitute, Open Approach (ICD-10-PCS; CPT 23472; principal; 2019-08-21 11:00)
DX: M19.011 Primary osteoarthritis, right shoulder (principal); M75.101 Unspecified rotator cuff tear or rupture of right shoulder, not specified as traumatic; D50.9 Iron deficiency anemia, unspecified; E78.00 Pure hypercholesterolemia, unspecified; F41.9 Anxiety disorder, unspecified; F32.9 Major depressive disorder, single episode, unspecified; Z79.899 Other long term (current) drug therapy; Z99.81 Dependence on supplemental oxygen; G57.90 Unspecified mononeuropathy of unspecified lower limb; G47.33 Obstructive sleep apnea (adult) (pediatric); E03.9 Hypothyroidism, unspecified; N40.0 Benign prostatic hyperplasia without lower urinary tract symptoms; E78.5 Hyperlipidemia, unspecified; D72.828 Other elevated white blood cell count; R79.89 Other specified abnormal findings of blood chemistry; N18.3 Chronic kidney disease, stage 3 (moderate); I12.9 Hypertensive chronic kidney disease with stage 1 through stage 4 chronic kidney disease, or unspecified chronic kidney disease; Z99.3 Dependence on wheelchair; Z96.643 Presence of artificial hip joint, bilateral; Z79.1 Long term (current) use of non-steroidal anti-inflammatories (NSAID)
CPT/HCPCS: 36415; 73020; 73030; 80048; 82962; 85025; 85027; 87081; 93005; 97110; 97116; 97162; 97166; 97530; 97535; 99251; C1776; J7040; J7120; A4216; G0463; J2405

== ENCOUNTER 2019-08-24 15:00 | Inpatient (IN) | payer MEDICARE, SELFPAY ==
[2019-08-21 09:23] VITALS: BMI 34.7
[2019-08-24 15:36] VITALS: BP 123/63; PULSE 89; RESP 20; TEMP 37; O2SAT 93; BMI 35.0
--- NOTE | 2019-08-24 15:51 | NURSING ---
PT ARRIVED BY RECLINER FROM M/S AT 1500.
[2019-08-24 16:00] VITALS: BP 123/63; PULSE 89; RESP 20; TEMP 37; O2SAT 93
--- NOTE | 2019-08-24 17:37 | HP.PCM_ITS ---
Problem List (1) Debility Status: Acute (2) Tendinopathy of right rotator cuff Status: Acute (3) Osteoarthritis Status: Chronic (4) Hypertension Status: Chronic (5) Edema Status: Chronic (6) Iron deficiency anemia Status: Chronic (7) Overactive bladder Status: Chronic (8) Anxiety and depression Status: Chronic (9) Hyperlipidemia Status: Chronic (10) Benign prostatic hyperplasia Status: Chronic (11) Hypothyroidism Status: Chronic (12) JONAS (obstructive sleep apnea) Status: Chronic (13) History of reverse total replacement of right shoulder joint Status: Acute History of Present Illness Date of Admission: 08/24/19 Chief Complaint: Here for rehabilitation, strengthening, prior to discharge home with . 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 Low voltage QRS. Incomplete right bundle branch block. 08/21/2019 Dr. Gottlieb performed right reverse total shoulder replacement. 08/22/2019 Tylenol, Oxycodone for pain control. Aspirin for DVT prophylaxis. Ultrasling right upper extremity. 08/22/2019 IV fluids for acute on chronic kidney disease. 08/23/2019 WBC improving, decadron given intraoperatively. 08/24/2019 Admit to TCU with debility, here for rehabilitation, strengthening, prior to discharge home with . Past Medical History Past Medical History (Chronic Problems): Chronic Problems (This Medical Record has been edited. Action required.) Osteoarthritis (Chronic) Hypertension (Chronic) Edema (Chronic) Iron deficiency anemia (Chronic) Overactive bladder (Chronic) Stage III chronic kidney disease (Chronic) Anxiety and depression (Chronic) Hyperlipidemia (Chronic) Benign prostatic hyperplasia (Chronic) Hypothyroidism (Chronic) JONAS (obstructive sleep apnea) (Chronic) Essential hypertension (Chronic) Medical History: Medical History (This Medical Record has been edited. Action required.) JONAS (obstructive sleep apnea) (Chronic) G47.33 Essential hypertension (Chronic) I10 Anxiety and depression F41.9, F32.9 BPH (benign prostatic hyperplasia) N40.0 CKD (chronic kidney disease), stage III N18.3 COPD (chronic obstructive pulmonary disease) J44.9 Hypothyroidism E03.9 Neuropathy G62.9 PVD (peripheral vascular disease) I73.9 Vitamin D deficiency E55.9 Allergies tramadol Allergy (Intermediate, Verified 08/21/19 09:21) Unknown Antihistamines - Alkylamine Allergy (Verified 08/21/19 09:21) kidney failure Penicillins Allergy (Verified 08/21/19 09:21) Unknown Sulfa (Sulfonamide Antibiotics) Allergy (Verified 08/21/19 09:21) Unknown Home Medications: Ambulatory Orders Medication Instructions Recorded ALPRAZolam [Xanax] 1 mg PO TID 08/05/19 Diltiazem CD [Cardizem CD] 240 mg PO QHS 08/05/19 Duloxetine HCl 60 mg PO DAILY 08/05/19 Ferrous Sulfate 325 mg PO QHS 08/05/19 Levothyroxine Sodium [Synthroid] 125 mcg PO DAILY 08/05/19 Losartan Potassium [Cozaar] 50 mg PO DAILY 08/05/19 Multivit-Min/FA/Lycopen/Lutein 1 ea PO DAILY 08/05/19 [Centrum Silver Men Tablet] Olanzapine [Zyprexa] 5 mg PO DAILY 08/05/19 Simvastatin [Zocor] 20 mg PO DAILY 08/05/19 Tamsulosin HCl [Flomax] 0.4 mg PO QHS 08/05/19 Tolterodine Tartrate [Detrol LA] 2 mg PO DAILY 08/05/19 Vit C/E/Zn/Coppr/Lutein/Zeaxan 1 ea PO BID 08/05/19 [Preservision Areds 2 Softgel] furosemide 20 mg tablet 10 mg PO DAILY tab 08/06/19 vitamin B complex tablet 1 tab PO DAILY 08/06/19 Acetaminophen [Tylenol] 1,000 mg PO Q8 08/24/19 Aspirin E.C. [Ecotrin] 81 mg PO DAILY@0800 08/24/19 Oxycodone [Oxyir] 2.5 mg PO Q4H PRN PRN 7 Days #10 08/24/19 tab Senna/Docusate Sodium [Senokot-S] 2 tab PO BID 08/24/19 Surgical History: Surgical History (This Medical Record has been edited. 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 Psychiatric History: Anxiety, Depression Lives: Spouse/ Significant Other Smoking Status: Never smoker Tobacco Use: Non-smoker Alcohol: None - *Family History Maternal Family History: Family History (This Medical Record has been edited. Action required.) Father Cancer Sister ALS (amyotrophic lateral sclerosis) History Items: No pertinent history Paternal Family History: Family History (This Medical Record has been edited. Action required.) Father Cancer Sister ALS (amyotrophic lateral sclerosis) History Items: No pertinent history Review of Systems Constitutional: Denies: Chills, Fever, Weight Change HEENT: Denies: Head Aches, Sinus Congestion, Sinus Drainage Cardiovascular: Denies: Chest Pain, Palpitations Respiratory: Denies: Cough, Shortness of breath at rest, Sputum production Gastrointestinal: Denies: Abdominal Pain, Nausea, Vomiting Genitourinary: Denies: Dysuria Musculoskeletal: Denies: Joint Pain, Joint Tenderness Skin: Denies: Rash, Wounds Neurological: Denies: Numbness, Tingling, Focal weakness Psychiatric: Denies: Anxiety, Depression, Homicidal Ideations, Suicidal Ideations Hematologic/ Lymphatic: Denies: Easy Bruising, Easy Bleeding VTE Information - Inpt Only VTE Present on Admission: No VTE Mechan Device Prophylaxis: Knee High MONE Hose VTE Pharm Prophylaxis ordered?: Yes Patient Problems: Active and Suspected Problems (This Medical Record has been edited. 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) - Physical Exam Vitals/I&O's: Vital Signs Temp Pulse Resp BP Pulse Ox 98.6 F 89 20 H 123/63 H 93 08/24/19 15:36 08/24/19 15:36 08/24/19 15:36 08/24/19 15:36 08/24/19 15:36 Oxygen Delivery Method Room Air Weight: 114.05 kg Body Mass Index (BMI) 35.0 General: Alert, Oriented x3, Cooperative HEENT: Atraumatic, PERRLA, EOMI, Normocephalic Neck: Supple, No JVD, Negative Carotid Bruits Lungs: Clear to auscultation, Normal air movement Cardiovascular: Regular rate, No murmurs Abdomen: Bowel Sounds Present, Soft, Non Tender Extremities: No edema, Capillary Refill Less than 3 Seconds Skin: No rashes, No breakdown Musculoskeletal: No Tenderness to Palpation of Joints or Extremities, - - Right upper extremity ultrasling. Neurological: Cranial nerves II-XII grossly intact Psych/Mental Status: Normal Affect, Appropriate Current Medications Acetaminophen (Tylenol) 1,000 mg PO Q8 [facility] Alprazolam (Xanax) 1 mg PO TID [facility] Aspirin (Ecotrin) 81 mg PO DAILY@0800 [facility] Atorvastatin Calcium (Lipitor) 10 mg PO DAILY [facility] Diltiazem HCl (Cardizem Cd) 240 mg PO QHS [facility] Duloxetine HCl (Cymbalta) 60 mg PO DAILY [facility] Ferrous Sulfate (Ferrous Sulfate) 325 mg PO QHS [facility] Furosemide (Lasix) 10 mg PO DAILY [facility] Levothyroxine Sodium (Synthroid) 125 mcg PO DAILY [facility] Losartan Potassium (Cozaar) 50 mg PO DAILY [facility] Olanzapine (Zyprexa) 5 mg PO DAILY [facility] Oxycodone HCl (Oxyir) 2.5 mg PO Q4H PRN PRN PRN Reason: Pain Score 4-10/10 Senna/Docusate Sodium (Senokot-S, Loretta-Colace) 2 tablet PO BID [facility] Tamsulosin HCl (Flomax) 0.4 mg PO QHS [facility] Tolterodine Tartrate (Detrol La) 2 mg PO DAILY [facility] Tuberculin PPD (Tubersol, Aplisol, Ppd) 5 tu ID X1 ONE Stop: 08/25/19 10:01 Tuberculin PPD (Tubersol, Aplisol, Ppd) 5 tu ID X1 ONE Stop: 09/01/19 10:01 Assessment/Plan All Active Problems (This Medical Record has been edited. 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) 79 year old male with below past medical history hospitalized for right reverse total shoulder replacement 08/21/[address] Gottlieb, admitted to TCU with debility, here for rehabilitation, strengthening, prior to discharge home with . * Debility - PT/OT. * Pain - Tylenol 1000MG Q8H, Oxycodone 2.5MG Q4H PRN pain (4-10) * Bowel - Miralax 17GM daily, Senna/colace 2 tablets BID, Dulcolax 10MG daily PRN. * Adult immunization - Administer Prevnar 13, Pneumovax 23, Fluzone as necessary. * DVT prophylaxis - Aspirin 81MG daily per Ortho. * Anxiety - Xanax 1MG TID, stable chronic [employer] use, GDR clinically contraindicated. * Hyperlipidemia - Atorvastatin 10MG QHS. * Hypertension - Diltiazem 240MG QHS, Losartan 50MG daily. * Depression - Duloxetine 60MG daily, Zyprexa 5MG daily, stable chronic usp use, GDR clinically contraindicated. * Iron deficiency - Ferrous sulfate 325MG QHS. * Edema - Lasix 10MG daily. * Hypothyroidism - Levothyroxine 125MCG daily. * BPH - Tamsulosin 0.4MG QHS. * Overactive bladder - Tolterodine 2MG daily.
[2019-08-24 17:40] VITALS: O2SAT 95
[2019-08-24] MEDS: Senna/Docusate Sodium 1 Tablet 2 TABLET PO (17:46)
--- NOTE | 2019-08-24 17:47 | CPS ---
Pt. placed on home regimen of 3L O2 NC.
[2019-08-24] MEDS: ALPRAZolam 0.5 MG Tablet 1 MG PO (21:46)
[2019-08-24] MEDS: Acetaminophen 500 MG Tablet 1000 MG PO (21:47)
[2019-08-24] MEDS: Tamsulosin HCl 0.4 MG Capsule PO (21:47)
[2019-08-24] MEDS: Ferrous Sulfate 325 MG Tablet PO (21:48)
[2019-08-24] MEDS: dilTIAZem CD 240 MG Capsule PO (21:48)
[2019-08-25] MEDS: ALPRAZolam 0.5 MG Tablet 1 MG PO ×3 (05:49→21:39)
[2019-08-25] MEDS: Acetaminophen 500 MG Tablet 1000 MG PO ×3 (05:49→21:39)
[2019-08-25] MEDS: Levothyroxine 125 MCG Tablet PO (05:50)
[2019-08-25] MEDS: DULoxetine Hcl 60 MG Capsule PO (05:50)
[2019-08-25] MEDS: Tolterodine Tartrate 2 MG CAP.SA PO (05:50)
[2019-08-25] MEDS: Atorvastatin Calcium 10 MG Tablet PO (05:50)
[2019-08-25] MEDS: Senna/Docusate Sodium 1 Tablet 2 TABLET PO ×2 (05:50→16:30)
[2019-08-25] MEDS: Furosemide 20 MG Tablet 10 MG PO (05:51)
[2019-08-25] MEDS: Losartan Potassium 50 MG Tablet PO (05:51)
[2019-08-25] MEDS: OLANZapine 10 MG Tablet 5 MG PO (05:51)
[2019-08-25 06:45] LABS: Absolute Neutrophil Count 6.7 X10^3/uL (2.0-7.7); Basophil# 0.08 X10^3/uL; Basophil% 0.8 % (0-1); Eosinophil# 0.54 X10^3/uL; Eosinophils% 5.2 % (0-5); Hematocrit 34.5 % (40-54); Hemoglobin 11.1 g/dL (13.0-16.5); Mean Corp Hgb Conc 32.2 g/dL (32-36); Mean Corpuscular Hgb 29.9 pg (27.0-32.0); Mean Platelet Vol. 9.2 fl (6.2-12.0); Monocyte% 9.5 % (0-10); NRBC Flagged by Analyzer 0 % (0-5); Neutrophil % 63.9 % (47-70); Platelet Count 199 K/mm3 (150-450); RBC Distribution Width CV 14.3 % (11.6-14.6); RBC Distribution Width SD 48.7 fl (35.1-43.9); Red Blood Count 3.71 M/mm3 (4.6-6.2); White Blood Count 10.5 K/mm3 (4.4-11.0)
[2019-08-25 07:11] LABS: Anion Gap 7 (5-15); BUN 30 mg/dL (7-18); BUN/Creat Ratio 25.2 RATIO (10-20); Calcium,Total 8.3 mg/dL (8.5-10.1); Chloride 103 mmol/L (98-107); Creatinine, Serum 1.19 mg/dL (0.70-1.30); EST Glomerular Filtration Rate 63 mL/min (>60); Est Glom Filt Rate - Afr Amer 76 mL/min (>60); Estimated Creatinine Clearance 53.61 ml/min; Glucose 99 mg/dL (74-106); Potassium 4.4 mmol/L (3.5-5.1); Sodium Level 139 mmol/L (136-145)
[2019-08-25 07:33] VITALS: O2SAT 94
[2019-08-25] MEDS: Aspirin E.C. 81 MG Tablet PO (08:01)
[2019-08-25] MEDS: Tuberculin,Purif.prot.deriv. 50 TU/ML Vial 5 ML ID (10:19)
[2019-08-25 15:47] VITALS: BP 131/56; PULSE 87; RESP 18; TEMP 37.1; O2SAT 97
[2019-08-25] MEDS: Tamsulosin HCl 0.4 MG Capsule PO (21:40)
[2019-08-25] MEDS: dilTIAZem CD 240 MG Capsule PO (21:40)
[2019-08-25] MEDS: Ferrous Sulfate 325 MG Tablet PO (21:40)
[2019-08-26] MEDS: ALPRAZolam 0.5 MG Tablet 1 MG PO ×3 (05:59→21:09)
[2019-08-26] MEDS: Acetaminophen 500 MG Tablet 1000 MG PO ×3 (05:59→21:05)
[2019-08-26] MEDS: Atorvastatin Calcium 10 MG Tablet PO (06:00)
[2019-08-26] MEDS: DULoxetine Hcl 60 MG Capsule PO (06:00)
[2019-08-26] MEDS: Senna/Docusate Sodium 1 Tablet 2 TABLET PO ×2 (06:00→17:13)
[2019-08-26] MEDS: Tolterodine Tartrate 2 MG CAP.SA PO (06:00)
[2019-08-26] MEDS: Losartan Potassium 50 MG Tablet PO (06:01)
[2019-08-26] MEDS: Furosemide 20 MG Tablet 10 MG PO (06:01)
[2019-08-26] MEDS: OLANZapine 10 MG Tablet 5 MG PO (06:02)
[2019-08-26] MEDS: Levothyroxine 125 MCG Tablet PO (06:02)
[2019-08-26 07:45] VITALS: O2SAT 93
[2019-08-26] MEDS: Aspirin E.C. 81 MG Tablet PO (09:03)
--- NOTE | 2019-08-26 15:21 | PCM.PN.RX ---
<TylorMargot - Last Filed: 08/26/19 15:21> Progress Note - Pharmacy Subjective: TCU Admission Objective: Allergies tramadol Allergy (Intermediate, Verified 08/21/19 09:21) Unknown Antihistamines - Alkylamine Allergy (Verified 08/21/19 09:21) kidney failure Penicillins Allergy (Verified 08/21/19 09:21) Unknown Sulfa (Sulfonamide Antibiotics) Allergy (Verified 08/21/19 09:21) Unknown Current Medications Generic Name Dose Route Start Last Admin Trade Name Freq PRN Reason Stop Dose Admin Acetaminophen 1,000 mg 08/24/19 22:00 08/26/19 13:58 Tylenol PO 1,000 mg Q8 EBONY Administration Alprazolam 1 mg 08/24/19 22:00 08/26/19 13:58 Xanax PO 1 mg TID EBONY Administration Aspirin 81 mg 08/25/19 08:00 08/26/19 09:03 Ecotrin PO 81 mg DAILY@0800 EBONY Administration Atorvastatin Calcium 10 mg 08/25/19 06:00 08/26/19 06:00 Lipitor PO 10 mg DAILY EBONY Administration Bisacodyl 10 mg 08/24/19 17:51 Dulcolax PO DAILY PRN Constipation Diltiazem HCl 240 mg 08/24/19 22:00 08/25/19 21:40 Cardizem Cd PO 240 mg QHS EBONY Administration Duloxetine HCl 60 mg 08/25/19 06:00 08/26/19 06:00 Cymbalta PO 60 mg DAILY EBONY Administration Ferrous Sulfate 325 mg 08/24/19 22:00 08/25/19 21:40 Ferrous Sulfate PO 325 mg QHS EBONY Administration Furosemide 10 mg 08/25/19 06:00 08/26/19 06:01 Lasix PO 10 mg DAILY EBONY Administration Levothyroxine Sodium 125 mcg 08/25/19 06:00 08/26/19 06:02 Synthroid PO 125 mcg DAILY EBONY Administration Losartan Potassium 50 mg 08/25/19 06:00 08/26/19 06:01 Cozaar PO 50 mg DAILY EBONY Administration Olanzapine 5 mg 08/25/19 06:00 08/26/19 06:02 Zyprexa PO 5 mg DAILY EBONY Administration Oxycodone HCl 2.5 mg 08/24/19 16:03 Oxyir PO Q4H PRN PRN Pain Score 4-07/18 Polyethylene Glycol 17 gm 08/25/19 06:00 08/26/19 06:00 Miralax PO Not Given DAILY [facility] Senna/Docusate Sodium 2 tablet 08/24/19 18:00 08/26/19 06:00 Senokot-S, Loretta-Colace PO 2 tablet BID EBONY Administration Tamsulosin HCl 0.4 mg 08/24/19 22:00 08/25/19 21:40 Flomax PO 0.4 mg QHS EBONY Administration Tolterodine Tartrate 2 mg 08/25/19 06:00 08/26/19 06:00 Detrol La PO 2 mg DAILY EBONY Administration Tuberculin PPD 5 tu 09/01/19 10:00 Tubersol, Aplisol, Ppd ID 09/01/19 10:01 X1 ONE Problem List (This Medical Record has been edited. 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) Vital Signs Temp Pulse Resp BP Pulse Ox 98.7 F 87 18 131/56 H 93 08/25/19 15:47 08/25/19 15:47 08/25/19 15:47 08/25/19 15:47 08/26/19 07:45 Oxygen Flow Rate (L/min) 2 Oxygen Delivery Method Nasal Cannula Weight: 114.05 kg Body Mass Index (BMI) 35.0 Sodium 139 mmol/L (136-145) 08/25/19 06:29 Potassium 4.4 mmol/L (3.5-5.1) 08/25/19 06:29 Chloride 103 mmol/L (98-107) 08/25/19 06:29 Carbon Dioxide 29.0 mmol/L (21.0-32.0) 08/25/19 06:29 Anion Gap 7 (5-15) 08/25/19 06:29 BUN 30 mg/dL (7-18) H 08/25/19 06:29 Creatinine 1.19 mg/dL (0.70-1.30) 08/25/19 06:29 Est GFR (MDRD) Af Amer 76 mL/min (>60) 08/25/19 06:29 Est GFR (MDRD) Non-Af 63 mL/min (>60) 08/25/19 06:29 BUN/Creatinine Ratio 25.2 RATIO (10-20) H 08/25/19 06:29 Glucose 99 mg/dL (74-106) 08/25/19 06:29 Assessment/Plan: 1. Pain: acetaminophen 1000mg PO Q8H and oxycodone 2.5mg PO Q4H PRN pain 4-07/18. Please continue to monitor for pain and PRN usage. 2. DVT prophylaxis: aspirin 81mg PO DAILYCM. Please continue to monitor for S/S of bleeding. 3. Hypertension: diltiazem 240mg PO QHS, losartan 50mg daily. Please continue to monitor BP and HR. 4. Edema: furosemide 10mg PO daily. Please continue to monitor potassium level and renal function. *5. Hyperlipidemia: atorvastatin 10mg PO QHS. No recent lipid panel in patient's chart. Please consider a lipid panel now and then annually as clinically appropriate. Please continue to monitor for muscle pain. 6. Hypothyroidism: levothyroxine 125mcg PO daily. I did not see a TSH level in the patient's chart. Please consider ordering one now and then annually as clinically appropriate. Please continue to monitor for S/S hypo/hyperthyroidism. 7. BPH/Overactive bladder: tamsulosin 0.4mg PO QHS and tolterodine 2mg PO daily. Please continue to monitor for S/S of overactive bladder, dry mouth, and constipation. 8. Iron deficiency anemia: ferrous sulfate 325mg PO QHS. Please continue to monitor hemoglobin and dark stools. Psychotropic Medications: 1. Anxiety: alprazolam 1mg PO TID. Please see physician note regarding GDR. Please continue to monitor for somnolence. 2. Depression: duloxetine 60mg PO daily, olanzapine 5mg PO daily. Please see physician note regarding GDR. Please continue to monitor for weight gain, increased lipids and increased glucose. Unnecessary Medications: None Bowel Regimen: Miralax 17gm PO daily, senna/docusate 2T PO BID, bisacodyl 10mg PO daily PRN constipation. Please continue to monitor for constipation and PRN usage. Date of Note:: 08/26/19 - Provider Comments Provider responsibility: Provider responsible to enter orders to implement recommendations <Dante Shi Chi - Last Filed: 08/26/19 17:42> Progress Note - Pharmacy Subjective: [] Objective: Allergies tramadol Allergy (Intermediate, Verified 08/21/19 09:21) Unknown Antihistamines - Alkylamine Allergy (Verified 08/21/19 09:21) kidney failure Penicillins Allergy (Verified 08/21/19 09:21) Unknown Sulfa (Sulfonamide Antibiotics) Allergy (Verified 08/21/19 09:21) Unknown Current Medications Generic Name Dose Route Start Last Admin Trade Name Freq PRN Reason Stop Dose Admin Acetaminophen 1,000 mg 08/24/19 22:00 08/26/19 13:58 Tylenol PO 1,000 mg Q8 EBONY Administration Alprazolam 1 mg 08/24/19 22:00 08/26/19 13:58 Xanax PO 1 mg TID EBONY Administration Aspirin 81 mg 08/25/19 08:00 08/26/19 09:03 Ecotrin PO 81 mg DAILY@0800 EBONY Administration Atorvastatin Calcium 10 mg 08/25/19 06:00 08/26/19 06:00 Lipitor PO 10 mg DAILY EBONY Administration Bisacodyl 10 mg 08/24/19 17:51 Dulcolax PO DAILY PRN Constipation Diltiazem HCl 240 mg 08/24/19 22:00 08/25/19 21:40 Cardizem Cd PO 240 mg QHS EBONY Administration Duloxetine HCl 60 mg 08/25/19 06:00 08/26/19 06:00 Cymbalta PO 60 mg DAILY EBONY Administration Ferrous Sulfate 325 mg 08/24/19 22:00 08/25/19 21:40 Ferrous Sulfate PO 325 mg QHS EBONY Administration Furosemide 10 mg 08/25/19 06:00 08/26/19 06:01 Lasix PO 10 mg DAILY EBONY Administration Levothyroxine Sodium 125 mcg 08/25/19 06:00 08/26/19 06:02 Synthroid PO 125 mcg DAILY EBONY Administration Losartan Potassium 50 mg 08/25/19 06:00 08/26/19 06:01 Cozaar PO 50 mg DAILY EBONY Administration Olanzapine 5 mg 08/25/19 06:00 08/26/19 06:02 Zyprexa PO 5 mg DAILY EBONY Administration Oxycodone HCl 2.5 mg 08/24/19 16:03 Oxyir PO Q4H PRN PRN Pain Score 4-10 Polyethylene Glycol 17 gm 08/25/19 06:00 08/26/19 06:00 Miralax PO Not Given DAILY [facility] Senna/Docusate Sodium 2 tablet 08/24/19 18:00 08/26/19 17:13 Senokot-S, Loretta-Colace PO 2 tablet BID EBONY Administration Tamsulosin HCl 0.4 mg 08/24/19 22:00 08/25/19 21:40 Flomax PO 0.4 mg QHS EBONY Administration Tolterodine Tartrate 2 mg 08/25/19 06:00 08/26/19 06:00 Detrol La PO 2 mg DAILY EBONY Administration Tuberculin PPD 5 tu 09/01/19 10:00 Tubersol, Aplisol, Ppd ID 09/01/19 10:01 X1 ONE Problem List (This Medical Record has been edited. 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) Vital Signs Temp Pulse Resp BP Pulse Ox 98.5 F 87 18 138/65 H 97 08/26/19 16:00 08/26/19 16:00 08/26/19 16:00 08/26/19 16:00 08/26/19 16:00 Oxygen Flow Rate (L/min) 2 Oxygen Delivery Method Nasal Cannula Weight: 114.05 kg Body Mass Index (BMI) 35.0 Sodium 139 mmol/L (136-145) 08/25/19 06:29 Potassium 4.4 mmol/L (3.5-5.1) 08/25/19 06:29 Chloride 103 mmol/L (98-107) 08/25/19 06:29 Carbon Dioxide 29.0 mmol/L (21.0-32.0) 08/25/19 06:29 Anion Gap 7 (5-15) 08/25/19 06:29 BUN 30 mg/dL (7-18) H 08/25/19 06:29 Creatinine 1.19 mg/dL (0.70-1.30) 08/25/19 06:29 Est GFR (MDRD) Af Amer 76 mL/min (>60) 08/25/19 06:29 Est GFR (MDRD) Non-Af 63 mL/min (>60) 08/25/19 06:29 BUN/Creatinine Ratio 25.2 RATIO (10-20) H 08/25/19 06:29 Glucose 99 mg/dL (74-106) 08/25/19 06:29 Assessment/Plan: Psychotropic Medications: Unnecessary Medications: Bowel Regimen: - Provider Comments Provider responsibility: Provider responsible to enter orders to implement recommendations Provider Comments to Recommendations by Pharmacy: Agree
[2019-08-26 16:00] VITALS: BP 138/65; PULSE 87; RESP 18; TEMP 36.9; O2SAT 97
[2019-08-26] MEDS: Ferrous Sulfate 325 MG Tablet PO (21:04)
[2019-08-26] MEDS: Tamsulosin HCl 0.4 MG Capsule PO (21:04)
[2019-08-26] MEDS: dilTIAZem CD 240 MG Capsule PO (21:07)
[2019-08-26 21:10] VITALS: PULSE 74; RESP 16; O2SAT 98
--- NOTE | 2019-08-27 06:21 | NURSING ---
Pt questioning ensure be added for nutrition. Dietitian notified.
[2019-08-27] MEDS: ALPRAZolam 0.5 MG Tablet 1 MG PO ×3 (06:22→21:27)
[2019-08-27] MEDS: Losartan Potassium 50 MG Tablet PO (06:23)
[2019-08-27] MEDS: OLANZapine 10 MG Tablet 5 MG PO (06:23)
[2019-08-27] MEDS: Acetaminophen 500 MG Tablet 1000 MG PO ×3 (06:23→21:27)
[2019-08-27] MEDS: Levothyroxine 125 MCG Tablet PO (06:24)
[2019-08-27] MEDS: Tolterodine Tartrate 2 MG CAP.SA PO (06:24)
[2019-08-27] MEDS: DULoxetine Hcl 60 MG Capsule PO (06:24)
[2019-08-27] MEDS: Atorvastatin Calcium 10 MG Tablet PO (06:24)
[2019-08-27] MEDS: Senna/Docusate Sodium 1 Tablet 2 TABLET PO ×2 (06:24→16:52)
[2019-08-27] MEDS: Furosemide 20 MG Tablet 10 MG PO (06:25)
[2019-08-27 06:32] VITALS: O2SAT 93
[2019-08-27] MEDS: Aspirin E.C. 81 MG Tablet PO (07:54)
[2019-08-27 15:11] VITALS: BP 122/51; PULSE 84; RESP 22; TEMP 36.8; O2SAT 96
[2019-08-27] MEDS: dilTIAZem CD 240 MG Capsule PO (21:27)
[2019-08-27] MEDS: Tamsulosin HCl 0.4 MG Capsule PO (21:27)
[2019-08-27] MEDS: Ferrous Sulfate 325 MG Tablet PO (21:27)
[2019-08-28] MEDS: Tolterodine Tartrate 2 MG CAP.SA PO (04:33)
[2019-08-28] MEDS: Atorvastatin Calcium 10 MG Tablet PO (04:33)
[2019-08-28] MEDS: Senna/Docusate Sodium 1 Tablet 2 TABLET PO ×2 (04:33→16:57)
[2019-08-28] MEDS: OLANZapine 10 MG Tablet 5 MG PO (04:33)
[2019-08-28] MEDS: Levothyroxine 125 MCG Tablet PO (04:33)
[2019-08-28] MEDS: Furosemide 20 MG Tablet 10 MG PO (04:33)
[2019-08-28] MEDS: Acetaminophen 500 MG Tablet 1000 MG PO ×3 (04:36→21:06)
[2019-08-28] MEDS: Losartan Potassium 50 MG Tablet PO (04:37)
[2019-08-28] MEDS: ALPRAZolam 0.5 MG Tablet 1 MG PO ×3 (04:41→21:04)
[2019-08-28] MEDS: DULoxetine Hcl 60 MG Capsule PO (04:48)
--- NOTE | 2019-08-28 06:52 | NURSING ---
ENEMA RESULTED IN LARGE BOWEL MOVEMENT CONSISTING OF HARD STOOL
[2019-08-28] MEDS: Aspirin E.C. 81 MG Tablet PO (08:00)
[2019-08-28 08:13] VITALS: O2SAT 94
--- NOTE | 2019-08-28 09:40 | CASEMGMT ---
Social Work IDT met with patient and for care plan meeting. Discussed patient's progress in therapy. Pt is walking 50 ft with hemiwalker at [facility] to min assist and w/c follow, LE max assist for ADLs, min assist for UE bathing, [facility] for transfers, min assist bed mobility, max assist for toileting, mod assist for UE dressing. Pt lives at home with with 0 steps to enter. Pt is ready to DC home at any time, but pt is still needing assistance that cannot provide and is not ready for pt to DC home yet. Therapy will continue to work with pt. Insurance update 09/02 but continued stay is not guaranteed. Pt has Dr. mayes/johnny appt for shoulder on 09/03. Pt is currently NWB for shoulder. Will continue to follow. KIRIT Garcia ANTHROPOMETRIST
[2019-08-28 16:00] VITALS: BP 150/73; PULSE 89; RESP 18; TEMP 36.9; O2SAT 97
[2019-08-28] MEDS: oxyCODONE 5 MG Tablet 2.5 MG PO (16:57)
--- NOTE | 2019-08-28 17:34 | NURSING ---
r' states he was on tapering zyprexa and should be completed. notified dr. keating. dc'd. updated r'.
[2019-08-28] MEDS: Tamsulosin HCl 0.4 MG Capsule PO (21:06)
[2019-08-28] MEDS: dilTIAZem CD 240 MG Capsule PO (21:07)
[2019-08-28] MEDS: Ferrous Sulfate 325 MG Tablet PO (21:07)
[2019-08-29] MEDS: ALPRAZolam 0.5 MG Tablet 1 MG PO ×3 (05:03→21:09)
[2019-08-29] MEDS: Senna/Docusate Sodium 1 Tablet 2 TABLET PO ×2 (05:04→17:48)
[2019-08-29] MEDS: Levothyroxine 125 MCG Tablet PO (05:04)
[2019-08-29] MEDS: Acetaminophen 500 MG Tablet 1000 MG PO ×3 (05:04→21:09)
[2019-08-29] MEDS: Tolterodine Tartrate 2 MG CAP.SA PO (05:04)
[2019-08-29] MEDS: DULoxetine Hcl 60 MG Capsule PO (05:05)
[2019-08-29] MEDS: Atorvastatin Calcium 10 MG Tablet PO (05:05)
[2019-08-29] MEDS: Losartan Potassium 50 MG Tablet PO (05:05)
[2019-08-29] MEDS: Furosemide 20 MG Tablet 10 MG PO (05:05)
[2019-08-29] MEDS: oxyCODONE 5 MG Tablet 2.5 MG PO ×2 (05:29→19:43)
[2019-08-29 07:51] VITALS: O2SAT 95
[2019-08-29] MEDS: Aspirin E.C. 81 MG Tablet PO (08:02)
[2019-08-29 15:08] VITALS: BP 160/85; PULSE 82; RESP 20; TEMP 36.3; O2SAT 96
[2019-08-29] MEDS: dilTIAZem CD 240 MG Capsule PO (21:09)
[2019-08-29] MEDS: Ferrous Sulfate 325 MG Tablet PO (21:10)
[2019-08-29] MEDS: Tamsulosin HCl 0.4 MG Capsule PO (21:10)
[2019-08-30] MEDS: Tolterodine Tartrate 2 MG CAP.SA PO (05:14)
[2019-08-30] MEDS: ALPRAZolam 0.5 MG Tablet 1 MG PO ×3 (05:14→21:02)
[2019-08-30] MEDS: Losartan Potassium 50 MG Tablet PO (05:14)
[2019-08-30] MEDS: Senna/Docusate Sodium 1 Tablet 2 TABLET PO ×2 (05:14→17:30)
[2019-08-30] MEDS: DULoxetine Hcl 60 MG Capsule PO (05:14)
[2019-08-30] MEDS: Furosemide 20 MG Tablet 10 MG PO (05:14)
[2019-08-30] MEDS: Atorvastatin Calcium 10 MG Tablet PO (05:14)
[2019-08-30] MEDS: Levothyroxine 125 MCG Tablet PO (05:14)
[2019-08-30] MEDS: Acetaminophen 500 MG Tablet 1000 MG PO ×3 (05:15→21:03)
[2019-08-30] MEDS: Aspirin E.C. 81 MG Tablet PO (09:05)
--- NOTE | 2019-08-30 14:09 | CASEMGMT ---
BIMS and PHQ9 interviews completed on this date for MDS assessment. JULIO Hernandez
--- NOTE | 2019-08-30 14:10 | CASEMGMT ---
Social Work Social Work assisted pt in completing Living Will and Health Care POA. Copy placed in pt chart and original given to pt and his . JULIO Hernandez
--- NOTE | 2019-08-30 14:37 | MDS.RN ---
Pain interview for leslie 08/31/19 completed.
[2019-08-30 15:15] VITALS: BP 124/44; PULSE 79; RESP 18; TEMP 36.9; O2SAT 93
[2019-08-30] MEDS: oxyCODONE 5 MG Tablet 2.5 MG PO (17:33)
[2019-08-30] MEDS: dilTIAZem CD 240 MG Capsule PO (21:03)
[2019-08-30] MEDS: Tamsulosin HCl 0.4 MG Capsule PO (21:03)
[2019-08-30] MEDS: Ferrous Sulfate 325 MG Tablet PO (21:04)
[2019-08-31] MEDS: DULoxetine Hcl 60 MG Capsule PO (04:46)
[2019-08-31] MEDS: ALPRAZolam 0.5 MG Tablet 1 MG PO ×3 (04:46→21:03)
[2019-08-31] MEDS: Tolterodine Tartrate 2 MG CAP.SA PO (04:47)
[2019-08-31] MEDS: Atorvastatin Calcium 10 MG Tablet PO (04:47)
[2019-08-31] MEDS: Acetaminophen 500 MG Tablet 1000 MG PO ×3 (04:47→21:01)
[2019-08-31] MEDS: Senna/Docusate Sodium 1 Tablet 2 TABLET PO ×2 (04:48→17:06)
[2019-08-31] MEDS: Levothyroxine 125 MCG Tablet PO (04:48)
[2019-08-31] MEDS: Furosemide 20 MG Tablet 10 MG PO (04:48)
[2019-08-31] MEDS: Losartan Potassium 50 MG Tablet PO (04:48)
[2019-08-31] MEDS: Aspirin E.C. 81 MG Tablet PO (07:51)
[2019-08-31] MEDS: oxyCODONE 5 MG Tablet 2.5 MG PO (09:53)
[2019-08-31 12:50] VITALS: O2SAT 95
[2019-08-31 16:00] VITALS: BP 133/58; PULSE 75; RESP 16; TEMP 36.7; O2SAT 97
[2019-08-31] MEDS: Tamsulosin HCl 0.4 MG Capsule PO (21:01)
[2019-08-31] MEDS: Ferrous Sulfate 325 MG Tablet PO (21:01)
[2019-08-31] MEDS: dilTIAZem CD 240 MG Capsule PO (21:01)
[2019-09-01] MEDS: Furosemide 20 MG Tablet 10 MG PO (05:20)
[2019-09-01] MEDS: Atorvastatin Calcium 10 MG Tablet PO (05:20)
[2019-09-01] MEDS: Levothyroxine 125 MCG Tablet PO (05:20)
[2019-09-01] MEDS: Senna/Docusate Sodium 1 Tablet 2 TABLET PO ×2 (05:20→17:03)
[2019-09-01] MEDS: Losartan Potassium 50 MG Tablet PO (05:20)
[2019-09-01] MEDS: Acetaminophen 500 MG Tablet 1000 MG PO ×3 (05:20→21:01)
[2019-09-01] MEDS: Tolterodine Tartrate 2 MG CAP.SA PO (05:21)
[2019-09-01] MEDS: DULoxetine Hcl 60 MG Capsule PO (05:21)
[2019-09-01 05:22] LABS: Absolute Lymphocyte Count 2.19 X10^3/uL (0.83-4.51); Absolute Neutrophil Count 5.1 X10^3/uL (2.0-7.7); Basophil# 0.05 X10^3/uL; Basophil% 0.6 % (0-1); Eosinophils% 4.7 % (0-5); Hemoglobin 10.6 g/dL (13.0-16.5); Lymphocyte # 2.19 X10^3/ul (4.0); Lymphocyte % 25.7 % (19-41); Mean Corp Hgb Conc 33.1 g/dL (32-36); Mean Corpuscular Hgb 30.9 pg (27.0-32.0); Mean Corpuscular Volume 93.3 fL (80-94); Mean Platelet Vol. 8.6 fl (6.2-12.0); Monocyte# 0.77 X10^3/uL; NRBC Flagged by Analyzer 0 % (0-5); Neutrophil # 5.07 X10^3/uL (2.7-7.7); Neutrophil % 59.4 % (47-70); Platelet Count 279 K/mm3 (150-450); RBC Distribution Width CV 14.2 % (11.6-14.6); RBC Distribution Width SD 48.2 fl (35.1-43.9); Red Blood Count 3.43 M/mm3 (4.6-6.2); White Blood Count 8.5 K/mm3 (4.4-11.0)
[2019-09-01] MEDS: ALPRAZolam 0.5 MG Tablet 1 MG PO ×3 (05:22→21:01)
[2019-09-01 05:44] LABS: Anion Gap 6 (5-15); BUN 29 mg/dL (7-18); BUN/Creat Ratio 25.2 RATIO (10-20); Calcium,Total 8.3 mg/dL (8.5-10.1); Chloride 106 mmol/L (98-107); Creatinine, Serum 1.15 mg/dL (0.70-1.30); EST Glomerular Filtration Rate 65 mL/min (>60); Est Glom Filt Rate - Afr Amer 79 mL/min (>60); Estimated Creatinine Clearance 55.47 ml/min; Glucose 95 mg/dL (74-106); Potassium 4.4 mmol/L (3.5-5.1); Sodium Level 140 mmol/L (136-145)
[2019-09-01] MEDS: Aspirin E.C. 81 MG Tablet PO (08:44)
[2019-09-01] MEDS: Tuberculin,Purif.prot.deriv. 50 TU/ML Vial 5 ML ID (11:11)
[2019-09-01 15:40] VITALS: BP 138/73; PULSE 82; RESP 16; TEMP 36.9; O2SAT 95
[2019-09-01] MEDS: dilTIAZem CD 240 MG Capsule PO (21:01)
[2019-09-01] MEDS: Tamsulosin HCl 0.4 MG Capsule PO (21:01)
[2019-09-01] MEDS: Ferrous Sulfate 325 MG Tablet PO (21:01)
[2019-09-02] MEDS: oxyCODONE 5 MG Tablet 2.5 MG PO ×2 (02:51→12:48)
[2019-09-02] MEDS: DULoxetine Hcl 60 MG Capsule PO (05:52)
[2019-09-02] MEDS: Furosemide 20 MG Tablet 10 MG PO (05:52)
[2019-09-02] MEDS: Senna/Docusate Sodium 1 Tablet 2 TABLET PO ×2 (05:52→17:10)
[2019-09-02] MEDS: Tolterodine Tartrate 2 MG CAP.SA PO (05:52)
[2019-09-02] MEDS: Losartan Potassium 50 MG Tablet PO (05:52)
[2019-09-02] MEDS: Atorvastatin Calcium 10 MG Tablet PO (05:52)
[2019-09-02] MEDS: Acetaminophen 500 MG Tablet 1000 MG PO ×3 (05:53→21:05)
[2019-09-02] MEDS: Levothyroxine 125 MCG Tablet PO (05:53)
[2019-09-02] MEDS: ALPRAZolam 0.5 MG Tablet 1 MG PO ×3 (05:55→21:05)
[2019-09-02] MEDS: Aspirin E.C. 81 MG Tablet PO (07:40)
[2019-09-02 15:52] VITALS: BP 124/63; PULSE 74; RESP 17; TEMP 36.8; O2SAT 96
[2019-09-02] MEDS: dilTIAZem CD 240 MG Capsule PO (21:05)
[2019-09-02] MEDS: Tamsulosin HCl 0.4 MG Capsule PO (21:06)
[2019-09-02] MEDS: Ferrous Sulfate 325 MG Tablet PO (21:06)
[2019-09-03] MEDS: oxyCODONE 5 MG Tablet 2.5 MG PO ×3 (02:03→21:11)
[2019-09-03] MEDS: ALPRAZolam 0.5 MG Tablet 1 MG PO ×3 (06:17→21:15)
[2019-09-03] MEDS: Senna/Docusate Sodium 1 Tablet 2 TABLET PO ×2 (06:18→16:59)
[2019-09-03] MEDS: Acetaminophen 500 MG Tablet 1000 MG PO ×3 (06:19→21:11)
[2019-09-03] MEDS: DULoxetine Hcl 60 MG Capsule PO (06:19)
[2019-09-03] MEDS: Atorvastatin Calcium 10 MG Tablet PO (06:19)
[2019-09-03] MEDS: Levothyroxine 125 MCG Tablet PO (06:19)
[2019-09-03] MEDS: Losartan Potassium 50 MG Tablet PO (06:19)
[2019-09-03] MEDS: Tolterodine Tartrate 2 MG CAP.SA PO (06:19)
[2019-09-03] MEDS: Furosemide 20 MG Tablet 10 MG PO (06:20)
[2019-09-03 08:05] VITALS: O2SAT 94
[2019-09-03] MEDS: Aspirin E.C. 81 MG Tablet PO (08:55)
--- NOTE | 2019-09-03 10:51 | MDS.RN ---
Information for the mds was obtained from review of the clinical record, interview of resident, staff, and direct observation of resident's care.
[2019-09-03 15:58] VITALS: BP 112/45; PULSE 73; RESP 18; TEMP 36.4; O2SAT 94
[2019-09-03] MEDS: Tamsulosin HCl 0.4 MG Capsule PO (21:11)
[2019-09-03] MEDS: dilTIAZem CD 240 MG Capsule PO (21:12)
[2019-09-03] MEDS: Ferrous Sulfate 325 MG Tablet PO (21:12)
[2019-09-03 21:15] VITALS: BP 127/60; PULSE 65; RESP 18; O2SAT 97
[2019-09-04] MEDS: Senna/Docusate Sodium 1 Tablet 2 TABLET PO ×2 (05:37→16:59)
[2019-09-04] MEDS: DULoxetine Hcl 60 MG Capsule PO (05:37)
[2019-09-04] MEDS: Furosemide 20 MG Tablet 10 MG PO (05:37)
[2019-09-04] MEDS: Tolterodine Tartrate 2 MG CAP.SA PO (05:37)
[2019-09-04] MEDS: Acetaminophen 500 MG Tablet 1000 MG PO ×3 (05:38→21:30)
[2019-09-04] MEDS: Levothyroxine 125 MCG Tablet PO (05:38)
[2019-09-04] MEDS: Atorvastatin Calcium 10 MG Tablet PO (05:38)
[2019-09-04] MEDS: Losartan Potassium 50 MG Tablet PO (05:38)
[2019-09-04] MEDS: ALPRAZolam 0.5 MG Tablet 1 MG PO ×3 (05:41→21:29)
[2019-09-04] MEDS: oxyCODONE 5 MG Tablet 2.5 MG PO (08:19)
[2019-09-04] MEDS: Aspirin E.C. 81 MG Tablet PO (08:20)
--- NOTE | 2019-09-04 08:30 | NURSING ---
pt off unit to ortho appt w/ via WC
[2019-09-04 11:14] VITALS: O2SAT 94
--- NOTE | 2019-09-04 11:37 | NURSING ---
pt returned from appt, new orders for ES tylenol 500mg 2 tabs TID, oxy 5mg Q6h PRN, PT/OT orders, f/u in [address] Jose Guadalupe Gottlieb updated.
--- NOTE | 2019-09-04 13:24 | NURSING ---
this nurse pulled out xanax and tylenol 1000mg for pt, pt in therapy and wanted to wait until he was done with therapy in another 30 min.
[2019-09-04 15:48] VITALS: BP 128/49; PULSE 71; RESP 16; TEMP 36.9; O2SAT 93
[2019-09-04 21:27] VITALS: BP 132/57; PULSE 65; RESP 18; O2SAT 95
[2019-09-04] MEDS: oxyCODONE 5 MG Tablet PO (21:28)
[2019-09-04] MEDS: dilTIAZem CD 240 MG Capsule PO (21:29)
[2019-09-04] MEDS: Tamsulosin HCl 0.4 MG Capsule PO (21:29)
[2019-09-04] MEDS: Ferrous Sulfate 325 MG Tablet PO (21:29)
[2019-09-05 05:41] VITALS: BP 139/70; PULSE 67; O2SAT 95
[2019-09-05] MEDS: Senna/Docusate Sodium 1 Tablet 2 TABLET PO ×2 (05:45→17:17)
[2019-09-05] MEDS: oxyCODONE 5 MG Tablet PO ×3 (05:45→20:44)
[2019-09-05] MEDS: ALPRAZolam 0.5 MG Tablet 1 MG PO ×3 (05:45→20:43)
[2019-09-05] MEDS: Acetaminophen 500 MG Tablet 1000 MG PO ×3 (05:45→20:44)
[2019-09-05] MEDS: Furosemide 20 MG Tablet 10 MG PO (05:46)
[2019-09-05] MEDS: Losartan Potassium 50 MG Tablet PO (05:46)
[2019-09-05] MEDS: Tolterodine Tartrate 2 MG CAP.SA PO (05:46)
[2019-09-05] MEDS: Levothyroxine 125 MCG Tablet PO (05:46)
[2019-09-05] MEDS: DULoxetine Hcl 60 MG Capsule PO (05:46)
[2019-09-05] MEDS: Atorvastatin Calcium 10 MG Tablet PO (05:47)
[2019-09-05 06:53] VITALS: O2SAT 91
[2019-09-05] MEDS: Aspirin E.C. 81 MG Tablet PO (08:07)
[2019-09-05] MEDS: Polyethylene Glycol 3350 17 GM PACKET PO (10:57)
[2019-09-05 15:39] VITALS: BP 127/63; PULSE 63; RESP 16; TEMP 36.9; O2SAT 96
[2019-09-05] MEDS: dilTIAZem CD 240 MG Capsule PO (20:43)
[2019-09-05] MEDS: Ferrous Sulfate 325 MG Tablet PO (20:43)
[2019-09-05] MEDS: Tamsulosin HCl 0.4 MG Capsule PO (20:44)
[2019-09-06] MEDS: Atorvastatin Calcium 10 MG Tablet PO (05:42)
[2019-09-06] MEDS: Tolterodine Tartrate 2 MG CAP.SA PO (05:42)
[2019-09-06] MEDS: Losartan Potassium 50 MG Tablet PO (05:42)
[2019-09-06] MEDS: Furosemide 20 MG Tablet 10 MG PO (05:42)
[2019-09-06] MEDS: DULoxetine Hcl 60 MG Capsule PO (05:42)
[2019-09-06] MEDS: Senna/Docusate Sodium 1 Tablet 2 TABLET PO ×2 (05:43→16:23)
[2019-09-06] MEDS: Levothyroxine 125 MCG Tablet PO (05:43)
[2019-09-06] MEDS: Acetaminophen 500 MG Tablet 1000 MG PO ×3 (05:43→21:26)
[2019-09-06] MEDS: ALPRAZolam 0.5 MG Tablet 1 MG PO ×3 (05:46→21:32)
[2019-09-06] MEDS: Aspirin E.C. 81 MG Tablet PO (08:59)
[2019-09-06] MEDS: oxyCODONE 5 MG Tablet PO ×2 (11:47→21:24)
[2019-09-06 15:59] VITALS: BP 151/56; PULSE 73; RESP 16; TEMP 36.6; O2SAT 94
[2019-09-06] MEDS: Polyethylene Glycol 3350 17 GM PACKET PO (16:23)
[2019-09-06] MEDS: dilTIAZem CD 240 MG Capsule PO (21:26)
[2019-09-06] MEDS: Tamsulosin HCl 0.4 MG Capsule PO (21:26)
[2019-09-06] MEDS: Ferrous Sulfate 325 MG Tablet PO (21:28)
[2019-09-07] MEDS: ALPRAZolam 0.5 MG Tablet 1 MG PO ×3 (05:23→22:02)
[2019-09-07] MEDS: Senna/Docusate Sodium 1 Tablet 2 TABLET PO ×2 (05:24→17:28)
[2019-09-07] MEDS: Acetaminophen 500 MG Tablet 1000 MG PO ×3 (05:24→22:02)
[2019-09-07] MEDS: DULoxetine Hcl 60 MG Capsule PO (05:24)
[2019-09-07] MEDS: Furosemide 20 MG Tablet 10 MG PO (05:24)
[2019-09-07] MEDS: Tolterodine Tartrate 2 MG CAP.SA PO (05:24)
[2019-09-07] MEDS: Levothyroxine 125 MCG Tablet PO (05:24)
[2019-09-07] MEDS: Atorvastatin Calcium 10 MG Tablet PO (05:24)
[2019-09-07] MEDS: Losartan Potassium 50 MG Tablet PO (05:24)
[2019-09-07] MEDS: Polyethylene Glycol 3350 17 GM PACKET PO (05:24)
[2019-09-07] MEDS: oxyCODONE 5 MG Tablet PO (08:22)
[2019-09-07] MEDS: Aspirin E.C. 81 MG Tablet PO (08:23)
[2019-09-07 15:59] VITALS: BP 115/57; PULSE 69; RESP 18; TEMP 37.2; O2SAT 93
[2019-09-07 21:58] VITALS: BP 136/63; PULSE 64; RESP 18; O2SAT 95
[2019-09-07] MEDS: Tamsulosin HCl 0.4 MG Capsule PO (22:02)
[2019-09-07] MEDS: dilTIAZem CD 240 MG Capsule PO (22:03)
[2019-09-07] MEDS: Ferrous Sulfate 325 MG Tablet PO (22:03)
[2019-09-08 05:12] VITALS: BP 123/66; PULSE 59; RESP 20; O2SAT 94
[2019-09-08] MEDS: DULoxetine Hcl 60 MG Capsule PO (05:18)
[2019-09-08] MEDS: Tolterodine Tartrate 2 MG CAP.SA PO (05:18)
[2019-09-08] MEDS: Atorvastatin Calcium 10 MG Tablet PO (05:19)
[2019-09-08] MEDS: Furosemide 20 MG Tablet 10 MG PO (05:19)
[2019-09-08] MEDS: Senna/Docusate Sodium 1 Tablet 2 TABLET PO ×2 (05:20→17:30)
[2019-09-08] MEDS: Levothyroxine 125 MCG Tablet PO (05:20)
[2019-09-08] MEDS: Acetaminophen 500 MG Tablet 1000 MG PO ×3 (05:20→21:18)
[2019-09-08] MEDS: Polyethylene Glycol 3350 17 GM PACKET PO (05:24)
[2019-09-08] MEDS: ALPRAZolam 0.5 MG Tablet 1 MG PO ×3 (05:25→21:17)
[2019-09-08] MEDS: Losartan Potassium 50 MG Tablet PO (05:33)
[2019-09-08 05:59] LABS: Absolute Lymphocyte Count 1.75 X10^3/uL (0.83-4.51); Absolute Neutrophil Count 5.4 X10^3/uL (2.0-7.7); Basophil# 0.05 X10^3/uL; Basophil% 0.6 % (0-1); Eosinophil# 0.43 X10^3/uL; Eosinophils% 5.2 % (0-5); Hematocrit 34.3 % (40-54); Hemoglobin 11.4 g/dL (13.0-16.5); Lymphocyte # 1.75 X10^3/ul (4.0); Mean Corp Hgb Conc 33.2 g/dL (32-36); Mean Corpuscular Hgb 31.1 pg (27.0-32.0); Mean Corpuscular Volume 93.5 fL (80-94); Mean Platelet Vol. 9.1 fl (6.2-12.0); Monocyte% 8.4 % (0-10); NRBC Flagged by Analyzer 0 % (0-5); Neutrophil # 5.39 X10^3/uL (2.7-7.7); Neutrophil % 64.6 % (47-70); Platelet Count 315 K/mm3 (150-450); RBC Distribution Width SD 48.2 fl (35.1-43.9); Red Blood Count 3.67 M/mm3 (4.6-6.2); White Blood Count 8.3 K/mm3 (4.4-11.0)
[2019-09-08 06:44] LABS: Anion Gap 5 (5-15); BUN 37 mg/dL (7-18); BUN/Creat Ratio 29.1 RATIO (10-20); Calcium,Total 8.7 mg/dL (8.5-10.1); Chloride 104 mmol/L (98-107); Creatinine, Serum 1.27 mg/dL (0.70-1.30); EST Glomerular Filtration Rate 58 mL/min (>60); Est Glom Filt Rate - Afr Amer 70 mL/min (>60); Estimated Creatinine Clearance 50.23 ml/min; Glucose 92 mg/dL (74-106); Potassium 4.4 mmol/L (3.5-5.1); Sodium Level 136 mmol/L (136-145)
[2019-09-08] MEDS: Aspirin E.C. 81 MG Tablet PO (07:45)
[2019-09-08 12:30] VITALS: O2SAT 94
[2019-09-08 15:32] VITALS: BP 117/54; PULSE 78; RESP 24; TEMP 36.8; O2SAT 94
[2019-09-08 21:16] VITALS: BP 123/61; PULSE 71
[2019-09-08] MEDS: dilTIAZem CD 240 MG Capsule PO (21:17)
[2019-09-08] MEDS: Ferrous Sulfate 325 MG Tablet PO (21:18)
[2019-09-08] MEDS: Tamsulosin HCl 0.4 MG Capsule PO (21:18)
[2019-09-09 05:01] VITALS: BP 121/59; PULSE 64; RESP 18; TEMP 36.6; O2SAT 95
[2019-09-09] MEDS: Tolterodine Tartrate 2 MG CAP.SA PO (05:06)
[2019-09-09] MEDS: Levothyroxine 125 MCG Tablet PO (05:06)
[2019-09-09] MEDS: Polyethylene Glycol 3350 17 GM PACKET PO (05:06)
[2019-09-09] MEDS: Senna/Docusate Sodium 1 Tablet 2 TABLET PO ×2 (05:06→16:45)
[2019-09-09] MEDS: Acetaminophen 500 MG Tablet 1000 MG PO ×3 (05:06→21:34)
[2019-09-09] MEDS: ALPRAZolam 0.5 MG Tablet 1 MG PO ×3 (05:06→21:33)
[2019-09-09] MEDS: Furosemide 20 MG Tablet 10 MG PO (05:07)
[2019-09-09] MEDS: Atorvastatin Calcium 10 MG Tablet PO (05:07)
[2019-09-09] MEDS: Losartan Potassium 50 MG Tablet PO (05:07)
[2019-09-09] MEDS: DULoxetine Hcl 60 MG Capsule PO (05:07)
[2019-09-09] MEDS: oxyCODONE 5 MG Tablet PO ×2 (06:06→21:33)
[2019-09-09] MEDS: Aspirin E.C. 81 MG Tablet PO (08:00)
[2019-09-09 16:00] VITALS: BP 148/68; PULSE 77; RESP 17; TEMP 36.9; O2SAT 95
[2019-09-09] MEDS: dilTIAZem CD 240 MG Capsule PO (21:34)
[2019-09-09] MEDS: Tamsulosin HCl 0.4 MG Capsule PO (21:34)
[2019-09-09] MEDS: Ferrous Sulfate 325 MG Tablet PO (21:34)
[2019-09-10] MEDS: Acetaminophen 500 MG Tablet 1000 MG PO ×3 (05:42→21:16)
[2019-09-10] MEDS: ALPRAZolam 0.5 MG Tablet 1 MG PO ×3 (05:42→21:16)
[2019-09-10] MEDS: DULoxetine Hcl 60 MG Capsule PO (05:42)
[2019-09-10] MEDS: Senna/Docusate Sodium 1 Tablet 2 TABLET PO ×2 (05:42→17:39)
[2019-09-10] MEDS: Levothyroxine 125 MCG Tablet PO (05:43)
[2019-09-10] MEDS: Furosemide 20 MG Tablet 10 MG PO (05:43)
[2019-09-10] MEDS: Atorvastatin Calcium 10 MG Tablet PO (05:43)
[2019-09-10] MEDS: Losartan Potassium 50 MG Tablet PO (05:43)
[2019-09-10] MEDS: Tolterodine Tartrate 2 MG CAP.SA PO (05:43)
[2019-09-10] MEDS: Polyethylene Glycol 3350 17 GM PACKET PO (05:43)
[2019-09-10] MEDS: Aspirin E.C. 81 MG Tablet PO (08:15)
--- NOTE | 2019-09-10 15:00 | CASEMGMT ---
Social Work Spoke with patient and to notify them on insurance approving pt with NRD 09/13 and to anticipate [facility]. completed family therapy training on this date and feels comfortable with the pt discharging home. Pt requesting to DC 09/14. IDT and agreeable. Pt would like outpatient PT/OT at [facility] and a hemiwalker. Referrals made to outpatient and DME. Plan: DC home with 09/14 with outpatient PT/OT at [facility] and [facility] for a hemiwalker. Matilda Carias, MANAGER MALL BUSINESS BANKER
[2019-09-10 16:00] VITALS: BP 116/55; PULSE 62; RESP 16; TEMP 36.9; O2SAT 95
--- NOTE | 2019-09-10 20:47 | PCM.DC ---
- Discharge Diagnoses Current Active Problems: Current Active and Chronic Problems (This Medical Record has been edited. 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 Weight Bearing Status: Weight bearing as tolerated Call your doctor if you observe: Fever of 101 or Higher, Inability to urinate, Inability to have a bowel movement, Shortness of breath, Chest pain, Uncontrolled pain Allergies/Adverse Reactions: Allergies tramadol Allergy (Intermediate, Verified 08/21/19 09:21) Unknown Antihistamines - Alkylamine Allergy (Verified 08/21/19 09:21) kidney failure Penicillins Allergy (Verified 08/21/19 09:21) Unknown Sulfa (Sulfonamide Antibiotics) Allergy (Verified 08/21/19 09:21) Unknown Medications to take at Discharge Diltiazem CD [Cardizem CD] 240 mg PO QHS 08/05/19 Duloxetine HCl 60 mg PO DAILY 08/05/19 Ferrous Sulfate 325 mg PO QHS 08/05/19 Levothyroxine Sodium [Synthroid] 125 mcg PO DAILY 08/05/19 Losartan Potassium [Cozaar] 50 mg PO DAILY 08/05/19 Simvastatin [Zocor] 20 mg PO DAILY 08/05/19 Tamsulosin HCl [Flomax] 0.4 mg PO QHS 08/05/19 Tolterodine Tartrate [Detrol LA] 2 mg PO DAILY 08/05/19 furosemide 20 mg tablet 10 mg PO DAILY tab 08/06/19 Acetaminophen [Tylenol] 1,000 mg PO Q8 08/24/19 Senna/Docusate Sodium [Senokot-S] 2 tab PO BID 08/24/19 ALPRAZolam [Xanax] 1 mg PO TID #90 tab 09/10/19 Oxycodone [Oxyir] 5 mg PO Q6H PRN PRN 7 Days #28 tablet 09/10/19 Polyethylene Glycol 3350 [Miralax] 17 gm PO DAILY #30 packet 12/03/19 The following prescriptions were given: Polyethylene Glycol 3350 [Miralax] 17 gm PO DAILY #30 packet Transmission Status: Pending to [facility] Oxycodone [Oxyir] 5 mg PO Q6H PRN PRN 7 Days #28 tablet PRN Reason: Pain Score 6-10/10 Transmission Status: Sent to [facility] ALPRAZolam [Xanax] 1 mg PO TID #90 tab Transmission Status: Sent to [facility] Primary Care Physician: Niecy Moe NP-C [Primary Care Provider] - Please follow up with your Primary Care Physician in: 1 week. Test Results: Test results from this visit will be discussed in further detail at your follow-up appointment, if applicable. Please Follow Up With: Segundo Garduno PA-C When: 2 weeks. Proposed Discharge Date: 09/14/19
--- NOTE | 2019-09-10 20:50 | DS.PCM_ITS ---
Discharge Date and Diagnosis - Problem List Patient Problems: Active and Suspected Problems (This Medical Record has been edited. 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 Action required.) Osteoarthritis (Chronic) Hypertension (Chronic) Edema (Chronic) Iron deficiency anemia (Chronic) Overactive bladder (Chronic) Stage III chronic kidney disease (Chronic) Anxiety and depression (Chronic) Hyperlipidemia (Chronic) Benign prostatic hyperplasia (Chronic) Hypothyroidism (Chronic) JONAS (obstructive sleep apnea) (Chronic) Essential hypertension (Chronic) Hospital Course and Treatment Imaging Results: 08/28/19 12:08 Diet: Cardiac/Low Cholesterol Is pt able to select menu?: No Diet Comments: LOW SODIUM Operations: None Procedures: None Summary of Care Provided: The patient is a 79 year old Male with below past medical history hospitalized for right reverse total shoulder replacement 08/21/[address] Gottlieb, admitted to TCU with debility, here for rehabilitation, strengthening, prior to discharge home with . Discharge home with , outpatient PT/OT at [facility] for hemiwalker. Patient Problems: Active and Suspected Problems (This Medical Record has been edited. 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) - Physical Exam Vitals/I&O's: Vital Signs Temp Pulse Resp BP Pulse Ox 98.5 F 62 16 116/55 L 95 09/10/19 16:00 09/10/19 16:00 09/10/19 16:00 09/10/19 16:00 09/10/19 16:00 Oxygen Flow Rate (L/min) 0.5 Oxygen Delivery Method Nasal Cannula Weight: 112.151 kg Body Mass Index (BMI) 35.0 Intake and Output for Last 24 Hours 09/08/19 09/09/19 09/10/19 23:59 23:59 23:59 Intake Total 1120 / 1120 1080 / 1080 1100 / 1100 Output Total 275 / 275 Balance 845 / 845 1080 / 1080 1100 / 1100 Current Medications Acetaminophen (Tylenol) 1,000 mg PO Q8 [facility] Last Admin: 09/10/19 14:34 Dose: 1,000 mg Documented by: Alprazolam (Xanax) 1 mg PO TID [facility] Last Admin: 09/10/19 14:34 Dose: 1 mg Documented by: Aspirin (Ecotrin) 81 mg PO DAILY@0800 [facility] Last Admin: 09/10/19 08:15 Dose: 81 mg Documented by: Atorvastatin Calcium (Lipitor) 10 mg PO DAILY [facility] Last Admin: 09/10/19 05:43 Dose: 10 mg Documented by: Bisacodyl (Dulcolax) 10 mg PO DAILY PRN PRN Reason: Constipation Diltiazem HCl (Cardizem Cd) 240 mg PO QHS [facility] Last Admin: 09/09/19 21:34 Dose: 240 mg Documented by: Duloxetine HCl (Cymbalta) 60 mg PO DAILY [facility] Last Admin: 09/10/19 05:42 Dose: 60 mg Documented by: Ferrous Sulfate (Ferrous Sulfate) 325 mg PO QHS [facility] Last Admin: 09/09/19 21:34 Dose: 325 mg Documented by: Furosemide (Lasix) 10 mg PO DAILY [facility] Last Admin: 09/10/19 05:43 Dose: 10 mg Documented by: Levothyroxine Sodium (Synthroid) 125 mcg PO DAILY [facility] Last Admin: 09/10/19 05:43 Dose: 125 mcg Documented by: Losartan Potassium (Cozaar) 50 mg PO DAILY [facility] Last Admin: 09/10/19 05:43 Dose: 50 mg Documented by: Oxycodone HCl (Oxyir) 5 mg PO Q6H PRN PRN PRN Reason: Pain Score 6-10/10 Last Admin: 09/09/19 21:33 Dose: 5 mg Documented by: Polyethylene Glycol (Miralax) 17 gm PO DAILY [facility] Last Admin: 09/10/19 05:43 Dose: 17 gm Documented by: Senna/Docusate Sodium (Senokot-S, Loretta-Colace) 2 tablet PO BID [facility] Last Admin: 09/10/19 17:39 Dose: 2 tablet Documented by: Tamsulosin HCl (Flomax) 0.4 mg PO QHS [facility] Last Admin: 09/09/19 21:34 Dose: 0.4 mg Documented by: Tolterodine Tartrate (Detrol La) 2 mg PO DAILY [facility] Last Admin: 09/10/19 05:43 Dose: 2 mg Documented by: Discharge Diet: No Restrictions Discharge Activity: Return to Normal Activity, May Shower, Use Walker - Hemiwalker. Weight Bearing Status: Weight bearing as tolerated Call your doctor if you observe: Fever of 101 or Higher, Inability to urinate, Inability to have a bowel movement, Shortness of breath, Chest pain, Uncontrolled pain Home Medications: Medications to take at Discharge Diltiazem CD [Cardizem CD] 240 mg PO QHS 08/05/19 Duloxetine HCl 60 mg PO DAILY 08/05/19 Ferrous Sulfate 325 mg PO QHS 08/05/19 Levothyroxine Sodium [Synthroid] 125 mcg PO DAILY 08/05/19 Losartan Potassium [Cozaar] 50 mg PO DAILY 08/05/19 Simvastatin [Zocor] 20 mg PO DAILY 08/05/19 Tamsulosin HCl [Flomax] 0.4 mg PO QHS 08/05/19 Tolterodine Tartrate [Detrol LA] 2 mg PO DAILY 08/05/19 furosemide 20 mg tablet 10 mg PO DAILY tab 08/06/19 Acetaminophen [Tylenol] 1,000 mg PO Q8 08/24/19 Senna/Docusate Sodium [Senokot-S] 2 tab PO BID 08/24/19 ALPRAZolam [Xanax] 1 mg PO TID #90 tab 09/10/19 Oxycodone [Oxyir] 5 mg PO Q6H PRN PRN 7 Days #28 tablet 09/10/19 Polyethylene Glycol 3350 [Miralax] 17 gm PO DAILY #30 packet 09/10/19 Following Prescrptions Were Given to Patient: Polyethylene Glycol 3350 [Miralax] 17 gm PO DAILY #30 packet Transmission Status: Pending to [facility] Oxycodone [Oxyir] 5 mg PO Q6H PRN PRN 7 Days #28 tablet PRN Reason: Pain Score 6-10/10 Transmission Status: Sent to [facility] ALPRAZolam [Xanax] 1 mg PO TID #90 tab [facility] Primary Care Physician: Niecy Moe NP-C [Primary Care Provider] - Please follow up with your Primary Care Physician in: 1 week. Please Follow Up With: Segundo Garduno PA-C When: 2 weeks. Disposition: Home Minutes spent on discharge:: 35 Patient Condition:: Stable Medical Necessity - Tobacco Use Smoking Status: Never smoker Tobacco Use: Non-smoker Meaningful Use Info Meaningful Use Diagnoses (Choose all that apply): None applicable
[2019-09-10] MEDS: Tamsulosin HCl 0.4 MG Capsule PO (21:16)
[2019-09-10] MEDS: dilTIAZem CD 240 MG Capsule PO (21:17)
[2019-09-10] MEDS: Ferrous Sulfate 325 MG Tablet PO (21:17)
[2019-09-10] MEDS: oxyCODONE 5 MG Tablet PO (21:20)
[2019-09-11] MEDS: Tolterodine Tartrate 2 MG CAP.SA PO (05:08)
[2019-09-11] MEDS: DULoxetine Hcl 60 MG Capsule PO (05:08)
[2019-09-11] MEDS: Furosemide 20 MG Tablet 10 MG PO (05:08)
[2019-09-11] MEDS: Senna/Docusate Sodium 1 Tablet 2 TABLET PO ×2 (05:08→16:37)
[2019-09-11] MEDS: Polyethylene Glycol 3350 17 GM PACKET PO (05:08)
[2019-09-11] MEDS: Losartan Potassium 50 MG Tablet PO (05:08)
[2019-09-11] MEDS: Levothyroxine 125 MCG Tablet PO (05:08)
[2019-09-11] MEDS: Atorvastatin Calcium 10 MG Tablet PO (05:08)
[2019-09-11] MEDS: ALPRAZolam 0.5 MG Tablet 1 MG PO ×3 (05:09→21:24)
[2019-09-11] MEDS: Acetaminophen 500 MG Tablet 1000 MG PO ×3 (05:09→21:24)
[2019-09-11 06:48] VITALS: O2SAT 96
[2019-09-11] MEDS: Aspirin E.C. 81 MG Tablet PO (08:31)
[2019-09-11 15:59] VITALS: BP 129/57; PULSE 75; RESP 17; TEMP 37.2; O2SAT 93
[2019-09-11] MEDS: oxyCODONE 5 MG Tablet PO (16:36)
[2019-09-11] MEDS: dilTIAZem CD 240 MG Capsule PO (21:24)
[2019-09-11] MEDS: Tamsulosin HCl 0.4 MG Capsule PO (21:24)
[2019-09-11] MEDS: Ferrous Sulfate 325 MG Tablet PO (21:24)
[2019-09-12] MEDS: Senna/Docusate Sodium 1 Tablet 2 TABLET PO ×2 (05:13→16:33)
[2019-09-12] MEDS: Tolterodine Tartrate 2 MG CAP.SA PO (05:13)
[2019-09-12] MEDS: Polyethylene Glycol 3350 17 GM PACKET PO (05:13)
[2019-09-12] MEDS: ALPRAZolam 0.5 MG Tablet 1 MG PO ×3 (05:13→21:22)
[2019-09-12] MEDS: Acetaminophen 500 MG Tablet 1000 MG PO ×3 (05:13→21:22)
[2019-09-12] MEDS: Furosemide 20 MG Tablet 10 MG PO (05:13)
[2019-09-12] MEDS: Losartan Potassium 50 MG Tablet PO (05:13)
[2019-09-12] MEDS: Levothyroxine 125 MCG Tablet PO (05:13)
[2019-09-12] MEDS: DULoxetine Hcl 60 MG Capsule PO (05:13)
[2019-09-12] MEDS: Atorvastatin Calcium 10 MG Tablet PO (05:14)
[2019-09-12 05:21] VITALS: PULSE 79; O2SAT 96
[2019-09-12] MEDS: Aspirin E.C. 81 MG Tablet PO (08:23)
--- NOTE | 2019-09-12 14:21 | MDS.RN ---
Pain interview for leslie 09/14/19 completed.
[2019-09-12 15:01] VITALS: BP 124/59; PULSE 72; RESP 18; TEMP 36.4; O2SAT 94
[2019-09-12] MEDS: Ferrous Sulfate 325 MG Tablet PO (21:22)
[2019-09-12] MEDS: dilTIAZem CD 240 MG Capsule PO (21:22)
[2019-09-12] MEDS: Tamsulosin HCl 0.4 MG Capsule PO (21:22)
[2019-09-12] MEDS: oxyCODONE 5 MG Tablet PO (23:07)
[2019-09-13] MEDS: Senna/Docusate Sodium 1 Tablet 2 TABLET PO ×2 (05:54→17:16)
[2019-09-13] MEDS: Tolterodine Tartrate 2 MG CAP.SA PO (05:54)
[2019-09-13] MEDS: Losartan Potassium 50 MG Tablet PO (05:54)
[2019-09-13] MEDS: DULoxetine Hcl 60 MG Capsule PO (05:54)
[2019-09-13] MEDS: Levothyroxine 125 MCG Tablet PO (05:54)
[2019-09-13] MEDS: Atorvastatin Calcium 10 MG Tablet PO (05:54)
[2019-09-13] MEDS: ALPRAZolam 0.5 MG Tablet 1 MG PO ×3 (05:54→21:20)
[2019-09-13] MEDS: Furosemide 20 MG Tablet 10 MG PO (05:54)
[2019-09-13] MEDS: Acetaminophen 500 MG Tablet 1000 MG PO ×3 (05:54→21:22)
[2019-09-13] MEDS: Polyethylene Glycol 3350 17 GM PACKET PO (05:55)
[2019-09-13 06:48] VITALS: O2SAT 97
[2019-09-13] MEDS: Aspirin E.C. 81 MG Tablet PO (07:52)
--- NOTE | 2019-09-13 11:10 | NURSING ---
functional abilities and goal per therapy notes/ head nurse
--- NOTE | 2019-09-13 12:01 | CASEMGMT ---
Social Work BIMS and PHQ-9 completed for MDS assessment. Matilda Carias, PROCESS MAINTENANCE TECHNICIAN LOCKSTITCH BACK MAKER
[2019-09-13 15:45] VITALS: BP 127/62; PULSE 63; RESP 16; TEMP 36.9; O2SAT 94
[2019-09-13] MEDS: Tamsulosin HCl 0.4 MG Capsule PO (21:21)
[2019-09-13] MEDS: Ferrous Sulfate 325 MG Tablet PO (21:21)
[2019-09-13] MEDS: dilTIAZem CD 240 MG Capsule PO (21:21)
[2019-09-13] MEDS: oxyCODONE 5 MG Tablet PO (22:09)
[2019-09-14] MEDS: Losartan Potassium 50 MG Tablet PO (05:23)
[2019-09-14] MEDS: Acetaminophen 500 MG Tablet 1000 MG PO (05:23)
[2019-09-14] MEDS: ALPRAZolam 0.5 MG Tablet 1 MG PO (05:23)
[2019-09-14] MEDS: Tolterodine Tartrate 2 MG CAP.SA PO (05:24)
[2019-09-14] MEDS: Levothyroxine 125 MCG Tablet PO (05:24)
[2019-09-14] MEDS: Atorvastatin Calcium 10 MG Tablet PO (05:24)
[2019-09-14] MEDS: Furosemide 20 MG Tablet 10 MG PO (05:24)
[2019-09-14] MEDS: Senna/Docusate Sodium 1 Tablet 2 TABLET PO (05:24)
[2019-09-14] MEDS: DULoxetine Hcl 60 MG Capsule PO (05:24)
[2019-09-14 06:46] VITALS: O2SAT 96
[2019-09-14] MEDS: Aspirin E.C. 81 MG Tablet PO (08:11)
[2019-09-14 11:30] VITALS: BP 118/72; PULSE 70; RESP 18; TEMP 36.8; O2SAT 95
== END 2019-09-14 10:10 | disposition home or self-care (01) | DRG 561 ==
PROVIDERS: Admitting Provider Family Medicine Geriatric Medicine; Family Provider Nurse Practitioner Primary Care; PCP Nurse Practitioner Primary Care; Referring Provider Family Medicine Geriatric Medicine; Visit Provider Family Medicine Geriatric Medicine
DX: Z47.1 Aftercare following joint replacement surgery (principal); Z96.611 Presence of right artificial shoulder joint; G47.33 Obstructive sleep apnea (adult) (pediatric); E78.5 Hyperlipidemia, unspecified; M19.90 Unspecified osteoarthritis, unspecified site; N40.0 Benign prostatic hyperplasia without lower urinary tract symptoms; I12.9 Hypertensive chronic kidney disease with stage 1 through stage 4 chronic kidney disease, or unspecified chronic kidney disease; N18.3 Chronic kidney disease, stage 3 (moderate); J44.9 Chronic obstructive pulmonary disease, unspecified; I73.9 Peripheral vascular disease, unspecified; F32.9 Major depressive disorder, single episode, unspecified; F41.9 Anxiety disorder, unspecified; D50.9 Iron deficiency anemia, unspecified; E03.9 Hypothyroidism, unspecified; N32.81 Overactive bladder
CPT/HCPCS: 36415; 80048; 85025; 97110; 97116; 97162; 97166; 97530; 97535; 97542; 97802; 97803

== ENCOUNTER → 2019-12-19 | Outpatient (CLI) | payer MEDICARE, SELFPAY ==
[2019-08-08 09:13] VITALS: BMI 34.7
[2019-08-24 15:36] VITALS: BMI 35.0
--- NOTE | 2019-12-19 08:56 | ECHOCS_ITS ---
Reason For Study: Abnormal EKG Procedure This was a 2D Doppler, Color Flow transthoracic echocardiogram. Technically difficult study due to patients body habitus. Contrast injection performed. Exam performed in department. Left Ventricle Normal LV size. The estimated ejection fraction is 65 %. Normal diastology for age. No regional wall motion abnormalities noted. Right Ventricle Normal RV size. Normal systolic function. Atria The left atrium is mildly enlarged. Normal right atrium. Normal atrial septum. Mitral Valve There is moderate mitral annular calcification. There is no mitral valve stenosis. No mitral valve insufficiency. Tricuspid Valve There is no tricuspid stenosis. Trivial tricuspid valve insufficiency. Pulmonary artery systolic pressure is 30 mmHg. Aortic Valve Aortic sclerosis, no stenosis. There is no aortic stenosis. No aortic valve insufficiency. Pulmonic Valve There is no pulmonic valvular stenosis. No pulmonic valve insufficiency. Great Vessels Normal aortic root. Pericardium/Pleural No pericardial effusion. Medication 22 gauge I.V. with prn adaptor inserted into right arm. Diluted definity 2ml given slow IV push to enhance endocardial definition. Performed a rapid injection of agitated mix of 9 cc saline and 1cc air to assess for atrial septal defect. MMode/2D Measurements & Calculations LVIDd: 4.1 cm IVSd: 1.4 cm LA dimension: 4.2 cm LVIDs: 2.5 cm LVPWd: 1.1 cm RVDd: 4.0 cm FS: 39.0 % LAV(MOD-bp): 60.0 ml LA A4 area: 21.8 cm2 RA A4 area: 15.0 cm2 LAV(MOD-bp) Indexed: 26.0 ml/m2 LAV(MOD-sp2): 63.8 ml LAV(MOD-sp4): 56.5 ml Time Measurements MV dec time: 0.30 sec Doppler Measurements & Calculations MV E max reymundo: 58.9 cm/sec Lat Peak E' Reymundo: 7.3 cm/sec Med Peak E' Reymundo: 5.5 cm/sec MV A max reymundo: 144.6 cm/sec E/E' lat: 8.1 E/E' med: 10.7 MV E/A: 0.41 MV V2 max: 148.3 cm/sec MV P1/2t max reymundo: 62.6 cm/sec Ao V2 max: 144.5 cm/sec MV max P.8 mmHg MV P1/2t: 102.8 msec Ao max P.3 mmHg MV V2 mean: 66.1 cm/sec MV dec slope: 178.3 cm/sec2 MV mean P.2 mmHg MV V2 VTI: 27.8 cm MVA(P1/2t): 2.1 cm2 LV V1 max: 102.0 cm/sec PA V2 max: 114.6 cm/sec TR max reymundo: 276.9 cm/sec LV V1 max P.2 mmHg TR max P.7 mmHg Interpretation Summary The study was technically difficult. Contrast injection was performed. The estimated ejection fraction is 65 %. Trivial tricuspid valve insufficiency. The study was technically difficult. Contrast injection was performed. Ordering Physician: [place] Referring Physician: Niecy Moe Performed By: Agustin Olmos, MARJAN
== END | disposition home or self-care (01) ==
LOC: CVS 08:56
PROVIDERS: Family Provider Nurse Practitioner Primary Care; PCP Nurse Practitioner Primary Care; Referring Provider Specialist; Visit Provider Specialist
DX: R94.31 Abnormal electrocardiogram [ECG] [EKG] (principal)
CPT/HCPCS: 93306; Q9957; A4216; C8929

== ENCOUNTER → 2020-05-22 | Outpatient (CLI) | payer MEDICARE, SELFPAY ==
[2020-01-15 10:00] VITALS: BMI 34.4
--- NOTE | 2020-05-22 13:40 | NEURO_ITS ---
NCS and/or EMG Patient Report Ordering Doctor: Duke Garduno DATE OF SERVICE: 05/22/20 Indication: Persistent numbness in the fifth digit of the right hand. Intermittent numbness of the remaining fingers, predominantly throughout the night. Evaluate for entrapment neuropathy in the right upper extremity. Findings: Nerve conduction studies were performed in the right upper extremity. The right median motor study recording the abductor pollicis brevis showed a reduced amplitude, prolonged distal latency and slowed conduction velocity. The right median palmar study demonstrated normal amplitude, prolonged latency and markedly slowed conduction velocity. The right ulnar motor study recording the abductor digiti minimi showed a reduced amplitude, normal distal latency and borderline conduction velocity. No conduction block or focal slowing was present across the elbow. The right median sensory response recording digit two showed a reduced amplitude, prolonged latency and markedly slowed conduction velocity. The right ulnar sensory response recording digit five showed a reduced amplitude, prolonged latency and slowed conduction velocity. The right radial sensory response recording over the extensor snuff box showed a normal amplitude, latency and conduction velocity. Needle EMG of the right upper extremity muscles was performed. Slight active denervation was seen in first dorsal interosseous muscle. Motor units were large amplitude, long duration and mildly polyphasic with slightly reduced rec ruitment in the first dorsal interosseous. Motor units were large amplitude, long duration and mildly polyphasic with slightly reduced recruitment in the abductor pollicis brevis. The other examined muscles including deltoid, triceps, flexor digitorum profundus and extensor indices revealed normal motor unit morphology, activation and recruitment patterns. Impression: This is an abnormal study. 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 In addition, there is electrophysiologic evidence suggestive of a non- localizable right ulnar neuropathy. If available, a neuromuscular ultrasound of the right upper extremity could be useful to better localize the ulnar nerve lesion. Finally, the diffusely slowed conduction velocities could be the product of reduced temperature in the limb, however, and underlying peripheral polyneuro hilario cannot be excluded by this study. This possibility was not fully investigated as it was not the indication for this particular examination. Barrett Knowles D.O.
== END | disposition home or self-care (01) ==
LOC: PSN 11:58
PROVIDERS: PCP Nurse Practitioner Primary Care; Referring Provider Physician Assistant Surgical; Visit Provider Physician Assistant Surgical
DX: R20.2 Paresthesia of skin (principal)
CPT/HCPCS: 95886; 95910

== ENCOUNTER 2020-11-05 09:45 | Outpatient (RCR) | payer MEDICARE, SELFPAY ==
[2020-01-15 10:00] VITALS: BMI 34.4
== END 2020-11-05 23:59 ==
LOC: IMMUN 09:45
PROVIDERS: PCP Family Medicine; Visit Provider Family Medicine
DX: Z23 Encounter for immunization (principal)
CPT/HCPCS: 0011A; 0012A; 91301

== ENCOUNTER 2021-04-16 22:51 | Observation (INO) | payer MEDICARE, SELFPAY ==
[2020-01-15 10:00] VITALS: BMI 34.4
[2021-04-16 22:52] VITALS: BP 170/90; PULSE 69; RESP 19; TEMP 36.7; O2SAT 92; BMI 34.2
[2021-04-16 22:58] VITALS: O2SAT 96
--- NOTE | 2021-04-16 22:58 | EKG12_ITS ---
Test Reason : NEURO Blood Pressure : / mmHG Vent. Rate : 060 BPM Atrial Rate : 060 BPM P-R Int : 224 ms QRS Dur : 126 ms QT Int : 448 ms P-R-T Axes : 031 -14 -07 degrees QTc Int : 448 ms Sinus rhythm with 1st degree A-V block Right bundle branch block Abnormal ECG Confirmed by JILL CRUZ, FIDE ([id number]), video effects editor KAMI CAMPOS ([id number]) on 04/19/2021 1:16:31 PM Referred By: BB Confirmed By:FIDE MELCHOR MD
[2021-04-16 23:02] VITALS: BMI 34.2
--- NOTE | 2021-04-16 23:10 | RAD_ITS ---
STUDY: X-RAY CHEST REASON FOR EXAM: Male, 81 years old. Neuro deficit, acute, stroke suspected TECHNIQUE: Single AP portable view of the chest. COMPARISON: None. FINDINGS: Lungs are mildly hypoinflated. No acute airspace disease. There is no demonstrated pleural abnormality. There is mild cardiac enlargement. Normal mediastinum and christelle. Normal visualized pulmonary arteries. Normal visualized aortic arch and descending thoracic aorta. Normal visualized thoracic spine. Right shoulder arthroplasty is noted. There is no demonstrated abnormality of the visualized soft tissue structures of the upper abdomen. RAD/Chest 1 View IMPRESSION: No acute cardiopulmonary disease Electronically Signed: Tino Workman DO at 23:48 EDT Tel , Service support ,
--- NOTE | 2021-04-16 23:10 | CT_ITS ---
STUDY: CT HEAD STROKE PROTOCOL W/O CONTRAST INJECTION REASON FOR EXAM: Male, 81 years old. Neuro deficit, acute, stroke suspected RADIATION DOSAGE (If Supplied By Facility): CTDIvol = ( ) mGy, DLP = ( ) mGycm TECHNIQUE: Transaxial CT imaging of the brain was performed without administration of intravenous contrast material. Individualized dose optimization techniques were used for this CT. COMPARISON: No relevant priors. FINDINGS: Normal soft tissue structures. Normal calvarium. There is mild cerebral atrophy with widening of the extra-axial spaces and ventricular dilatation. There are areas of decreased attenuation within the white matter tracts of the supratentorial brain, consistent with microvascular disease changes. Normal basal ganglia and thalami. Normal brainstem. There is mild cerebellar atrophy. There is no intracranial hemorrhage. There are no findings of an acute ischemic infarction. Normal visualized paranasal sinuses. ASPECT score: CT/STROKE Brain/Head without Cont IMPRESSION: No acute intracranial pathology. N.B. : The above Results were Read Back by Tino Workman DO to Dr. Henok Faulkner MD, and understanding confirmed on 04/16/2021 23:23:03 (ET). Electronically Signed: Tino Workman DO at 23:24 EDT Tel , Service support ,
[2021-04-16 23:12] LABS: Absolute Lymphocyte Count 2.13 X10^3/uL (0.83-4.51); Absolute Neutrophil Count 5.3 X10^3/uL (2.0-7.7); Basophil# 0.05 X10^3/uL; Basophil% 0.6 % (0-1); Eosinophil# 0.36 X10^3/uL; Eosinophils% 4.2 % (0-5); Hematocrit 36.6 % (40-54); Hemoglobin 12.1 g/dL (13.0-16.5); Lymphocyte # 2.13 X10^3/ul (0.83-4.51); Lymphocyte % 24.9 % (19-41); Mean Corp Hgb Conc 33.1 g/dL (32-36); Mean Corpuscular Hgb 31.4 pg (27.0-32.0); Mean Corpuscular Volume 95.1 fL (80-94); Mean Platelet Vol. 8.7 fl (6.2-12.0); Monocyte# 0.64 X10^3/uL; Monocyte% 7.5 % (0-10); NRBC Flagged by Analyzer 0 % (0-5); Neutrophil # 5.33 X10^3/uL (2.7-7.7); Neutrophil % 62.2 % (47-70); Platelet Count 272 K/mm3 (150-450); RBC Distribution Width CV 14.7 % (11.6-14.6); RBC Distribution Width SD 51.4 fl (35.1-43.9); Red Blood Count 3.85 M/mm3 (4.6-6.2); White Blood Count 8.6 K/mm3 (4.4-11.0)
[2021-04-16 23:16] LABS: International Normalized Ratio 1.1; Partial Thromboplast Time 29.8 Seconds (24.1-36.2); Prothrombin Time (Protime)PT. 13.4 SECONDS (11.7-14.9)
[2021-04-16 23:26] LABS: Anion Gap 5 (5-15); BUN 23 mg/dL (7-18); BUN/Creat Ratio 16.3 RATIO (10-20); Calcium,Total 8.8 mg/dL (8.5-10.1); Chloride 98 mmol/L (98-107); Creatinine, Serum 1.41 mg/dL (0.70-1.30); EST Glomerular Filtration Rate 51 mL/min (>60); Est Glom Filt Rate - Afr Amer 62 mL/min (>60); Estimated Creatinine Clearance 43.76 ml/min; Glucose 90 mg/dL (74-106); Potassium 4.6 mmol/L (3.5-5.1); Sodium Level 133 mmol/L (136-145); Troponin-I HS 8.2 pg/mL (3.0-78.5)
--- NOTE | 2021-04-16 23:35 | EDS_ITS ---
HPI History of Present Illness Chief Complaint: Neuro S/Sx Informant: patient and spouse/S.O. Onset/Context/Timing Onset: Weeks (1) Context: Gradual Onset Timing: Continuous Quality and Location: Positive for Slurred Speech (no other sx) Current Severity: Moderate Maximum Severity: Moderate Worsened by: unk Relieved by: nothing Associated Symptoms Associated Symptoms: Negative for Headache, Nausea, Vomiting and Chest Pain Narrative Narrative: Patient states he has noticed abnormal slurred speech for the past week. This morning he woke up and it was a little worse and progressively got worse throughout the day. He denies any pain in his mouth or swelling of tongue or throat or any other symptoms in that area, he just states it is difficult to say what he is trying to say to his . He denies any changes in sensation, vision, or strength. 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 All of that is stable. No recent illness. He is on no anticoagulation or antiplatelets but states she started taking aspirin a week ago since this started. [facility] Medical History (Updated 04/17/21 @ 00:[address] Henok Faulkner MD) Anxiety and depression BPH (benign prostatic hyperplasia) CKD (chronic kidney disease), stage III COPD (chronic obstructive pulmonary disease) Essential hypertension Hypothyroidism Neuropathy JONAS (obstructive sleep apnea) PVD (peripheral vascular disease) Vitamin D deficiency Home Medications diltiazem HCl 240 mg PO QHS 08/05/19 [History Last Taken 08/20/19] ferrous sulfate 325 mg PO QHS 08/05/19 [History Last Taken 08/20/19] levothyroxine 125 mcg PO DAILY 08/05/19 [History Last Taken 08/20/19] simvastatin 20 mg PO DAILY 08/05/19 [History Last Taken 08/20/19] tamsulosin 0.4 mg PO QHS 08/05/19 [History Last Taken 08/20/19] furosemide 20 mg tablet 10 mg PO DAILY tab 08/06/19 [History Last Taken 08/20/19] acetaminophen 1,000 mg PO Q8 08/24/19 [History Last Taken Unknown] duloxetine 60 mg capsule,delayed release 120 mg PO DAILY cap 01/15/20 [History Last Taken Unknown] gabapentin 100 mg capsule 300 mg PO TID 01/15/20 [History Last Taken Unknown] multivitamin 1 tab PO DAILY 01/15/20 [History Last Taken Unknown] olanzapine 5 mg tablet 2.5 mg PO DAILY 01/15/20 [History Last Taken Unknown] tolterodine 2 mg capsule,extended release 24 hr 4 mg PO BID cap 01/15/20 [History Last Taken Unknown] alprazolam 1 mg tablet 0.25 mg PO TID #90 tab 07/16/20 [Rx Last Taken Unknown] albuterol sulfate 20 puff INHALATION Q6H PRN PRN 04/16/21 [History Last Taken Unknown] tmettnyaeb-hcymrlpjtxwhw-eejz 1 - 2 tab DAILY PRN 04/16/21 [History Last Taken Unknown] losartan 100 mg DAILY 04/16/21 [History Last Taken Unknown] paroxetine HCl 30 mg PO DAILY 04/16/21 [History Last Taken Unknown] Allergy/AdvReac Type Severity Reaction Status Date / Time tramadol Allergy Intermediate Unknown Verified 01/15/20 10:00 Antihistamines - Alkylamine Allergy kidney Verified 01/15/20 10:00 failure Penicillins Allergy Unknown Verified 01/15/20 10:00 Sulfa (Sulfonamide Allergy Unknown Verified 01/15/20 10:00 Antibiotics) Family History Father Cancer prostate Sister ALS (amyotrophic lateral sclerosis) Surgical History History of foot surgery History of hand surgery History of hernia surgery History of partial amputation of toe of left foot History of rotator cuff surgery History of spinal fusion History of total hip replacement Hx of LASIK Social History Smoking Status: Never smoker alcohol intake: never substance use type: other details: Previous prescription medication abuse, Stopped age 58 caffeine: Yes Type: coffee Number of servings: 1 ROS ROS ED Constitutional Constitutional ED: Denies chills or fever(s) Eyes Eyes: Denies change in vision or diplopia ENT ENT ED: Denies rhinorrhea or sore throat Cardiovascular Cardiovascular: Denies chest pain or palpitations Respiratory/Chest Respiratory/Chest: Denies cough or dyspnea Gastrointestinal Gastrointestinal: Denies abdominal pain, diarrhea, nausea or vomiting Genitourinary Genitourinary ED: Denies dysuria or hematuria Musculoskeletal Musculoskeletal: Denies back pain or neck pain Integumentary Denies abscess or rash Neurologic Neurologic: Reports as per HPI and numbness; Denies headache(s) or weakness Psychiatric Psychiatric: Denies anxiety or suicidal thoughts EXAM Physical Exam Const Vital Signs: 04/16/21 22:52 04/16/21 22:58 04/16/21 23:51 Temperature 98.1 F Temperature Source Temporal Pulse Rate 69 63 Respiratory Rate 19 H 24 H Blood Pressure 170/90 H 181/78 H Blood Pressure Mean 116 112 Pulse Ox 92 96 98 Oxygen Delivery Method Room Air Nasal Cannula Nasal Cannula Oxygen Flow Rate (L/min) 3 3 04/17/21 00:00 Temperature Temperature Source Pulse Rate 63 Respiratory Rate 18 Blood Pressure 175/79 H Blood Pressure Mean 111 Pulse Ox 99 Oxygen Delivery Method Nasal Cannula Oxygen Flow Rate (L/min) 3 Positive well nourished and well developed General Appearance ED: well developed and NAD HEENT Reports moist mucous membranes normocephalic and atraumatic Eyes PERRL and EOMs intact bilaterally Neck full ROM and supple Resp normal respiratory effort and clear to auscultation bilaterally Cardio regular rate, regular rhythm and no murmurs GI non-tender and non-distended Auscultation: normoactive bowel sounds Palpation: soft Back/Spine no CVA tenderness General Back: other FROM Extremity normal to inspection General Extremety ED: Negative for edema, pulses abnormal or tenderness General Extremity: Negative for edema or pulses abnormal Neuro oriented x3, CN's II-XII intact bilaterally and no sensory deficits noted Neuro Narrative: Mild dysarthria, no aphasia. Sensorium / Orientation: awake and alert Motor Exam: strength 5/5 throughout Skin no rashes or lesions noted and no wounds STROKE Vital Signs/Narrative: Vital Signs Temp Pulse Resp BP Pulse Ox 04/17/21 00:00 63 18 175/79 H 99 04/16/21 23:51 63 24 H 181/78 H 98 04/16/21 22:58 96 04/16/21 22:52 98.1 F 69 19 H 170/90 H 92 NIHSS Initial: 1a Level of Consciousness: 0 1b LOC Questions (Score 2 if aphasic/stupor): 0 1c LOC Commands (Only score 1st attempt): 0 2 Best Gaze (If aphasic, use reflexive mvmts.): 0 3 Visual: 0 4 Facial Palsy: 0 5 Motor Arm Right (UN = amputation/fusion): 0 5 Motor Arm Left: 0 6 Motor Leg Right: 0 6 Motor Leg Left: 0 7 Limb ataxia (Only + if out of proportion): 0 8 Sensory (Aphasia/stupor=0 or 1, coma=2): 1 9 Best Language: 0 10 Dysarthria (mute, coma=2, intubated=UN): 1 11 Extinction and Inattention (only scored if +): 0 Total Score: 2 MDM MDM MDM Narrative Medical decision making narrative: Patient's condition did not change, his blood pressure is elevated, but not enough to require treatment if the etiology of this is ischemic stroke, pressure in the 170s is okay to continue observing. CT shows nothing acute. I do not think head/neck CTA is warranted right now since he has renal insufficiency and none of these symptoms started within the last 24 hours. He has been taking aspirin for the past week since this started. The rest of the work-up is as below and noted. I reexamination his condition is no different and is stable. Will admit to PCU observation for further evaluation and work-up. Lab Data Attestation: I reviewed the patient's lab results. Labs: Laboratory Results - last 24 hr 04/16/21 04/16/21 04/16/21 22:55 22:55 22:55 WBC 8.6 RBC 3.85 L Hgb 12.1 L Hct 36.6 L MCV 95.1 H MCH 31.4 MCHC 33.1 RDW Std Deviation 51.4 H RDW Coeff of Cherry 14.7 H Plt Count 272 MPV 8.7 Immature Gran % (Auto) 0.600 Neut % (Auto) 62.2 Lymph % (Auto) 24.9 Dickson % (Auto) 7.5 Eos % (Auto) 4.2 Baso % (Auto) 0.6 Absolute Neuts (auto) 5.3 Absolute Lymphs (auto) 2.13 Nucleated RBC % 0 PT 13.4 INR 1.1 APTT 29.8 Sodium 133 L Potassium 4.6 Chloride 98 Carbon Dioxide 30.0 Anion Gap 5 BUN 23 H Creatinine 1.41 H Estim Creat Clear Calc 43.76 Est GFR (MDRD) Af Amer 62 Est GFR (MDRD) Non-Af 51 L BUN/Creatinine Ratio 16.3 Glucose 90 Calcium 8.8 Troponin I High Sens 8.2 Radiography Diagnostic Testing: Radiology Impression Brain CT 04/16/21 23:10 IMPRESSION: No acute intracranial pathology. N.B. : The above Results were Read Back by Tino Workman DO to Dr. Henok Faulkner MD, and understanding confirmed on 04/16/2021 23:23:03 (ET). Electronically Signed: Tino Workman DO at 23:24 EDT Tel , Service support , ADDENDUM: 04/16/21 2331 IMPRESSION: No acute intracranial pathology. N.B. : The above Results were Read Back by Tino Workman DO to Dr. Henok Faulkner MD, and understanding confirmed on 04/16/2021 23:23:03 (ET). Electronically Signed: Tino Workman DO at 23:24 EDT Tel , Service support , Chest X-Ray 04/16/21 23:10 IMPRESSION: No acute cardiopulmonary disease Electronically Signed: Tino Workman DO at 23:48 EDT Tel , Service support , EKG Initial EKG: Attestation: I personally reviewed and interpreted this EKG as follows: Interpretation: Sinus Rhythm, No Acute Injury Pattern, RBBB and AV Block (1st deg) Prior EKG tracings: available for review Prior: Unchanged Stroke Documentation Questions Stroke Team Activated: No (Due to symptoms starting a week ago, not a candidate for IV TPA) Discharge Plan Triage Chief Complaint: Neuro S/Sx ED Provider: Henok Faulkner Dx/Rx/DC Orders Clinical Impression: Dysarthria Prescriptions: No Action olanzapine 5 mg tablet 2.5 mg PO DAILY RF: 0 gabapentin 100 mg capsule 300 mg PO TID RF: 0 multivitamin [Daily Multi-Vitamin] Tablet 1 tab PO DAILY RF: 0 diltiazem HCl 240 MG capsule 240 mg PO QHS RF: 0 tamsulosin 0.4 MG capsule 0.4 mg PO QHS RF: 0 simvastatin 20 MG tablet 20 mg PO DAILY RF: 0 ferrous sulfate 325 MG tablet 325 mg PO QHS RF: 0 levothyroxine 125 MCG tablet 125 mcg PO DAILY RF: 0 furosemide 20 mg tablet 10 mg PO DAILY RF: 0 duloxetine 60 mg capsule,delayed release(DR/EC) 120 mg PO DAILY RF: 0 tolterodine 2 mg capsule,extended release 24hr 4 mg PO BID RF: 0 acetaminophen 500 MG tablet 1,000 mg PO Q8 RF: 0 awyftxjunk-hxgknyibqluat-qztd 50-325-40 mg tablet 1 - 2 tab DAILY PRN (Reason: Headache) RF: 0 paroxetine HCl 30 mg tablet 30 mg PO DAILY RF: 0 albuterol sulfate 90 mcg/actuation HFA aerosol inhaler 20 puff INHALATION Q6H PRN PRN (Reason: Shortness Of Breath Or Wheezing) RF: 0 losartan 100 mg tablet 100 mg DAILY RF: 0 alprazolam 1 mg tablet 0.25 mg PO TID Qty: 90 RF: 0 Primary Care Provider: Amado Gottlieb Referrals: Amado Gottlieb MD [Primary Care Provider] - Disposition Disposition: Acute Care Hospital [facility]
[2021-04-16 23:51] VITALS: BP 181/78; PULSE 63; RESP 24; O2SAT 98
[2021-04-17] VITALS (12 sets, daily range): BP systolic 159–185; BP diastolic 78–96; PULSE 58–81; RESP 18–24; TEMP 36.2–36.5; O2SAT 89–100; BMI 33.5
--- NOTE | 2021-04-17 00:54 | PCM.HP.STD ---
HPI - General General Date of Admission: 04/17/21 Date of Service: 04/17/21 Chief Complaint: Slurry speech HPI Narrative DEAN NOBLES, is a 81 M with a significant history of CKD stage III; and COPD on nasal cannula oxygen who presents to the emergency department with 1 week history of slurred speech. His slurred speech worsened on the day of presentation so he came to emergency department for further evaluation. Because of his slurred speech he started taking daily aspirin. He has chronic numbness in bilateral legs and he uses a wheelchair. [facility] Medical History Anxiety and depression BPH (benign prostatic hyperplasia) CKD (chronic kidney disease), stage III COPD (chronic obstructive pulmonary disease) Essential hypertension Hypothyroidism Neuropathy JONAS (obstructive sleep apnea) PVD (peripheral vascular disease) Vitamin D deficiency Home Medications diltiazem HCl 240 mg PO QHS 08/05/19 [History Last Taken 08/20/19] ferrous sulfate 325 mg PO QHS 08/05/19 [History Last Taken 08/20/19] levothyroxine 125 mcg PO DAILY 08/05/19 [History Last Taken 08/20/19] simvastatin 20 mg PO DAILY 08/05/19 [History Last Taken 08/20/19] tamsulosin 0.4 mg PO QHS 08/05/19 [History Last Taken 08/20/19] furosemide 20 mg tablet 10 mg PO DAILY tab 08/06/19 [History Last Taken 08/20/19] acetaminophen 1,000 mg PO Q8 08/24/19 [History Last Taken Unknown] duloxetine 60 mg capsule,delayed release 120 mg PO DAILY cap 01/15/20 [History Last Taken Unknown] gabapentin 100 mg capsule 300 mg PO TID 01/15/20 [History Last Taken Unknown] multivitamin 1 tab PO DAILY 01/15/20 [History Last Taken Unknown] olanzapine 5 mg tablet 2.5 mg PO DAILY 01/15/20 [History Last Taken Unknown] tolterodine 2 mg capsule,extended release 24 hr 4 mg PO BID cap 01/15/20 [History Last Taken Unknown] alprazolam 1 mg tablet 0.25 mg PO TID #90 tab 07/16/20 [Rx Last Taken Unknown] albuterol sulfate 20 puff INHALATION Q6H PRN PRN 04/16/21 [History Last Taken Unknown] jcrjnauqfw-qjectvlgtrcme-hodh 1 - 2 tab DAILY PRN 04/16/21 [History Last Taken Unknown] losartan 100 mg DAILY 04/16/21 [History Last Taken Unknown] paroxetine HCl 30 mg PO DAILY 04/16/21 [History Last Taken Unknown] Allergy/AdvReac Type Severity Reaction Status Date / Time tramadol Allergy Intermediate Unknown Verified 01/15/20 10:00 Antihistamines - Alkylamine Allergy kidney Verified 01/15/20 10:00 failure Penicillins Allergy Unknown Verified 01/15/20 10:00 Sulfa (Sulfonamide Allergy Unknown Verified 01/15/20 10:00 Antibiotics) Family History Father Cancer prostate Sister ALS (amyotrophic lateral sclerosis) Surgical History History of foot surgery History of hand surgery History of hernia surgery History of partial amputation of toe of left foot History of rotator cuff surgery History of spinal fusion History of total hip replacement Hx of LASIK Social History Smoking Status: Never smoker alcohol intake: never substance use type: other details: Previous prescription medication abuse, Stopped age 58 caffeine: Yes Type: coffee Number of servings: 1 ROS ROS Narrative 12 point review of system is negative except as stated in HPI. Vital Signs Vital Signs Vital Signs: 04/16/21 22:52 04/16/21 22:58 04/16/21 23:51 Temperature 98.1 F Temperature Source Temporal Pulse Rate 69 63 Respiratory Rate 19 H 24 H Blood Pressure 170/90 H 181/78 H Blood Pressure Mean 116 112 Pulse Ox 92 96 98 Oxygen Delivery Method Room Air Nasal Cannula Nasal Cannula Oxygen Flow Rate (L/min) 3 3 04/17/21 00:00 04/17/21 00:42 Temperature 97.7 F L Temperature Source Temporal Pulse Rate 63 60 Respiratory Rate 18 20 H Blood Pressure 175/79 H 179/78 H Blood Pressure Mean 111 111 Pulse Ox 99 100 Oxygen Delivery Method Nasal Cannula Nasal Cannula Oxygen Flow Rate (L/min) 3 3 Weight Weight: 111.2 kg Body Mass Index (BMI) 34.2 Physical Exam Narrative Physical exam: General: Well-nourished, well-developed, no acute distress Head: Normocephalic, atraumatic, no tenderness Eyes: PERRLA, EOMI ENT, no trauma, moist mucous membranes, no rhinorrhea Neck: Nontender, full range of motion, no spinal tenderness, deformities, step-off CVS: Regular rate and rhythm Respiratory no acute distress, clear to auscultation bilaterally, chest wall nontender, no wheezing Abdomen: Soft, nontender, nondistended, normal bowel sounds, no masses : Deferred Extremities: Nontender full range of motion, no trauma. Left foot 3+ pitting edema; right foot 2+ pitting edema. Skin: Normal color, no trauma, abrasions Neuro: Alert, oriented, cranial nerves II through XII grossly intact; except patient has slurry speech. No dysmetria with hvibno-gg-[id number] test, bilateral. No sensation changes between bilateral lower extremities Results Lab / Micro Data Result Diagrams: 04/16/21 22:55 04/16/21 22:55 Labs: Laboratory Results - last 24 hr 04/16/21 04/16/21 04/16/21 22:55 22:55 22:55 WBC 8.6 RBC 3.85 L Hgb 12.1 L Hct 36.6 L MCV 95.1 H MCH 31.4 MCHC 33.1 RDW Std Deviation 51.4 H RDW Coeff of Cherry 14.7 H Plt Count 272 MPV 8.7 Immature Gran % (Auto) 0.600 Neut % (Auto) 62.2 Lymph % (Auto) 24.9 Morrow % (Auto) 7.5 Eos % (Auto) 4.2 Baso % (Auto) 0.6 Absolute Neuts (auto) 5.3 Absolute Lymphs (auto) 2.13 Nucleated RBC % 0 PT 13.4 INR 1.1 APTT 29.8 Sodium 133 L Potassium 4.6 Chloride 98 Carbon Dioxide 30.0 Anion Gap 5 BUN 23 H Creatinine 1.41 H Estim Creat Clear Calc 43.76 Est GFR (MDRD) Af Amer 62 Est GFR (MDRD) Non-Af 51 L BUN/Creatinine Ratio 16.3 Glucose 90 Calcium 8.8 Troponin I High Sens 8.[address] 04/16/21 23:10 IMPRESSION: No acute intracranial pathology. N.B. : The above Results were Read Back by Tino Workman DO to Dr. Henok Faulkner MD, and understanding confirmed on 04/16/2021 23:23:03 (ET). Electronically Signed: Tino Workman DO at 23:24 EDT Tel , Service support , ADDENDUM: 04/16/21 2331 IMPRESSION: No acute intracranial pathology. N.B. : The above Results were Read Back by Tino Workman DO to Dr. Henok Faulkner MD, and understanding confirmed on 04/16/2021 23:23:03 (ET). Electronically Signed: Tino Workman DO at 23:24 EDT Tel , Service support , Chest X-Ray 04/16/21 23:10 IMPRESSION: No acute cardiopulmonary disease Electronically Signed: Tino Workman DO at 23:48 EDT Tel , Service support , Assessment & Plan Assessment/Plan (1) Stroke-like symptoms: (2) JONAS (obstructive sleep apnea): PLAN: Strokelike symptoms Serial NINDS NIH Scale ordered Radiologist impression of CT of the head: No acute intracranial pathology. Actual CT image was independently interpreted and I agree with radiologist interpretation. -Check Hba1c, Lipid level Physical therapy, occupational therapy and speech therapy to work with patient. N.p.o. until bedside swallow eval. Daily aspirin ordered. On home simvastatin 20 mg daily. Change to atorvastatin 40 mg daily. Permissive hypertension. Control blood pressure with labetalol for systolic blood pressure of more than 220 or diastolic blood pressure of more than 120. Although his symptoms started a week ago because he reported that in the last 24 hours his symptoms has worsened we will just use permissive hypertension for 24 hours. MRI/MRA of head; brain; and neck. Echocardiogram ordered. Hypertension Blood pressure is not within goal Home blood pressure medication held secondary to permissive hypertension. As needed labetalol and hydralazine ordered. Trend blood pressure and adjust blood pressure medications. Obstructive sleep apnea CPAP continued COPD Stable on home oxygen. Impression of chest x-ray radiology: No acute cardiopulmonary process. Actual chest x-ray image was independently reviewed and I agree with radiologist interpretation. CKD stage IIIa Review emergency department labs showed creatinine of 1.41 which is within baseline. Stable Trend BMP. Chronic pain/headache [id number] Tylenol continued. Hold as needed Fioricet in order no to exceed total dosage of Tylenol per day. DVT prophylaxis: SCD ordered. Charges/Coding Visit Charges OBSV E&M: 21956 Initial observation care L2
--- NOTE | 2021-04-17 01:37 | MRI_ITS ---
STUDY: MRA NECK WITHOUT CONTRAST REASON FOR EXAM: Male, 81 years old. cva. cva TECHNIQUE: Source images were obtained, MIPs were performed. The study was performed unenhanced. COMPARISON: None. FINDINGS: RIGHT CAROTID ARTERIES: Antegrade flow within the right common carotid artery (CCA). Antegrade flow within the right carotid bulb. Antegrade flow within the right internal carotid (ICA) artery. Antegrade flow within the visualized cervical portion of the right internal carotid artery. LEFT CAROTID ARTERIES: Antegrade flow within the left common carotid artery (CCA). Antegrade flow within the left common carotid bulb. Antegrade flow within the origin of the left internal carotid (ICA) artery. Antegrade flow within the visualized cervical portion of the left internal carotid artery. VERTEBRAL ARTERIES: Antegrade flow within the bilateral vertebral artery. MRI/MRA Neck without Contrast IMPRESSION: No demonstrated occlusion Electronically Signed: Soraya Ibanez MD at 14:06 EDT Tel , Service support ,
--- NOTE | 2021-04-17 01:37 | ECHOD_ITS ---
Reason For Study: TIA/CVA Procedure This was a 2D Doppler, Color Flow transthoracic echocardiogram. Exam performed in department. Left Ventricle Normal LV size. Left ventricular systolic function is normal. The estimated ejection fraction is 60 %. No regional wall motion abnormalities noted. Right Ventricle Normal RV size. Normal systolic function. Atria The left atrium is moderately enlarged. Normal right atrium. Mitral Valve There is mild mitral annular calcification. Mild (1+) eccentric mitral valve insufficiency. Tricuspid Valve Normal tricuspid valve. Pulmonary artery systolic pressure is 30 mmHg. Aortic Valve Trisinus/trileaflet aortic valve. Pulmonic Valve The pulmonic valve is not well visualized. Great Vessels Normal aortic root. The pulmonary artery is normal size. Normal inferior vena cava. Pericardium/Pleural No pericardial effusion. Medication Negative bubble on previous echo. MMode/2D Measurements & Calculations LVIDd: 5.1 cm IVSd: 1.1 cm LVOT diam: 2.1 cm LVIDs: 3.3 cm LVPWd: 1.1 cm RVDd: 3.9 cm FS: 35.4 % LVOT area: 3.5 cm2 Ao root diam: 3.9 cm LAV(MOD-bp): 94.5 ml LVAd ap4: 30.3 cm2 LAV(MOD-bp) Indexed: 41.1 ml/m2 LVLd ap4: 8.6 cm LAV(MOD-sp2): 97.9 ml EDV(MOD-sp4): 88.4 ml LAV(MOD-sp4): 81.8 ml EDV(sp4-el): 90.2 ml LVAs ap4: 15.8 cm2 LVLs ap4: 6.9 cm ESV(MOD-sp4): 33.6 ml ESV(sp4-el): 30.7 ml EF(MOD-sp4): 62.0 % EF(sp4-el): 65.9 % LVAd ap2: 30.0 cm2 SV(MOD-sp4): 54.8 ml SV(MOD-sp2): 55.8 ml LVLd ap2: 8.5 cm EDV(MOD-sp2): 89.0 ml EDV(sp2-el): 90.4 ml LVAs ap2: 16.8 cm2 LVLs ap2: 7.3 cm ESV(MOD-sp2): 33.2 ml ESV(sp2-el): 32.6 ml EF(MOD-sp2): 62.7 % SV(sp4-el): 59.4 ml LA dimension(2D): 4.7 cm LA A4 area: 25.0 cm2 RA A4 area: 18.1 cm2 Doppler Measurements & Calculations MV E max reymundo: 92.6 cm/sec Lat Peak E' Reymundo: 8.9 cm/sec Med Peak E' Reymundo: 7.4 cm/sec MV A max reymundo: 149.8 cm/sec E/E' lat: 10.5 E/E' med: 12.4 MV E/A: 0.62 MV V2 max: 146.9 cm/sec MV P1/2t max reymundo: 99.0 cm/sec Ao V2 max: 164.4 cm/sec MV max P.6 mmHg MV P1/2t: 86.1 msec Ao max P.8 mmHg MV V2 mean: 80.7 cm/sec Ao V2 mean: 110.3 cm/sec MV mean P.9 mmHg MV dec slope: 336.8 cm/sec2 Ao mean P.4 mmHg MV V2 VTI: 37.8 cm MVA(P1/2t): 2.6 cm2 Ao V2 VTI: 37.9 cm MVA(VTI): 2.8 cm2 KALIA(I,D): 2.8 cm2 KALIA(V,D): 2.7 cm2 LV V1 max: 123.0 cm/sec SV(LVOT): 106.7 ml PA V2 max: 104.8 cm/sec LV V1 max P.1 mmHg LV V1 mean P.9 mmHg LV V1 mean: 79.5 cm/sec LV V1 VTI: 30.1 cm TR max reymundo: 251.2 cm/sec TR max P.2 mmHg ECHO/Echo Complete Interpretation Summary Normal LV size. Left ventricular systolic function is normal. The estimated ejection fraction is 60 %. Mild (1+) eccentric mitral valve insufficiency. Ordering Physician: Jamil Alex Referring Physician: Amado Gottlieb Performed By: Harper Tello RDCS
--- NOTE | 2021-04-17 01:37 | MRI_ITS ---
STUDY: MRA OF THE HEAD WITHOUT CONTRAST REASON FOR EXAM: Male, 81 years old. cva. TECHNIQUE: 3-D [id number] (TOF) imaging was performed with MIPs. The study was performed unenhanced. COMPARISON: None. FINDINGS: Patent right cavernous carotid artery. Patent left cavernous carotid artery. Patent right A1 segments of the anterior cerebral artery. Patent left A1 segments of the anterior cerebral artery. Unremarkable anterior communicating artery (ACOM) region. Normal bilateral A2 segments of the anterior cerebral arteries. Patent right M1 and M2 segments of the middle cerebral arteries, with a unremarkable M1 bifurcation. Patent left M1 and M2 segments of the middle cerebral arteries, with a unremarkable M1 bifurcation. There is non-visualization of the right posterior communicating artery (PCOM). There is a persistent origin of the left posterior cerebral artery with absence of the P1 segment of the left posterior cerebral artery. Patent basilar artery with a normal basilar bifurcation. Patent bilateral posterior cerebral arteries. MRI/MRA Head ONLY without Contrast IMPRESSION: No large vessel occlusion. Electronically Signed: Soraya Ibanez MD at 16:00 EDT Tel , Service support ,
--- NOTE | 2021-04-17 01:37 | MRI_ITS ---
STUDY: MRI BRAIN WITHOUT CONTRAST REASON FOR EXAM: Male, 81 years old. cva TECHNIQUE: Standardized multiplanar fat and water weighted pulse sequences were obtained. COMPARISON: CT Brain Apr 16 2021 FINDINGS: There is mild cerebral atrophy with widening of the extra-axial spaces and ventricular dilatation. There are multiple white matter hyperintensities, distributed throughout the deep white matter tracts of the cerebral hemispheres, consistent with moderate chronic white matter ischemic changes. Normal bilateral basal ganglia. Normal thalami. There is no extra-axial fluid accumulation. Normal sella turcica, pituitary gland, infundibular stalk, optic chiasm and hypothalamus. Normal tectal plate and pineal gland. Normal midbrain, thor and medulla. Normal cerebellum. Normal basal cisterns. MRI/Brain without Contrast IMPRESSION: No acute intracranial abnormality. Mild chronic microvascular ischemic changes Electronically Signed: Soraya Ibanez MD at 13:56 EDT Tel , Service support ,
[2021-04-17] MEDS: Zolpidem Tartrate 5 MG Tablet PO (02:11)
[2021-04-17] MEDS: Acetaminophen 500 MG Tablet 1000 MG PO ×2 (05:52→14:05)
[2021-04-17] MEDS: Levothyroxine 125 MCG Tablet PO (05:52)
[2021-04-17] MEDS: ALPRAZolam 0.25 MG Tablet PO ×2 (05:52→14:04)
[2021-04-17] MEDS: Gabapentin 300 MG Capsule PO ×2 (05:52→14:05)
[2021-04-17 08:24] LABS: Hemoglobin A1c 5.1 % (3.8-5.6)
[2021-04-17 08:35] LABS: Anion Gap 3 (5-15); BUN 18 mg/dL (7-18); BUN/Creat Ratio 17.3 RATIO (10-20); Calcium,Total 8.9 mg/dL (8.5-10.1); Chloride 103 mmol/L (98-107); Cholesterol 142 mg/dL (200); Creatinine, Serum 1.04 mg/dL (0.70-1.30); EST Glomerular Filtration Rate 73 mL/min (>60); Est Glom Filt Rate - Afr Amer 88 mL/min (>60); Estimated Creatinine Clearance 59.33 ml/min; Glucose 95 mg/dL (74-106); High Density Lipoprotein 68 mg/dL; Potassium 4.1 mmol/L (3.5-5.1); Sodium Level 138 mmol/L (136-145); Triglycerides 39 mg/dL; Very Low Density Lipoprotein 8 mg/dL (5-40)
[2021-04-17] MEDS: Furosemide 20 MG Tablet 10 MG PO (08:52)
[2021-04-17] MEDS: OLANZapine 2.5 MG Tablet PO (08:53)
[2021-04-17] MEDS: PARoxetine 10 MG Tablet 30 MG PO (08:53)
[2021-04-17] MEDS: Tolterodine Tartrate 4 MG CAP.SA PO (08:56)
[2021-04-17] MEDS: Multivitamins,Therapeutic Tablet 1 TABLET PO (08:57)
[2021-04-17] MEDS: Aspirin 81 MG TAB.CHEW PO (08:57)
--- NOTE | 2021-04-17 09:55 | CASEMGMT ---
RN MEDARDO Face to Face with patient for initial transition planning/care coordination assessment. RN CM introduced self and role at [facility]. Patient lying in bed, alert and oriented, at bedside. Patient willing to participate in assessment and is able to answer all questions appropriately. Care providers, pharmacy, and demographics verified. Patient wishes to discharge home, denies need for home health at this time. Patient states he has no further needs or concerns at this time. CM to follow for discharge planning needs that may arise. PCP: Chery Specialists: Sejal director corporate Preferred Pharmacy: [facility] Insurance: PEX Card Prescription Benefit: yes Living Will/HPOA: yes, [place] LNOK: Living Arrangements: Paitent lives with in 2 story home with bed and bath on main floor. Patient is independent for selfcare. Transportation: self, DME/HHC: Patient has shower chair, raised toilet, grab bars, cpap, and home oxygen at HS at 3.5 lpm through [employer]. Patient denies previous HHC, has been to [facility] in the past. Disposition Plan: Patient to discharge home with family support and follow-up plans in place. Olga CORDERO, RN, CM
--- NOTE | 2021-04-17 13:13 | PCM.DC.SUM ---
Documented by User: Gilberto MEDLEY 04/17/21 17:53 Providers Date of Admission: 04/17/21 Primary Care Physician: Dr. Amado Gottlieb MD Reason For Visit: STROKE LIKE SYMPTOMS Diagnosis Discharge Diagnosis (1) Stroke-like symptoms: Status: Acute Code(s): R29.90 - Unspecified symptoms and signs involving the nervous system (2) JONAS (obstructive sleep apnea): Status: Chronic Code(s): G47.33 - Obstructive sleep apnea (adult) (pediatric) Medications at Discharge Home Medications diltiazem HCl 240 mg PO QHS 08/05/19 ferrous sulfate 325 mg PO QHS 08/05/19 levothyroxine 125 mcg PO DAILY 08/05/19 simvastatin 20 mg PO DAILY 08/05/19 tamsulosin 0.4 mg PO QHS 08/05/19 furosemide 20 mg tablet 10 mg PO DAILY tab 08/06/19 acetaminophen 1,000 mg PO Q8 08/24/19 duloxetine 60 mg capsule,delayed release 120 mg PO DAILY cap 01/15/20 gabapentin 100 mg capsule 300 mg PO TID 01/15/20 multivitamin 1 tab PO DAILY 01/15/20 olanzapine 5 mg tablet 2.5 mg PO DAILY 01/15/20 tolterodine 2 mg capsule,extended release 24 hr 4 mg PO BID cap 01/15/20 alprazolam 1 mg tablet 0.25 mg PO TID #90 tab 07/16/20 albuterol sulfate 20 puff INHALATION Q6H PRN PRN 04/16/21 gdxmbacila-nwpcffliibndx-wbui 1 - 2 tab DAILY PRN 04/16/21 losartan 100 mg DAILY 04/16/21 paroxetine HCl 30 mg PO DAILY 04/16/21 Hospital Course Summary of Care Provided Minutes Spent on Discharge: 35 Hospital Course: Disposition: No home health care needs or additional therapies identified on PT/OT eval, patient to be discharged home. 1) Dysarthria secondary to suspected stroke [facility] teleneurology consulted: Recommend patient to follow-up with ENT to investigate for possible complications related to past dental procedure, follow-up with neurological specialist to be evaluated for possible ALS, obtain acetylcholinesterase antibody test to assess for myasthenia gravis. Brain MRI demonstrated no evidence of acute ischemia or infract. Head/Neck MRA demonstrated no occlusion. Echocardiogram demonstrates normal LV size and systolic function and an estimated EF of 60%. No additional therapy needs identified via PT/OT eval. Plan; discharge home, referrals and recommendations as above, will contact patient in regards to acetylcholinesterase antibody test results to assess for myasthenia gravis. 2) HTN Stable, continue losartan and furosemide. 3) JONAS Continue using home CPAP. 4) COPD Stable. Chest x-ray admission demonstrated no acute cardiopulmonary process. Continue home bronchodilators. 5) CKD stage III Stable, creatinine the baseline. Patient seen by Gilberto Washington PA-C, under the supervision of Dr. Torres. Physical Exam Narrative Patient is an 81-year-old male comfortably resting in bed, alert and orient x3. Denies chest pain, shortness of breath, palpitations, hemoptysis, sputum production, fever, chills, N/V/D. Const alert, oriented x3 and no apparent distress HEENT normocephalic, head/scalp atraumatic and hearing grossly normal bilaterally Eyes EOMs intact bilaterally and conjunctivae normal Neck no lymphadenopathy, supple and no JVD Resp normal respiratory effort, no retractions, no use of accessory muscles and clear to auscultation bilaterally Cardio regular rate, regular rhythm, no murmurs and no JVD GI normal to inspection, nondistended, normoactive bowel sounds, soft to palpation and non-tender Extremity normal to inspection, full ROM and no clubbing, cyanosis or edema Skin no rashes or lesions noted, no wounds and skin turgor normal Neuro CN's II-XII intact bilaterally Psych affect normal Weight / BMI Weight Weight: 240 lb 8.389 oz Body Mass Index (BMI) 33.5 ABG / Lab / Microbiology Data Result Diagrams: 04/16/21 22:55 04/17/21 07:37 Laboratory: Laboratory Results - last 24 hr 04/16/21 04/16/21 04/16/21 22:55 22:55 22:55 WBC 8.6 RBC 3.85 L Hgb 12.1 L Hct 36.6 L MCV 95.1 H MCH 31.4 MCHC 33.1 RDW Std Deviation 51.4 H RDW Coeff of Cherry 14.7 H Plt Count 272 MPV 8.7 Immature Gran % (Auto) 0.600 Neut % (Auto) 62.2 Lymph % (Auto) 24.9 Woodward % (Auto) 7.5 Eos % (Auto) 4.2 Baso % (Auto) 0.6 Absolute Neuts (auto) 5.3 Absolute Lymphs (auto) 2.13 Nucleated RBC % 0 PT 13.4 INR 1.1 APTT 29.8 Sodium 133 L Potassium 4.6 Chloride 98 Carbon Dioxide 30.0 Anion Gap 5 BUN 23 H Creatinine 1.41 H Estim Creat Clear Calc 43.76 Est GFR (MDRD) Af Amer 62 Est GFR (MDRD) Non-Af 51 L BUN/Creatinine Ratio 16.3 Glucose 90 Hemoglobin A1c Calcium 8.8 Troponin I High Sens 8.2 Triglycerides Cholesterol LDL Cholesterol VLDL Cholesterol HDL Cholesterol 04/17/21 04/17/21 07:37 07:37 WBC RBC Hgb Hct MCV MCH MCHC RDW Std Deviation RDW Coeff of Cherry Plt Count MPV Immature Gran % (Auto) Neut % (Auto) Lymph % (Auto) Woodward % (Auto) Eos % (Auto) Baso % (Auto) Absolute Neuts (auto) Absolute Lymphs (auto) Nucleated RBC % PT INR APTT Sodium 138 Potassium 4.1 Chloride 103 Carbon Dioxide 32.0 Anion Gap 3 L BUN 18 Creatinine 1.04 Estim Creat Clear Calc 59.33 Est GFR (MDRD) Af Amer 88 Est GFR (MDRD) Non-Af 73 BUN/Creatinine Ratio 17.3 Glucose 95 Hemoglobin A1c 5.1 Calcium 8.9 Troponin I High Sens Triglycerides 39 Cholesterol 142 LDL Cholesterol 66 VLDL Cholesterol 8 HDL Cholesterol 68 Radiography Diagnostic Testing: Radiology Impression Brain CT 04/16/21 23:10 IMPRESSION: No acute intracranial pathology. N.B. : The above Results were Read Back by Tino Workman DO to Dr. Henok Faulkner MD, and understanding confirmed on 04/16/2021 23:23:03 (ET). Electronically Signed: Tino Workman DO at 23:24 EDT Tel , Service support , ADDENDUM: 04/16/21 9861 IMPRESSION: No acute intracranial pathology. N.B. : The above Results were Read Back by Tino Workman DO to Dr. Henok Faulkner MD, and understanding confirmed on 04/16/2021 23:23:03 (ET). Electronically Signed: Tino Workman DO at 23:24 EDT Tel , Service support , Chest X-Ray 04/16/21 23:10 IMPRESSION: No acute cardiopulmonary disease Electronically Signed: Tino Workman DO at 23:48 EDT Tel , Service support , Echocardiogram 04/17/21 01:37 Interpretation Summary Normal LV size. Left ventricular systolic function is normal. The estimated ejection fraction is 60 %. Mild (1+) eccentric mitral valve insufficiency. Ordering Physician: Jamil Alex Referring Physician: Amado Gottlieb Performed By: Harper Tello RDCS Meaningful Use Info Meaningful Use Diagnoses (Choose all that apply): None applicable Discharge Plan Admission Admit Date/Time: 04/17/21 00:53 Primary Reason for Your Visit: Stroke like symtpoms. Attending Provider: Rian Torres Primary Care Provider: Amado Gottlieb Instructions Additional Instructions / Restrictions: Patient Problems: Altered Health Status related to Hospitalization Patient Goals: *Optimal Level of Health *Keep Appointments *Medication Compliance *Remain Safe1) Follow up with a Neurology specialist for ALS (Emmie Gehrigs disease) - [facility] ([place]): [phone] - [facility]: [phone] 2) You will be contacted about ACHR AB test when test returns from the lab, we are assessing for possible Myasthenia Gravis. Discharge Orders/Prescriptions Prescriptions: Continued olanzapine 5 mg tablet 2.5 mg PO DAILY RF: 0 gabapentin 100 mg capsule 300 mg PO TID RF: 0 multivitamin [Daily Multi-Vitamin] Tablet 1 tab PO DAILY RF: 0 diltiazem HCl 240 MG capsule 240 mg PO QHS RF: 0 tamsulosin 0.4 MG capsule 0.4 mg PO QHS RF: 0 simvastatin 20 MG tablet 20 mg PO DAILY RF: 0 ferrous sulfate 325 MG tablet 325 mg PO QHS RF: 0 levothyroxine 125 MCG tablet 125 mcg PO DAILY RF: 0 furosemide 20 mg tablet 10 mg PO DAILY RF: 0 duloxetine 60 mg capsule,delayed release(DR/EC) 120 mg PO DAILY RF: 0 tolterodine 2 mg capsule,extended release 24hr 4 mg PO BID RF: 0 acetaminophen 500 MG tablet 1,000 mg PO Q8 RF: 0 djjllypsjq-wcyssenkkflfr-dafm 50-325-40 mg tablet 1 - 2 tab DAILY PRN (Reason: Headache) RF: 0 paroxetine HCl 30 mg tablet 30 mg PO DAILY RF: 0 albuterol sulfate 90 mcg/actuation HFA aerosol inhaler 20 puff INHALATION Q6H PRN PRN (Reason: Shortness Of Breath Or Wheezing) RF: 0 losartan 100 mg tablet 100 mg DAILY RF: 0 alprazolam 1 mg tablet 0.25 mg PO TID Qty: 90 RF: 0 Referrals / Follow Up: Amado Gottlieb MD [Primary Care Provider] - Within 2 Weeks (Please call and schedule follow up appointment) Tae Sarabia MD [STAFF PHYSICIAN] - Within 2 Weeks (Follow-up with ENT for possible complications related to previous dental procedure.) Disposition Disposition (needs filled in before D/C Order can be placed): Home, Self Care Documented by User: Dr. Rian Torres DO 04/18/21 07:54 Providers Date of Admission: 04/17/21 Reason For Visit: STROKE LIKE SYMPTOMS Medications at Discharge Home Medications diltiazem HCl 240 mg PO QHS 08/05/19 ferrous sulfate 325 mg PO QHS 08/05/19 levothyroxine 125 mcg PO DAILY 08/05/19 simvastatin 20 mg PO DAILY 08/05/19 tamsulosin 0.4 mg PO QHS 08/05/19 furosemide 20 mg tablet 10 mg PO DAILY tab 08/06/19 acetaminophen 1,000 mg PO Q8 08/24/19 duloxetine 60 mg capsule,delayed release 120 mg PO DAILY cap 01/15/20 gabapentin 100 mg capsule 300 mg PO TID 01/15/20 multivitamin 1 tab PO DAILY 01/15/20 olanzapine 5 mg tablet 2.5 mg PO DAILY 01/15/20 tolterodine 2 mg capsule,extended release 24 hr 4 mg PO BID cap 01/15/20 alprazolam 1 mg tablet 0.25 mg PO TID #90 tab 07/16/20 albuterol sulfate 20 puff INHALATION Q6H PRN PRN 04/16/21 asjgbbsxfq-vojdvcmygezkl-ilgk 1 - 2 tab DAILY PRN 04/16/21 losartan 100 mg DAILY 04/16/21 paroxetine HCl 30 mg PO DAILY 04/16/21 Hospital Course Summary of Care Provided Minutes Spent on Discharge: 32 Hospital Course: 81-year-old male presents with dysarthria. Patient underwent a neurological work-up including MRI was negative for stroke. Patient was seen by [facility] teleneurology who recommended for follow-up with ENT as there may be issues regards to his recent dental procedure but also recommended neurologic evaluation given family history of ALS. They did also recommend checking pseudocholinesterase antibodies to evaluate for myasthenia gravis. Physical Exam Const alert HEENT normocephalic ABG / Lab / Microbiology Data Result Diagrams: 04/16/21 22:55 04/17/21 07:37 D/C Instructions Discharge Diet: No restrictions Discharge Plan Admission Admit Date/Time: 04/17/21 00:53 Primary Reason for Your Visit: Stroke like symtpoms. Attending Provider: Rian Torres Primary Care Provider: Amado Gottlieb Instructions Additional Instructions / Restrictions: Patient Problems: Altered Health Status related to Hospitalization Patient Goals: *Optimal Level of Health *Keep Appointments *Medication Compliance *Remain Safe1) Follow up with a Neurology specialist for ALS (Emmie Gehrigs disease) - [facility] ([place]): [phone] [facility] Parkinson and Movement Disorder: [phone] 2) You will be contacted about ACHR AB test when test returns from the lab, we are assessing for possible Myasthenia Gravis. Discharge Orders/Prescriptions Prescriptions: Continued olanzapine 5 mg tablet 2.5 mg PO DAILY RF: 0 gabapentin 100 mg capsule 300 mg PO TID RF: 0 multivitamin [Daily Multi-Vitamin] Tablet 1 tab PO DAILY RF: 0 diltiazem HCl 240 MG capsule 240 mg PO QHS RF: 0 tamsulosin 0.4 MG capsule 0.4 mg PO QHS RF: 0 simvastatin 20 MG tablet 20 mg PO DAILY RF: 0 ferrous sulfate 325 MG tablet 325 mg PO QHS RF: 0 levothyroxine 125 MCG tablet 125 mcg PO DAILY RF: 0 furosemide 20 mg tablet 10 mg PO DAILY RF: 0 duloxetine 60 mg capsule,delayed release(DR/EC) 120 mg PO DAILY RF: 0 tolterodine 2 mg capsule,extended release 24hr 4 mg PO BID RF: 0 acetaminophen 500 MG tablet 1,000 mg PO Q8 RF: 0 qiqwznyheh-vaxcmjzrjdmuf-syvl 50-325-40 mg tablet 1 - 2 tab DAILY PRN (Reason: Headache) RF: 0 paroxetine HCl 30 mg tablet 30 mg PO DAILY RF: 0 albuterol sulfate 90 mcg/actuation HFA aerosol inhaler 20 puff INHALATION Q6H PRN PRN (Reason: Shortness Of Breath Or Wheezing) RF: 0 losartan 100 mg tablet 100 mg DAILY RF: 0 alprazolam 1 mg tablet 0.25 mg PO TID Qty: 90 RF: 0 Referrals / Follow Up: Amado Gottlieb MD [Primary Care Provider] - Within 2 Weeks (Please call and schedule follow up appointment) Tae Sarabia MD [STAFF PHYSICIAN] - Within 2 Weeks (Follow-up with ENT for possible complications related to previous dental procedure.) Disposition Disposition (needs filled in before D/C Order can be placed): Home, Self Care Charges/Coding Visit Charges OBSV E&M: 10224 Observation care discharge
--- NOTE | 2021-04-17 14:23 | PCM.DC ---
Discharge Instructions Diet Discharge Diet: No restrictions Activity Discharge Activity: Return to Normal Activity Follow Up Care Please Follow Up With: Primary care provider When: Within the next two weeks. Test Results: Test results from this visit will be discussed in further detail at your follow-up appointment, if applicable. Discharge Plan Admission Admit Date/Time: 04/17/21 00:53 Primary Reason for Your Visit: Stroke like symtpoms. 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 Discharge Orders/Prescriptions Prescriptions: Continued olanzapine 5 mg tablet 2.5 mg PO DAILY RF: 0 gabapentin 100 mg capsule 300 mg PO TID RF: 0 multivitamin [Daily Multi-Vitamin] Tablet 1 tab PO DAILY RF: 0 diltiazem HCl 240 MG capsule 240 mg PO QHS RF: 0 tamsulosin 0.4 MG capsule 0.4 mg PO QHS RF: 0 simvastatin 20 MG tablet 20 mg PO DAILY RF: 0 ferrous sulfate 325 MG tablet 325 mg PO QHS RF: 0 levothyroxine 125 MCG tablet 125 mcg PO DAILY RF: 0 furosemide 20 mg tablet 10 mg PO DAILY RF: 0 duloxetine 60 mg capsule,delayed release(DR/EC) 120 mg PO DAILY RF: 0 tolterodine 2 mg capsule,extended release 24hr 4 mg PO BID RF: 0 acetaminophen 500 MG tablet 1,000 mg PO Q8 RF: 0 kecotwadtg-dkpndwgcmnpsi-blvv 50-325-40 mg tablet 1 - 2 tab DAILY PRN (Reason: Headache) RF: 0 paroxetine HCl 30 mg tablet 30 mg PO DAILY RF: 0 albuterol sulfate 90 mcg/actuation HFA aerosol inhaler 20 puff INHALATION Q6H PRN PRN (Reason: Shortness Of Breath Or Wheezing) RF: 0 losartan 100 mg tablet 100 mg DAILY RF: 0 alprazolam 1 mg tablet 0.25 mg PO TID Qty: 90 RF: 0 Referrals / Follow Up: Amado Gottlieb MD [Primary Care Provider] - Within 2 Weeks Tae Sarabia MD [STAFF PHYSICIAN] - Within 2 Weeks (Follow-up with ENT for possible complications related to previous dental procedure.) Disposition Disposition (needs filled in before D/C Order can be placed): Home, Self Care
--- NOTE | 2021-04-17 15:10 | TELEMED_ITS ---
[facility] Telemed has confirmed receipt of a request for visit. This document confirms receipt of the order initiating the consult. To find the results of the consultation, please view the patient's reports for the scanned Telemed Consult.
--- NOTE | 2021-04-17 15:56 | CASEMGMT ---
EUGENE CM in to complete GARCIA form with patient. EUGENE BATRES explained GARCIA form, patient voiced understanding. Patient signed GARCIA form and filed in chart. Patient provided with copy of signed GARCIA form. Patient had no further questions or concerns at this time.
[2021-04-19 01:53] LABS: Bedside Glucose 95 mg/dL (70-110)
[2021-04-26 12:36] LABS: ACHR AB Modulating <12 % (0-20); ACHR Recep AB, Blocking 25 % (0-25)
== END 2021-04-17 17:48 | disposition home or self-care (01) ==
LOC: ED 04-17 00:47 → PCU 04-17 01:07
PROVIDERS: Admitting Provider Hospitalist; Emergency Provider Emergency Medicine; PCP Family Medicine
DX: R29.90 Unspecified symptoms and signs involving the nervous system (principal); G47.33 Obstructive sleep apnea (adult) (pediatric); R47.1 Dysarthria and anarthria; I73.9 Peripheral vascular disease, unspecified; N18.31 Chronic kidney disease, stage 3a; I12.9 Hypertensive chronic kidney disease with stage 1 through stage 4 chronic kidney disease, or unspecified chronic kidney disease; F32.9 Major depressive disorder, single episode, unspecified; F41.9 Anxiety disorder, unspecified; N40.0 Benign prostatic hyperplasia without lower urinary tract symptoms; J44.9 Chronic obstructive pulmonary disease, unspecified; E03.9 Hypothyroidism, unspecified; G62.9 Polyneuropathy, unspecified; R29.702 NIHSS score 2; G89.29 Other chronic pain; Z79.899 Other long term (current) drug therapy; Z99.81 Dependence on supplemental oxygen
CPT/HCPCS: 36415; 70450; 70544; 70547; 70551; 71045; 80048; 80061; 82962; 83036; 83519; 84484; 85025; 85610; 85730; 92610; 93005; 93306; 94762; 97802; 99218; 99284; Q9957; A4216; G0378; J3490

== ENCOUNTER → 2022-02-16 | Outpatient (REF) | payer SELFPAY ==
[2022-02-16 07:55] LABS: Absolute Lymphocyte Count 2.01 X10^3/uL (0.83-4.51); Absolute Neutrophil Count 6.5 X10^3/uL (2.0-7.7); Basophil# 0.09 X10^3/uL; Basophil% 0.8 % (0-1); Eosinophil# 0.44 X10^3/uL; Eosinophils% 4.1 % (0-5); Hematocrit 38.8 % (40-54); Hemoglobin 12.7 g/dL (13.0-16.5); Lymphocyte # 2.01 X10^3/ul (0.83-4.51); Lymphocyte % 18.8 % (19-41); Mean Corp Hgb Conc 32.7 g/dL (32-36); Mean Corpuscular Hgb 32.4 pg (27.0-32.0); Monocyte# 1.62 X10^3/uL; Monocyte% 15.1 % (0-10); NRBC Flagged by Analyzer 0 % (0-5); Neutrophil # 6.46 X10^3/uL (2.7-7.7); Neutrophil % 60.5 % (47-70); POSITIVE DIFFERENTIAL YES; Platelet Count 202 K/mm3 (150-450); RBC Distribution Width CV 13.9 % (11.6-14.6); RBC Distribution Width SD 50.7 fl (35.1-43.9); Red Blood Count 3.92 M/mm3 (4.6-6.2); White Blood Count 10.7 K/mm3 (4.4-11.0)
[2022-02-16 07:59] LABS: Differential Indicated SCAN CRITERIA MET
[2022-02-16 08:21] LABS: ALB/GLOB Ratio 0.7 RATIO (0.9-2.4); AST(SGOT) 18 U/L (15-37); Alanine Aminotransfer ALT/SGPT 21 U/L (16-61); Albumin, Serum 2.3 g/dL (3.2-5.0); Alkaline Phosphatase 74 U/L (45-117); Anion Gap 4 (5-15); BUN 31 mg/dL (7-18); BUN/Creat Ratio 23.8 RATIO (10-20); Calcium,Total 8.7 mg/dL (8.5-10.1); Chloride 95 mmol/L (98-107); EST Glomerular Filtration Rate 56 mL/min (>60); Est Glom Filt Rate - Afr Amer 68 mL/min (>60); Globulin 3.4 g/dL (2.2-4.2); Glucose 87 mg/dL (74-106); Potassium 4.6 mmol/L (3.5-5.1); Protein, Total 5.7 g/dL (6.4-8.2); Sodium Level 132 mmol/L (136-145)
[2022-02-16 08:53] LABS: Platelet Estimate ADEQUATE (ADEQ); Red Cell Morphology NORM C+C NORMAL (NORM C&C)
== END | disposition home or self-care (01) ==
LOC: OLS.ACH 05:00
PROVIDERS: PCP Family Medicine; Referring Provider Family Medicine; Visit Provider Family Medicine
DX: N18.32 Chronic kidney disease, stage 3b (principal); J44.9 Chronic obstructive pulmonary disease, unspecified; J96.91 Respiratory failure, unspecified with hypoxia
CPT/HCPCS: 36415; 80053; 85025

== ENCOUNTER → 2022-03-28 | Outpatient (REF) | payer MEDICARE, SELFPAY ==
[2022-03-28 08:58] LABS: Anion Gap 5 (5-15); BUN 36 mg/dL (7-18); Calcium,Total 8.6 mg/dL (8.5-10.1); Chloride 96 mmol/L (98-107); EST Glomerular Filtration Rate 48 mL/min (>60); Est Glom Filt Rate - Afr Amer 58 mL/min (>60); Glucose 94 mg/dL (74-106); Potassium 4.3 mmol/L (3.5-5.1); Sodium Level 133 mmol/L (136-145)
== END | disposition home or self-care (01) ==
LOC: OLS.ACH 06:20
PROVIDERS: PCP Family Medicine; Visit Provider Family Medicine
DX: R60.9 Edema, unspecified (principal)
CPT/HCPCS: 36415; 80048